=== PATIENT | female | born 1990 | race Caucasian/White ===

== ENCOUNTER 2021-11-15 08:14 | Emergency (ER) | payer MEDICAID, SELFPAY ==
[2021-11-15 08:17] VITALS: BP 129/84; PULSE 969; RESP 18; TEMP 36.8; O2SAT 99; BMI 33.3
--- NOTE | 2021-11-15 12:21 | PC.NURSE ---
No answer during roll call.
== END 2021-11-15 12:34 | disposition left against medical advice (07) ==
LOC: HO.ED 12:23
PROVIDERS: Emergency Provider Emergency Medicine; PCP Nurse Practitioner Family
DX: L02.416 Cutaneous abscess of left lower limb (principal)
CPT/HCPCS: 99281

== ENCOUNTER 2022-12-08 12:19 | Emergency (ER) | payer OTHER, SELFPAY ==
--- NOTE | ~2022-12-08 | XR_ITS ---
EXAMINATION: XR FOREARM, RIGHT CLINICAL INFORMATION: Right forearm pain COMPARISON: None available. TECHNIQUE: 2 views of the right forearm. AP and lateral views of the right forearm were obtained. FINDINGS: The bones and soft tissues are normal. No fracture. Imaged portions of the elbow and wrist are unremarkable. XR/XR forearm RT 2V IMPRESSION: Unremarkable right forearm x-rays.
[2022-12-08 12:29] VITALS: BP 136/58; PULSE 89; RESP 18; TEMP 36.8; O2SAT 98; BMI 32.6
--- NOTE | 2022-12-08 12:29 | ED.SKABFB ---
HPI - Skin/Abscess/Foreign Bdy General Chief complaint: Wound/Laceration Stated complaint: R arm abscess Time Seen by Provider: 12/08/22 13:33 Source: patient Mode of arrival: ambulatory Limitations: no limitations History of Present Illness HPI narrative: Patient is a 32 year old female history of IV drug abuse presenting with an abscess to the right forearm which has been present for 5 days worsening secondary to IV drug use. Patient reports the abscesses self draining, red, hot and painful to the touch and has black stuff over it. Patient states that she popped the abscess yesterday with decrease in pain at this time. Patient reports current IV drug abuse, last use a few hours prior to arrival. Patient denies all sign HI. Denies fevers, chills, chest pain, shortness of breath, nausea, vomiting, abdominal pain, headache, vision changes, dizziness and weakness. Related Data Previous Rx's Medication Instructions Recorded cephalexin 500 mg tablet 500 mg PO Q6H 10 days #40 tabs 12/08/22 doxycycline hyclate 100 mg capsule 100 mg PO BID 10 days #20 caps 12/08/22 Allergies Allergy/AdvReac Type Severity Reaction Status Date / Time SEASONAL ALLERGIES Allergy Unknown ITCHY Uncoded 12/08/22 12:29 EYES/SNEEZING Review of Systems Review of Systems: Constitutional : No Weight loss, No Fever, No Chills, No Fatigue, No Malaise ENT/Mouth : No sore throat, No Rhinorrhea Eyes: No Eye Pain, No Swelling, No Redness Cardiovascular : No Chest Pain, No SOB, No Dyspnea on Exertion, No Orthopnea, No Edema, No Palpitations Respiratory : No Cough, No Sputum, No Wheezing Gastrointestinal : No Nausea, No Vomiting, No Diarrhea, No Constipation, No abdominal Pain, No Hematochezia, No Melena Genitourinary : No Dysuria, No Urinary Frequency, No Hematuria, Musculoskeletal : No joint pain, No Myalgias, No Joint Swelling Skin : No Skin Lesions, No rash, + abscess Neuro : No Weakness, No Numbness, No Dizziness, No Headache Psych : No Anxiety/Panic, No Depression All other systems reviewed and are negative Yes all other systems are reviewed and are negative PMFSH Past Medical History Attestation statement: The following information was validated with the patient. Source: old records reviewed and nursing notes reviewed Social History Social History Smoked in Last 30 Days: Yes Advance Directives: No Advance Directives Information Provided: No Physical Exam Vital Signs: Vital Signs: Last Vital Signs Temp 98.4 F 12/08/22 14:51 Pulse 71 12/08/22 14:51 Resp 16 12/08/22 14:51 BP 107/66 12/08/22 14:51 Pulse Ox 100 12/08/22 14:51 O2 Del Method Room Air 12/08/22 14:51 BMI result Body Mass Index 32.6 vss Appearance: Alert.? Oriented X3.? No acute distress.? Head: Normocephalic, atraumatic, no step-offs or deformities Eyes: Pupils equal, round and reactive to light.? ENT: Pharynx normal.? Neck: Normal inspection.? Neck supple.? CVS: Normal heart rate and rhythm.? Pulses normal.? Respiratory: No respiratory distress.? Breath sounds normal.? Abdomen: Soft and nontender.? Skin: Skin warm and dry.? Normal skin color.? Normal skin turgor.? Extremities: No lower extremity edema.? No calf ttp. 5/5 strength to bilateral upper and lower extremities +Right forearm with swelling and cellulitis, moderate sized carbuncle with multiple small pustules and area of black nectrotic tissue on the surface 2+ radial pulses equal bilateral. No wrist drop. Capillary refill less than [address] Track haywood rule out bilateral upper extremities Back: No midline tenderness, no C-spine tenderness, full range of motion, no CVA tenderness bilaterally Neuro: Oriented X 3.? No motor deficit.? No sensory deficit. CN 2-12 intact Course Course Course Narrative: RME - 32 yo female with history of IVDA presents to the ER for evaluation of a right forearm abscess for the last 4 days. some of it popped last night. No fever or chills. Right forearm with swelling and cellulitis, moderate sized carbuncle with multiple small pustules and area of black nectrotic tissue on the surface. NV intact distally, good radial pulse. Plan: labs, cultures, I&D, abx Reevaluation(s) Reevaluation #1: CBC unremarkable. Chemistry with no acute findings requiring intervention. Transaminases elevated no abdominal tenderness on exam no need for further imaging likely hepatitis. Lactic acid within normal limits. Ethanol negative. Opiates, fentanyl and cocaine positive. Patient received this is Zosyn, refusing vanco, refusing hospital admission for possible surgical washout. I am concerned for an abscess with gangrene, patient aware in verbalizes understanding leaving against medical advice will not give me a reason as to why she is leaving she just states she would like to leave. She is not taking the 2nd antibiotic. We will send Keflex and doxycycline to her pharmacy. Will give her General surgery follow-up in advised return with new or worsening symptoms. Also gave her instructions on warm compresses. Time: 15:03 Medications Administered Discontinued Medications Generic Name Dose Route Start Last Admin Trade Name Freq PRN Reason Stop Dose Admin Piperacillin Sod/Tazobactam 50 mls @ 100 mls/hr 12/08/22 13:59 12/08/22 14:41 Sod 3.375 gm/ Sodium Chloride IV 12/08/22 14:28 100 mls/hr ONCE ONE Administration Medical Decision Making Medical Decision Making [facility] Narrative: 32-year-old female presents with abscess to right ventral forearm worsening over the past few days Physical exam significant for No lower extremity edema.? No calf ttp. 5/5 strength to bilateral upper and lower extremities +Right forearm with swelling and cellulitis, moderate sized carbuncle with multiple small pustules and area of black nectrotic tissue on the surface 2+ radial pulses equal bilateral. No wrist drop. Capillary refill less than [address] Track haywood rule out bilateral upper extremities Concerns for abscess with overlying necrotic skin and cellulitis. Concerns for possible infection with MRSA. Unlikely sepsis. Will rule out electrolyte abnormalities. Unlikely osteomyelitis. Plan labs, imaging. This will likely require hospital admission and surgical washout. No need for incision and drainage as patient's abscess is currently self draining with purulence. Differential Diagnosis Differential Diagnoses: The differential diagnosis associated with the presentation includes Concerns for abscess with overlying necrotic skin and cellulitis. Concerns for possible infection with MRSA. Unlikely sepsis. Will rule out electrolyte abnormalities. Unlikely osteomyelitis. Admission/Observation Consideration of admission/observation: Escalation of care including admission/observation considered Likely Consult Healthcare Provider Spoke to my attending about this case. Lab Data [facility] Lab Attestation statement: I reviewed the patient's lab results. 12/08/22 13:54 12/08/22 13:54 Labs: Lab Results 12/08/22 12/08/2212/08/23 Range/Units 13:54 13:54 13:54 WBC 7.7 (4.8-10.8) X10*3/uL RBC 4.21 (4.20-5.50) X10*6/uL Hgb 12.4 (12.0-16.0) g/dl Hct 37.3 (37.0-47.0) % MCV 88.6 (80.0-98.0) fL MCH 29.5 (27.0-33.0) pg MCHC 33.2 (31.0-35.0) g/dl RDW 12.5 (11.0-16.0) % Plt Count 261 (160-400) X10*3/uL MPV 9.4 (9.4-12.3) fL Immature Gran % (Auto) 0.3 (0.0-0.4) % Neut % (Auto) 46.7 (45-73) % Lymph % (Auto) 45.2 H (20-40) % Independence % (Auto) 6.4 (2-11) % Eos % (Auto) 1.0 (0-4) % Baso % (Auto) 0.4 (0-2) % Lymph # (Auto) 3.5 (1.2-4.9) X10*3/uL Independence # (Auto) 0.5 (0.1-1.2) X10*3/uL Eos # (Auto) 0.1 (0.0-0.4) X10*3/uL Baso # (Auto) 0.0 (0.0-0.2) X10*3/uL Abs Immat Gran (auto) 0.02 (0.00-0.03) X10*3/uL Absolute Neuts (auto) 3.6 (2.0-8.3) x10*3/uL Absolute Nucleated RBC 0.000 (0.0-0.012) X10*3/uL Nucleated RBC % (auto) 0.0 (0.0-0.2) /100WBC Sodium 138 (135-145) mmol/L Potassium 4.2 (3.3-5.1) mmol/L Chloride 101 (96-108) mmol/L Carbon Dioxide 29 (22-29) mmol/L Anion Gap 12 (12-20) BUN 16 (9-16) mg/dL Creatinine 0.69 (0.5-1.4) mg/dL Estim Creat Clear Calc 130.1 Estimated GFR > 60 Random Glucose 104 (60-115) mg/dL Lactic Acid 0.9 (0.5-2.0) mmol/L Calcium 9.4 (8.4-10.2) mg/dL Magnesium 1.8 (1.6-2.6) mg/dL Total Bilirubin 0.6 (0.0-1.0) mg/dL Direct Bilirubin 0.2 (0.0-0.5) mg/dL AST 203 H (5-31) U/L ALT 245 H (0-31) U/L Alkaline Phosphatase 105 (39-117) U/L Total Protein 8.0 (6.5-8.0) g/dL Albumin 3.7 (3.5-5.0) g/dL Urine Opiates Screen (Not Detect) Urine Fentanyl Screen (Not Detect) Ur Barbiturates Screen (Not Detect) Ur Phencyclidine Scrn (Not Detect) Ur Amphetamines Screen (Not Detect) U Benzodiazepines Scrn (Not Detect) Urine Cocaine Screen (Not Detect) U Marijuana (THC) Screen (Not Detect) Ethyl Alcohol < 10 mg/dL 12/08/22 Range/Units 14:13 WBC (4.8-10.8) X10*3/uL RBC (4.20-5.50) X10*6/uL Hgb (12.0-16.0) g/dl Hct (37.0-47.0) % MCV (80.0-98.0) fL MCH (27.0-33.0) pg MCHC (31.0-35.0) g/dl RDW (11.0-16.0) % Plt Count (160-400) X10*3/uL MPV (9.4-12.3) fL Immature Gran % (Auto) (0.0-0.4) % Neut % (Auto) (45-73) % Lymph % (Auto) (20-40) % Independence % (Auto) (2-11) % Eos % (Auto) (0-4) % Baso % (Auto) (0-2) % Lymph # (Auto) (1.2-4.9) X10*3/uL Independence # (Auto) (0.1-1.2) X10*3/uL Eos # (Auto) (0.0-0.4) X10*3/uL Baso # (Auto) (0.0-0.2) X10*3/uL Abs Immat Gran (auto) (0.00-0.03) X10*3/uL Absolute Neuts (auto) (2.0-8.3) x10*3/uL Absolute Nucleated RBC (0.0-0.012) X10*3/uL Nucleated RBC % (auto) (0.0-0.2) /100WBC Sodium (135-145) mmol/L Potassium (3.3-5.1) mmol/L Chloride (96-108) mmol/L Carbon Dioxide (22-29) mmol/L Anion Gap (12-20) BUN (9-16) mg/dL Creatinine (0.5-1.4) mg/dL Estim Creat Clear Calc Estimated GFR Random Glucose (60-115) mg/dL Lactic Acid (0.5-2.0) mmol/L Calcium (8.4-10.2) mg/dL Magnesium (1.6-2.6) mg/dL Total Bilirubin (0.0-1.0) mg/dL Direct Bilirubin (0.0-0.5) mg/dL AST (5-31) U/L ALT (0-31) U/L Alkaline Phosphatase (39-117) U/L Total Protein (6.5-8.0) g/dL Albumin (3.5-5.0) g/dL Urine Opiates Screen POSITIVE H (Not Detect) Urine Fentanyl Screen POSITIVE H (Not Detect) Ur Barbiturates Screen Not Detected (Not Detect) Ur Phencyclidine Scrn Not Detected (Not Detect) Ur Amphetamines Screen Not Detected (Not Detect) U Benzodiazepines Scrn Not Detected (Not Detect) Urine Cocaine Screen POSITIVE H (Not Detect) U Marijuana (THC) Screen Not Detected (Not Detect) Ethyl Alcohol mg/dL Independent Interpretation I performed an independent interpretation of an: Plain X-Ray (XR/XR forearm RT 2V IMPRESSION: Unremarkable right forearm x-rays.) Radiology Impression Discussion of test interpretation with radiology: I have reviewed the radiologist's reading. Prescription Management I considered prescription management with: Antibiotic (Doxycycline and Keflex) Social Determinants Patient?s care significantly limited by Social Determinants of Health including: Low income and Alcoholism and drug addiction in family Core Measures AMI core measures followed: Yes Measure exclusions: not indicated Critical Care Time Critical Care Time Critical Care Time: No Discharge Plan Discharge Clinical Impression: Abscess, Left against medical advice, Cellulitis Patient Disposition: Left Against Medical Advice Instructions: Cellulitis (DC), Abscess (ED), Against Medical Advice (ED), Abscess Follow-up (ED), Abscess Incision and Drainage (DC), Warm Compress or Soak (ED) Additional Instructions: Take your medications as prescribed. If you were prescribed antibiotics today, it is important that you take your medication to their entirety, do not skip any doses, do not finish them early. Follow-up with your primary care provider this week. Return to the emergency department with new or worsening symptoms. Such as fevers, chills, chest pain, shortness of breath, nausea, vomiting, dizziness, headache, vision changes, lethargy In case of emergency call 911 You decided to leave against medical advice risks include worsening condition, threatened limb, concerns for possible sepsis, worsening infection, . Prescriptions: New doxycycline hyclate 100 mg capsule 100 mg PO BID 10 Days Qty: 20 0RF cephalexin 500 mg tablet 500 mg PO Q6H 10 Days Qty: 40 0RF Referrals: [facility] [place] [facility] [Provider Group] - 2 days Physician,Unknown J [Primary Care Provider] - 2 days Stand Alone Forms: Against Medical Advice
[2022-12-08 14:00] LABS: MANUAL DIFF FLAG NO
[2022-12-08 14:01] LABS: Basophils Percent Auto 0.4 % (0-2); Eosinophils Absolute Auto 0.1 X10*3/uL (0.0-0.4); Hematocrit 37.3 % (37.0-47.0); Hemoglobin 12.4 g/dl (12.0-16.0); Imm Gran Abs Auto 0.02 X10*3/uL (0.00-0.03); Imm Gran Pct Auto 0.3 % (0.0-0.4); Lymphocytes Absolute Auto 3.5 X10*3/uL (1.2-4.9); Lymphocytes Percent Auto 45.2 % (20-40); Mean Corpuscular HGB Conc 33.2 g/dl (31.0-35.0); Mean Corpuscular Hemoglobin 29.5 pg (27.0-33.0); Mean Corpuscular Volume 88.6 fL (80.0-98.0); Mean Platelet Volume 9.4 fL (9.4-12.3); Monocytes Absolute Auto 0.5 X10*3/uL (0.1-1.2); Monocytes Percent Auto 6.4 % (2-11); Neutrophils Absolute Auto 3.6 x10*3/uL (2.0-8.3); Neutrophils Percent Auto 46.7 % (45-73); Platelet Count 261 X10*3/uL (160-400); Red Blood Count 4.21 X10*6/uL (4.20-5.50); Red Cell Distribution Width 12.5 % (11.0-16.0); White Blood Count 7.7 X10*3/uL (4.8-10.8)
[2022-12-08 14:29] LABS: Amphetamine Screen Urine Not Detected (Not Detect); Barbiturates, Urine Not Detected (Not Detect); Benzodiazepines Screen Urine Not Detected (Not Detect); Cannabinoid Screen Urine Not Detected (Not Detect); Cocaine Screen Urine POSITIVE (Not Detect); Fentanyl, urine POSITIVE (Not Detect); Opiate Screen Urine POSITIVE (Not Detect); Phencyclidine Screen Urine Not Detected (Not Detect)
[2022-12-08 14:31] LABS: Alanine Aminotransferase 245 U/L (0-31); Albumin Level 3.7 g/dL (3.5-5.0); Alkaline Phosphatase 105 U/L (39-117); Anion Gap 12 (12-20); Aspartate Amino Transferase 203 U/L (5-31); Bilirubin Direct 0.2 mg/dL (0.0-0.5); Bilirubin Total 0.6 mg/dL (0.0-1.0); Blood Urea Nitrogen 16 mg/dL (9-16); Calcium 9.4 mg/dL (8.4-10.2); Carbon Dioxide 29 mmol/L (22-29); Chloride 101 mmol/L (96-108); Creatinine Clr Calc Pharmacy 130.1; Estimated Glomerular Filt Rate > 60; Ethanol < 10 mg/dL; Glucose Random 104 mg/dL (60-115); Magnesium 1.8 mg/dL (1.6-2.6); Potassium 4.2 mmol/L (3.3-5.1); Sodium 138 mmol/L (135-145)
[2022-12-08] MEDS: Piperacillin Sodium/Tazobactam 3.375 GM in 0.9 % Sodium Chloride 50 ML IV (14:41)
[2022-12-08 14:43] LABS: Lactic Acid 0.9 mmol/L (0.5-2.0)
[2022-12-08 14:51] VITALS: BP 107/66; PULSE 71; RESP 16; TEMP 36.9; O2SAT 100
--- NOTE | 2022-12-08 14:53 | PC.NURSE ---
pt eating , iv antibiotics infusing. provider at the bedside to address right arm abscess
--- NOTE | 2022-12-08 15:06 | PC.NURSE ---
pt refusing further ed care, she is leaving, AMA provider has discussed risks with this patient.
== END 2022-12-08 15:26 | disposition left against medical advice (07) ==
PROVIDERS: Physician Assistant; Emergency Provider Emergency Medicine
DX: L02.413 Cutaneous abscess of right upper limb (principal); L03.113 Cellulitis of right upper limb; F19.10 Other psychoactive substance abuse, uncomplicated
CPT/HCPCS: 36415; 73090; 80048; 80076; 80307; 83605; 83735; 85025; 87040; 96365; 99284; J2543

== ENCOUNTER 2023-09-12 13:44 | Inpatient (IN) | payer OTHER, SELFPAY ==
[2023-09-12] VITALS (9 sets, daily range): BP systolic 102–125; BP diastolic 45–68; PULSE 77–125; RESP 16–20; TEMP 36.6–37.9; O2SAT 95–98; BMI 32.4; BMI 31.5
--- NOTE | ~2023-09-12 | US_ITS ---
Examination: Ultrasound venous duplex right upper extremity and right lower extremity. CLINICAL INDICATION: Arm swelling and leg swelling. COMPARISON: None. TECHNIQUE: Ultrasound venous grayscale, color and Doppler imaging of right upper extremity and right lower extremity veins is performed. FINDINGS: RIGHT UPPER EXTREMITY: There is normal flow and respiratory variation seen in the right internal jugular, right subclavian, right axillary, cephalic, basilar lytic, brachial, radial and ulnar veins. No evidence of DVT. RIGHT LOWER EXTREMITY: There is normal flow, compression and respiratory tree variation seen in the right common femoral, greater saphenous, superficial femoral, popliteal, posterior tibial and peroneal veins. The soft tissues are normal. Incidental finding of the right groin lymph node measuring 3.4 x 0.9 cm with central echogenic normal medulla. There is no Caban's cyst. US/US venous duplex UE RT IMPRESSION: Unremarkable right extremity venous study. No DVT. Unremarkable right lower extremity venous study. No evidence of DVT. Incidental finding of a benign right groin lymph node.
--- NOTE | ~2023-09-12 | XR_ITS ---
EXAMINATION: XR CHEST CLINICAL INFORMATION: Cough. COMPARISON: None available. TECHNIQUE: Frontal view of the chest was obtained. FINDINGS: The lungs are well expanded. No focal consolidation. No pleural effusion. Cardiac silhouette is within normal limits. XR/XR chest 1V IMPRESSION: No acute abnormality.
--- NOTE | ~2023-09-12 | US_ITS ---
Examination: Ultrasound venous duplex right upper extremity and right lower extremity. CLINICAL INDICATION: Arm swelling and leg swelling. COMPARISON: None. TECHNIQUE: Ultrasound venous grayscale, color and Doppler imaging of right upper extremity and right lower extremity veins is performed. FINDINGS: RIGHT UPPER EXTREMITY: There is normal flow and respiratory variation seen in the right internal jugular, right subclavian, right axillary, cephalic, basilar lytic, brachial, radial and ulnar veins. No evidence of DVT. RIGHT LOWER EXTREMITY: There is normal flow, compression and respiratory tree variation seen in the right common femoral, greater saphenous, superficial femoral, popliteal, posterior tibial and peroneal veins. The soft tissues are normal. Incidental finding of the right groin lymph node measuring 3.4 x 0.9 cm with central echogenic normal medulla. There is no Caban's cyst. US/US venous duplex LE RT IMPRESSION: Unremarkable right extremity venous study. No DVT. Unremarkable right lower extremity venous study. No evidence of DVT. Incidental finding of a benign right groin lymph node.
--- NOTE | 2023-09-12 13:59 | ED.GENADULT ---
HPI - General Adult General Chief complaint: Skin/Abscess/Foreign Body Stated complaint: Abscesses on right arm & leg Time Seen by Provider: 09/12/23 14:07 History of Present Illness HPI narrative: Patient is a 33-year-old female with a history of polysubstance abuse. Presented today with having swelling to the right arm right leg to the left hand the symptom has been ongoing getting worse over last 24 hours. Had a fever. Had generalized malaise. Positive coughing upper respiratory symptoms. Denies any chest pain. Related Data Previous Rx's Medication Instructions Recorded cephalexin 500 mg tablet 500 mg PO Q6H 10 days #40 tabs 12/08/22 doxycycline hyclate 100 mg capsule 100 mg PO BID 10 days #20 caps 12/08/22 Allergies Allergy/AdvReac Type Severity Reaction Status Date / Time SEASONAL ALLERGIES Allergy Unknown ITCHY Uncoded 09/12/23 13:57 EYES/SNEEZING Review of Systems Review of Systems: Positive history of IVDU Positive fever Positive generalized malaise Yes all other systems are reviewed and are negative PMFSH Past Medical History Attestation statement: The following information was validated with the patient. Medical History IVDU (intravenous drug user) Surgical History (Updated 09/12/23 @ 16:38 by Quiana Irvin RN) History of delivery H/O dilation and curettage Social History Social History Smoked in Last 30 Days: Yes Use of substances other than those prescribed or required for medical reasons: Yes Substance Use Type: Crack/Cocaine and Heroin Last Used Substance: Hours (ago) Any prior treatment program specific to substance use: Yes Advance Directives: No Advance Directives Information Provided: No Patient : No Physical Exam ED Vital Signs: Vital Signs - 24 hr 09/12/23 13:57 09/12/23 15:28 09/12/23 16:34 Temperature 100.1 F 100.3 F 100.0 F Pulse Rate 125 H 99 92 Respiratory Rate 16 18 18 Blood Pressure 115/68 125/62 102/62 Pulse Oximetry 95 95 97 Oxygen Delivery Method Room Air Room Air Room Air BMI result Body Mass Index 32.4 Appearance: Alert. Oriented X3. No acute distress. Eyes: Pupils equal, round and reactive to light. ENT: Pharynx normal. Neck: Normal inspection. Neck supple. No lymph nodes noted. No crepitus CVS: Normal heart rate and rhythm. Pulses normal. Normal S1 and S2. No murmurs appreciated Respiratory: No respiratory distress. Breath sounds normal. No Wheezing. No rales Abdomen: Soft and nontender. No rigidity. No distention. good BS x4 Skin: S positive redness over the right hand with streaks of redness extending all the way to the axilla through the forearm and arm. There is no gross fluctuance noted on palpation. There is swelling over the right lower extremity as well. There is redness streaking from the leg all the way up to the groin. There is no fluctuance as well. There is good range of motion of the hip and knee. There is good distal pulses. Examination of the left hand showed redness over the dorsum of the hand. Multiple track haywood noted in the arm legs. Extremities: No lower extremity edema. Neurovascular intact to all extremities. No Lacerations. No Rash Neuro: Oriented X 3. No motor deficit. No sensory deficit. Moving all extermities. No slurred speech Course Course Course Narrative: 1405 This is an RME: Additional HPI, ROS, PE not included below will be deferred to primary provider. 32 year old female history of IV drug abuse presenting with an abscesses to RUE, RLE, LLE complaining of pain 10/10. Reports subjective fevers. Reprots sites of abscess patient has shot up in. PE- cellulitis at R upper and lower extremity with lymphangitis spread. LLE cellulitis Tachycardic and low grade fever. Plan- labs, imaging Infection suspected. IV atbx and fluids ordered Medications Administered Discontinued Medications Generic Name Dose Route Start Last Admin Trade Name Freq PRN Reason Stop Dose Admin Acetaminophen 975 mg 09/12/23 16:44 09/12/23 16:53 Acetaminophen 325 Mg Tablet PO 09/12/23 16:45 975 mg ONCE ONE Administration Piperacillin Sod/Tazobactam 50 mls @ 100 mls/hr 09/12/23 14:02 09/12/23 16:30 Sod 3.375 gm/ Sodium Chloride IV 09/12/23 14:31 100 mls/hr ONCE ONE Administration Sodium Chloride 2,646 mls @ 2,646 mls/hr 09/12/23 14:04 09/12/23 16:30 Ns 30 ml/kg infuse over 1 hr (2646 ml) 09/12/23 15:03 2,646 mls/hr IV Administration .Q1H STA Procedures Central Line Placement Right Femoral: Time Out Performed: Yes Patient Placed on Monitor/Pulse Ox: Yes Prep: mask, gown and gloves Central Line Prep: Chlorhexidine scrub Local Anesthetic: lidocaine 1% Amount of anesthesia used (mL): 3 Ultrasound Used for Placement: No Central Line Lumen Inserted: triple Post Procedure: good blood return, all ports aspirated, flushed, capped and sterile dressing applied Post Procedure X-Ray: tip of catheter in good position Patient Tolerated Procedure: well and no complications Complications: none Medical Decision Making Medical Decision Making [facility] Narrative: Patient's white count is 16. Hemoglobin is 11. Significant infection in the arms legs. Poor follow-up candidate. Patient's lactate is normal. No evidence for severe sepsis. IV fluids given antibiotics started. A central line was placed. Discussed with patient the need to stay. Patient states understanding. Will stay for IV antibiotics and treatment no murmurs was appreciated case was discussed with the hospitalist team. After IV fluids patient's symptom improved. Repeat exam showed patient's lungs are clear. Appears no distress. Differential Diagnosis Differential Diagnoses: The differential diagnosis associated with the presentation includes Cellulitis, DVT, abscess Admission/Observation Consideration of admission/observation: Escalation of care including admission/observation considered Consult Healthcare Provider Management of the patient was discussed with: Hospitalist Lab Data [facility] Lab Attestation statement: I reviewed the patient's lab results. 09/12/23 16:23 09/12/23 16:23 Labs: Lab Results 09/12/23 Range/Units 16:23 WBC 16.4 H (4.8-10.8) X10*3/uL RBC 3.89 L (4.20-5.50) X10*6/uL Hgb 11.1 L (12.0-16.0) g/dl Hct 32.9 L (37.0-47.0) % MCV 84.6 (80.0-98.0) fL MCH 28.5 (27.0-33.0) pg MCHC 33.7 (31.0-35.0) g/dl RDW 13.6 (11.0-16.0) % Plt Count 248 (160-400) X10*3/uL MPV 9.0 L (9.4-12.3) fL Immature Gran % (Auto) 0.8 H (0.0-0.4) % Neut % (Auto) 76.3 H (45-73) % Lymph % (Auto) 16.3 L (20-40) % Thomas % (Auto) 6.5 (2-11) % Eos % (Auto) 0.0 (0-4) % Baso % (Auto) 0.1 (0-2) % Lymph # (Auto) 2.7 (1.2-4.9) X10*3/uL Thomas # (Auto) 1.1 (0.1-1.2) X10*3/uL Eos # (Auto) 0.0 (0.0-0.4) X10*3/uL Baso # (Auto) 0.0 (0.0-0.2) X10*3/uL Abs Immat Gran (auto) 0.13 H (0.00-0.03) X10*3/uL Absolute Neuts (auto) 12.5 H (2.0-8.3) x10*3/uL Absolute Nucleated RBC 0.000 (0.0-0.012) X10*3/uL Nucleated RBC % (auto) 0.0 (0.0-0.2) /100WBC Sodium 134 L (135-145) mmol/L Potassium 3.9 (3.3-5.1) mmol/L Chloride 98 (96-108) mmol/L Carbon Dioxide 27 (22-29) mmol/L Anion Gap 13 (12-20) BUN 15 (9-16) mg/dL Creatinine 0.83 (0.5-1.4) mg/dL Estim Creat Clear Calc 106.7 Estimated GFR > 60 Random Glucose 109 (60-115) mg/dL Lactic Acid 0.6 (0.5-2.0) mmol/L Calcium 8.9 (8.4-10.2) mg/dL Magnesium 1.8 (1.6-2.6) mg/dL Total Bilirubin 0.6 (0.0-1.0) mg/dL AST 17 (5-31) U/L ALT 10 (0-31) U/L Alkaline Phosphatase 92 (39-117) U/L Total Protein 8.1 H (6.5-8.0) g/dL Albumin 3.5 (3.5-5.0) g/dL Beta HCG, Quant < 2 mIU/mL Independent Interpretation I performed an independent interpretation of an: Ultrasound (Doppler ultrasound bilateral lower extremities are negative) Radiology Impression Discussion of test interpretation with radiology: I have reviewed the radiologist's reading. External Record Review No significant record noted in the hospital Chronic Conditions IV drug use Social Determinants Patient?s care significantly limited by Social Determinants of Health including: Alcoholism and drug addiction in family Critical Care Time Critical Care Time Critical Care Time: Yes Total Critical Care Time: 40 Attestation: I have personally provided 40 minutes of critical care time exclusive of time spent on separately billable procedures. ?Time includes review of lab data, radiology results, discussion with consultants, and monitoring for potential decompensation. ?Interventions were performed as documented above Discharge Plan Discharge Clinical Impression: Cellulitis Patient Disposition: Admitted As Inpatient Prescriptions: No Action doxycycline hyclate 100 mg capsule 100 mg PO BID 10 Days Qty: 20 0RF cephalexin 500 mg tablet 500 mg PO Q6H 10 Days Qty: 40 0RF
--- NOTE | 2023-09-12 14:20 | PC.NURSE ---
pt very difficult stick, multiple nurses as well as medic student have attempted IV access, Dr. Juarez was notified
--- NOTE | 2023-09-12 14:44 | PC.NURSE ---
Dr. Juarez at bedside attempting US guided IV
--- NOTE | 2023-09-12 15:27 | PC.NURSE ---
multiple attempts by provider doing US and EJ without success, provider making decisions of how to gain access
--- NOTE | 2023-09-12 16:13 | PC.NURSE ---
Dr. barajas at bedside inserting a triple lumen central line to left fem, currently in process of suturing this in.
[2023-09-12] MEDS: Piperacillin Sodium/Tazobactam 3.375 GM in 0.9 % Sodium Chloride 50 ML IV ×2 (16:30→22:31)
[2023-09-12 16:33] LABS: MANUAL DIFF FLAG NO
[2023-09-12 16:35] LABS: Basophils Percent Auto 0.1 % (0-2); Hematocrit 32.9 % (37.0-47.0); Hemoglobin 11.1 g/dl (12.0-16.0); Imm Gran Abs Auto 0.13 X10*3/uL (0.00-0.03); Imm Gran Pct Auto 0.8 % (0.0-0.4); Lymphocytes Absolute Auto 2.7 X10*3/uL (1.2-4.9); Lymphocytes Percent Auto 16.3 % (20-40); Mean Corpuscular HGB Conc 33.7 g/dl (31.0-35.0); Mean Corpuscular Hemoglobin 28.5 pg (27.0-33.0); Mean Corpuscular Volume 84.6 fL (80.0-98.0); Monocytes Absolute Auto 1.1 X10*3/uL (0.1-1.2); Monocytes Percent Auto 6.5 % (2-11); Neutrophils Absolute Auto 12.5 x10*3/uL (2.0-8.3); Neutrophils Percent Auto 76.3 % (45-73); Platelet Count 248 X10*3/uL (160-400); Red Blood Count 3.89 X10*6/uL (4.20-5.50); Red Cell Distribution Width 13.6 % (11.0-16.0); White Blood Count 16.4 X10*3/uL (4.8-10.8)
--- NOTE | 2023-09-12 16:45 | PC.NURSE ---
patient a&ox3, vss, all labs obtained, nasal swab obtained, manager monitoring nsr, ivf started per order, iv abx hung per order, call harris within reach, will continue to monitor
[2023-09-12 16:46] LABS: Lactic Acid 0.6 mmol/L (0.5-2.0)
[2023-09-12 16:50] LABS: Alanine Aminotransferase 10 U/L (0-31); Albumin Level 3.5 g/dL (3.5-5.0); Alkaline Phosphatase 92 U/L (39-117); Anion Gap 13 (12-20); Aspartate Amino Transferase 17 U/L (5-31); Bilirubin Total 0.6 mg/dL (0.0-1.0); Blood Urea Nitrogen 15 mg/dL (9-16); Calcium 8.9 mg/dL (8.4-10.2); Carbon Dioxide 27 mmol/L (22-29); Chloride 98 mmol/L (96-108); Creatinine Clr Calc Pharmacy 106.7; Estimated Glomerular Filt Rate > 60; Glucose Random 109 mg/dL (60-115); Magnesium 1.8 mg/dL (1.6-2.6); Potassium 3.9 mmol/L (3.3-5.1); Sodium 134 mmol/L (135-145); Total Protein 8.1 g/dL (6.5-8.0)
[2023-09-12] MEDS: Acetaminophen 325 MG TABLET 975 MG PO (16:53)
[2023-09-12 16:59] LABS: HCG Quantitative < 2 mIU/mL
[2023-09-12 17:18] LABS: Influenza A PCR NEGATIVE (Negative); Influenza B PCR NEGATIVE (Negative); Resp Syncy Virus RNA Qual PCR NEGATIVE (Negative); SARS COV2 PCR INHOUSE NEGATIVE (Negative)
--- NOTE | 2023-09-12 17:24 | P.HPHOSP_ITS ---
History of Present Illness Date of Service: 09/12/23 Attending physician on admission: Miguelito Alexis Chief Complaint: Redness on right arm and leg Pt is a 33-year-old female with a PMH significant for?polysubstance use disorder, IVDU, untreated hepatitis-C, and fatty liver disease who presents to the ED for evaluation of worsening right upper and lower?extremity redness. Patient states last night she noticed diffuse redness and warmth to upper and lower extremities, and experienced subjective fever and chills. Patient thought she had abscesses at injection sites. Presented earlier today as redness continued to spread and experienced pain especially in her legs, which she states made it difficult to walk. Reports she has lately been using heroin, crack, and cocaine, both through IV injection and also smoking. Has been injecting into her legs, arms, hands, and neck. Last used 1 hour prior to arrival to the ED. No chest pain/pressure, palpitations. Denies shortness of breath. No nausea, vomiting, abdominal pain. In the ED pt was tachycardic up to 125 and had elevated temperature up to 100.3. Labs were significant for leukocytosis of 16.4 otherwise grossly unremarkable. Stable H&H. No significant electrolyte abnormalities. Renal and hepatic function WNL. Lactic acid WNL at 0.6. Tested positive for opiates, fentanyl, and cocaine. Tested negative for influenza, COVID, RSV. CXR showed no acute abnormality. Venous duplex ultrasound of right upper and lower extremity negative for DVT. Did find incidental benign right groin lymph node. Pt was treated with acetaminophen, vanc and Zosyn, and IVF. Pt will be admitted to the hospital for treatment further evaluation of right upper and lower extremity cellulitis with sepsis. Review of Systems 2 Review of Systems: Redness and warmth of upper and lower extremities since last night Subjective fever, chills Denies chest pain/pressure, palpitations Nausea, vomiting, abdominal pain Denies shortness of breath [facility] Medical History Fatty liver disease, nonalcoholic Hepatitis C IVDU (intravenous drug user) Surgical History (Updated 09/12/23 @ 16:38 by Quiana Irvin RN) History of delivery H/O dilation and curettage Social History Household Members: Friend(s) Housing: Apartment Do you presently have visiting nurse or other home services: No Patient Tobacco Use Status: Never used Tobacco Smoked in Last 30 Days: Yes e-Cigarette/Vaping Use: Currently Using Frequency of e-Cigarette/Vaping Use: Daily Patient Interested in Nicotine Replacement: No Second Hand Smoke Exposure: No Use of substances other than those prescribed or required for medical reasons: Yes Substance Use Type: Crack/Cocaine and Heroin Substance Use Frequency: Daily Last Used Substance: Just Prior to Admission Currently Displaying Signs/Symptoms of Drug Intoxication Withdrawal: No Any prior treatment program specific to substance use: Yes Have you been hit, kicked, punched, or otherwise hurt by someone within the past year? If so, by whom?: No Do you feel safe in your current relationship?: Yes Is there a partner from a previous relationship who is making you feel unsafe now?: No Are you made to feel afraid or neglected: No Advance Directives: No Advance Directives Information Provided: No Advance Directives on File: No Do you have thoughts of harming others: None Do you have a plan to hurt others: No Plan Recently lost weight without trying: Yes How much weight loss: 2-13 pounds Eating poorly because of decreased appetite: No Nutrition screen score: 3 Nutrition Risks: No Nutritional Risk Patient : No : No Poor oral hygiene: No Meds Allergies Allergy/AdvReac Type Severity Reaction Status Date / Time SEASONAL ALLERGIES Allergy Unknown ITCHY Uncoded 09/12/23 13:57 EYES/SNEEZING Home Medications Medication Instructions Recorded Confirmed Last Taken Type No Known Home Meds 09/12/23 09/12/23 Unknown History Physical Exam 2 Vital Signs and Narrative: Vital Signs: Last Vital Signs Temp 100.0 F 09/12/23 16:34 Pulse 92 09/12/23 16:34 Resp 18 09/12/23 16:34 BP 102/62 09/12/23 16:34 Pulse Ox 97 09/12/23 16:34 O2 Del Method Room Air 09/12/23 16:34 BMI result Body Mass Index 32.4 Constitutional: Alert, in no acute distress. Mental Status: Oriented to person, place and time. Eyes: Pupils are equal, round, and reactive to light. Ear, Nose, and Throat: Oropharynx clear, mucous membranes moist. Ears and nose without deformities. Trachea midline. Respiratory: Clear to auscultation bilaterally. No wheezing, rales, or rhonchi. Cardiovascular: S1, S2 regular. Murmur heard at right sternal bborder that radiates to left carotid. Gastrointestinal: Abdomen soft, non-tender, non-distended. Normal bowel sounds. Neurologic: Cranial nerves II-XII are grossly intact bilaterally. No focal neurological deficits. Moves all extremities spontaneously. Skin: Warm, dry. Musculoskeletal: No cyanosis or clubbing. Extremities: Extensive erythema and warmth on upper and lower extremities. No evidence of abscess, induration, or fluctuance. As pictured below. Psychiatric: Normal mood and affect. Results Labs 09/13/23 05:38 09/13/23 05:38 Labs: Laboratory Results - last 24 hr 09/12/23 09/12/23 16:23 16:24 MCV 84.6 MCH 28.5 MCHC 33.7 RDW 13.6 Plt Count 248 MPV 9.0 L Immature Gran % (Auto) 0.8 H Neut % (Auto) 76.3 H Lymph % (Auto) 16.3 L [place] % (Auto) 6.5 Eos % (Auto) 0.0 Baso % (Auto) 0.1 Lymph # (Auto) 2.7 [place] # (Auto) 1.1 Eos # (Auto) 0.0 Baso # (Auto) 0.0 Abs Immat Gran (auto) 0.13 H Absolute Neuts (auto) 12.5 H Absolute Nucleated RBC 0.000 Nucleated RBC % (auto) 0.0 Anion Gap 13 Estim Creat Clear Calc 106.7 Estimated GFR > 60 Random Glucose 109 Lactic Acid 0.6 Calcium 8.9 Magnesium 1.8 Total Bilirubin 0.6 AST 17 ALT 10 Alkaline Phosphatase 92 Total Protein 8.1 H Albumin 3.5 Beta HCG, Quant < 2 Influenza Type A (PCR) NEGATIVE Influenza Type B (PCR) NEGATIVE RSV RNA Qual (PCR) NEGATIVE SARS-CoV-2 RNA (RT-PCR) NEGATIVE Imaging Radiologist's Impressions: Impressions Chest X-Ray 09/12/23 14:25 IMPRESSION: No acute abnormality. Venous Duplex 09/12/23 15:18 IMPRESSION: Unremarkable right extremity venous study. No DVT. Unremarkable right lower extremity venous study. No evidence of DVT. Incidental finding of a benign right groin lymph node. Venous Duplex 09/12/23 15:18 IMPRESSION: Unremarkable right extremity venous study. No DVT. Unremarkable right lower extremity venous study. No evidence of DVT. Incidental finding of a benign right groin lymph node. Assessment and Plan (1) Cellulitis: Status: Acute Plan Pt is a 33-year-old female with a PMH significant for?polysubstance use disorder, IVDU, untreated hepatitis-C, and fatty liver disease who presents to the ED for evaluation of worsening right upper and lower?extremity redness. Pt will be admitted to the hospital for treatment further evaluation of right upper and lower extremity cellulitis with sepsis. Right upper and lower extremity cellulitis Secondary to IVDU Patient meets sepsis criteria: Tachycardia, leukocytosis; lactic acid WNL at 0.[address] central line, and pt was given IVF and started on broad-spectrum antibiotics Will treat with vanc and Zosyn, started 09/12/2023 Follow cultures Heart murmur Best heard at right sternal border, radiating to left carotid Will get echocardiogram to evaluate for possible endocarditis Will admit to [facility], but keep on continuous cardiac monitoring for now Polysubstance use disorder with IVDU Patient currently using heroin,, and cocaine, both IV and through smoking States last used heroin 1 hour prior to arrival in ED Will treat withdrawal with morphine, methadone p.r.n. Will check HIV and hepatitis A, B, and C Addiction medicine consult Full Code Attending:?Dr. Alexis DVT Prophylaxis: Lovenox Pt will require a hospitalization of at least two nights for treatment of?upper and lower extremity cellulitis with sepsis secondary to IVDU. Patient hospitalization for administration IV antibiotics an additional workup for possible endocarditis. Quality Stroke Does the patient have a stroke diagnosis?: No VTE Prior VTE?: No VTE Risk Level:: Medical - moderate - high VTE Device Contraindication: Treatment Not Indicated VTE Drug Contraindication: N/A - Med Ordered
[2023-09-12] MEDS: vancomycin/NS 2,000 MG/500 ML PLAST..BAG 250 MG IV (17:26)
--- NOTE | 2023-09-12 17:26 | PC.NURSE ---
wilbero started per order
--- NOTE | 2023-09-12 17:26 | PHA.MEDREC ---
Pharmacy Consult ? Medication Reconciliation Pharmacy has completed the medication reconciliation. Patient reported no meds to rn. Elsi Vidal, CarringtonD
[2023-09-12] MEDS: Enoxaparin Sodium 40 MG/0.4 ML SYRINGE SUBCUT (20:14)
--- NOTE | 2023-09-12 21:20 | PC.NURSE ---
Assumed care of pt 1900 pt alert and oriented. Vanco infusion. central line flushed.Linens and gown changed as pt urinated on herself. Pt requested and provided sandwich and gingerale. VSS. Admission report completed. PT report for transport.
--- NOTE | 2023-09-12 21:23 | PC.NURSE ---
Phlebotomy in room for blood drawn informed them of PT central line. [place] blood of line and provided to shad
[2023-09-12] MEDS: 0.9 % Sodium Chloride Flush 3 ML SYRINGE IVFLUSH (22:31)
[2023-09-12] MEDS: Morphine Sulfate 4 MG/ML CARTRIDGE IVPUSH (22:50)
[2023-09-13 03:12] VITALS: BP 131/62; PULSE 107; RESP 18; TEMP 36.8; O2SAT 95
[2023-09-13 04:50] LABS: HBS Num1 159.51 mIU/mL (0-7.99); HBc Num1 0.18 S/CO (0.00-0.79); HBsAGNum1 0.42 S/CO (0.00-0.99); HIV AB/AG Nonreactive (Nonreactive); HIV Num 1 0.07 S/CO (0.00-0.99); Hepatitis A Antibody IgM 0.27 Index (0-0.79); Hepatitis B Core Antibody Nonreactive (Nonreactive); Hepatitis B Surface Antigen Negative (Negative); ~HepC Num1 13.87 S/CO (0.00-0.79); ~Hepatitis A Antibody IgM Nonreactive (Nonreactive); ~Hepatitis B Surface Antibody REACTIVE (Nonreactive); ~Hepatitis C Antibody Reactive (Nonreactive)
[2023-09-13] MEDS: Piperacillin Sodium/Tazobactam 3.375 GM in 0.9 % Sodium Chloride 50 ML IV ×4 (05:02→22:40)
[2023-09-13] MEDS: vancomycin HCL 1,250 MG in 0.9 % Sodium Chloride 250 ML 166.67 MG IV ×2 (05:35→17:34)
[2023-09-13 06:55] LABS: Hematocrit 29.7 % (37.0-47.0); Hemoglobin 9.8 g/dl (12.0-16.0); Mean Corpuscular Hemoglobin 28.7 pg (27.0-33.0); Mean Corpuscular Volume 87.1 fL (80.0-98.0); Mean Platelet Volume 9.9 fL (9.4-12.3); Platelet Count 237 X10*3/uL (160-400); Red Blood Count 3.41 X10*6/uL (4.20-5.50); Red Cell Distribution Width 13.9 % (11.0-16.0); White Blood Count 12.3 X10*3/uL (4.8-10.8)
[2023-09-13 07:00] LABS: Anion Gap 9 (12-20); Blood Urea Nitrogen 12 mg/dL (9-16); Calcium 8.5 mg/dL (8.4-10.2); Carbon Dioxide 27 mmol/L (22-29); Chloride 105 mmol/L (96-108); Creatinine Clr Calc Pharmacy 105.3; Estimated Glomerular Filt Rate > 60; Glucose Random 119 mg/dL (60-115); Potassium 3.8 mmol/L (3.3-5.1); Sodium 137 mmol/L (135-145)
--- NOTE | 2023-09-13 07:00 | CA_ITS ---
Transthoracic Echocardiogram Patient (Last, First, Middle): Chloe Drake, Gender: Female Date of : 1990 Age: 33 Procedure Date: 09/13/2023 Procedure Type: Transthoracic Echocardiogram Location: ER Height: 165.1 cm Weight: 85.73 kg BSA: 1.93 m2 Heart Rate: 94 bpm BP: 131 / 62 mmHg Director New Product: FAMILIA Referring MD: Sarah BARRERA [employer] Installer: Jeff Chowdhury MD Symptoms: Murmur, hx of IVDU Study Quality: Adequate ECG Rhythm: Sinus Conclusions: - Normal study with no clear vegetation seen Findings Left Ventricle Normal left ventricular size, thickness, and systolic function. The visually estimated ejection fraction is between 65-70%. Diastolic function is normal for age. Right Ventricle Normal right ventricular cavity size and systolic function. Atria The left atrium is likely dilated. There is no evidence of interatrial shunt. The right atrium is normal in size. Aortic Valve Normal aortic valve structure and function. There is no aortic valve stenosis. There is no aortic valve regurgitation. Mitral Valve Normal mitral valve structure and function. There is no mitral valve regurgitation. There is no mitral valve stenosis. Pulmonic Valve The pulmonic valve is likely normal. There is no pulmonic valve regurgitation. Tricuspid Valve Normal tricuspid valve structure. There is trace tricuspid valve regurgitation. The right ventricular systolic pressure is normal. The right ventricular systolic pressure is 15 mmHg. Normal right atrial pressure. There is no evidence of pulmonary hypertension. Great Vessels All visible segments of the aorta are normal in size. The visualized portions of the pulmonary artery and branches are normal. Venous The inferior vena cava is normal in size and collapses greater than 50% with inspiration. Pericardium/Pleural There is no evidence of pericardial effusion. Prior Study Comparison No prior study available for comparison. Measurements 2D Linear Measurements IVSd: 1.08 0.6-0.9/0.6-1.0 cm LVIDd: 5.05 3.9-5.3/4.2-5.9 cm LVIDd Index: 2.62 2.4-3.2/2.2-3.1 cm/m2 LVIDs: 3.19 2.0-3.6 cm LVPWd: 1.10 0.7-1.1 cm LA Diam: 4.30 2.7-3.8/3.0-4.0 cm LAIDs Index: 2.23 1.5-2.3 cm/m2 LV Mass: 259.11 67-162/88-224 g LV Mass Index: 134.25 43-95/49-115 g/m2 LVOT Diam: 2.30 3.0+(-)1.3 cm Mitral Valve MV Pk E: 1.02 MV PK A: 0.80 MV Decel Time: 175.00 E/A: 1.30 E'Lateral: 17.40 E'Medial: 10.60 E/E' Med: 9.60 E/E' Lat: 5.90 PHT: 51.00 MVA PHT: 4.31 Decel [place]: 5.80 Aortic Valve AoV Pk Ozzie: 2.38 AoV Mn Ozzie: 1.47 AoV VTI: 0.46 AoV Pk Grad: 23.00 Aov Mn Grad: 11.00 MARKOS Cont.VTI: 2.42 LVOT LVOT Pk Ozzie: 1.32 LVOT Mn Ozzie: 0.88 LVOT VTI: 0.27 LVOT Pk Grad: 7.00 LVOT Mn Grad: 4.00 LVOT Diam: 2.30 LVOT Area: 4.15 Diastolic Function MV Pk E: 1.02 MV Pk A: 0.80 E/A: 1.30 E'Medial: 10.60 E/E' Med: 9.60 E' Laterial: 17.40 E/E' Lat: 5.90 Right Ventricle TAPSE (mm): 26.30 TVS' Ozzie: 18.10 Tricuspid Valve TR Pk Ozzie: 1.72 TR Pk Grad: 12.00 RA Press: 3.00 RVSP: 15.00 Great Vessels Aorta Sinus of Valsalva: 2.80 2.0-3.5 cm Ao Asc: 2.40 2.1-3.4 cm Pulmonary Valve PV Pk Ozzie: 1.52 Peak PV Grad: 9.00 Updated in Other Vendor System with Status of Final Jeff Chowdhury MD electronically signed on 09/13/2023 1:37:02 PM with status of Final
[2023-09-13 07:37] VITALS: BP 118/55; PULSE 100; RESP 16; TEMP 36.8; O2SAT 94
[2023-09-13] MEDS: Morphine Sulfate 4 MG/ML CARTRIDGE IVPUSH ×3 (08:01→20:26)
[2023-09-13] MEDS: 0.9 % Sodium Chloride Flush 3 ML SYRINGE IVFLUSH ×3 (08:07→20:26)
[2023-09-13 08:11] LABS: Immature Retic Fraction 19.8 % (3.0-15.9); Retic HGB Equivalent 31.2 pg (30.0-35.0); Reticulocyte Percent 1.5 % (0.5-1.8); Reticulocytes Absolute 0.052 X10*6/uL (0.026-0.095)
[2023-09-13 08:25] LABS: Iron 15 mcg/dL (30-160); Lactate Dehydrogenase 213 U/L (122-220); Percent Iron Saturation 7 % (15-50); Total Iron Binding Capacity 227 mcg/dL (228-428); Unsaturated Iron Binding 212 ug/dL
[2023-09-13 08:38] LABS: Ferritin 99 ng/mL (10-122)
[2023-09-13] MEDS: methADONE HCl 20 MG/2 ML ORAL.CONC 30 MG PO (09:09)
--- NOTE | 2023-09-13 09:18 | MHC.RECOVRN ---
Met with pt in 369 after consult placed to Addiction Medicine for CHYNA. Pt had presented to the ED for redness/pain that begins at right hand and extends up to just below axilla as well as red area noted right inner knee area. Pt did have low grade fever and tachycardic, sepsis alert was called. Upon evaluation, pt admitted for treatment of cellulitis. Pt laying in bed, awake, alert, engages in conversation, appears uncomfortable and restless. Pt reports heroin/fentanyl use, 2 bundles daily, IV, as well as cocaine use, IV/INH, 2-3 grams daily, last use 09/11 approx 1400. Pt currently reports hot/cold flashes and body aches. Pt reports she has been on methadone in the past, 60 mg. Pt would like to utilize methadone while here to address withdrawal symptoms. Pt denies questions or concerns at this time. Discussed with Emily Suh APRN.
--- NOTE | 2023-09-13 09:36 | HO.PM.IMPN ---
Subjective Subjective Date of Service: 09/13/23 Interval History: afebrile overnight painful legs Review of Systems Review of Systems: Yes all other systems are reviewed and are negative Physical Exam Vital Signs: Vital Signs: Last Vital Signs Temp 98.3 F 09/13/23 07:37 Pulse 100 09/13/23 07:37 Resp 16 09/13/23 07:37 BP 118/55 L 09/13/23 07:37 Pulse Ox 94 09/13/23 07:37 O2 Del Method Room Air 09/13/23 07:37 BMI result Body Mass Index 31.5 Gen: disheveled HEENT: sclera anicteric, moist mucus membranes Neck: supple Lungs: clear to auscultation bilaterally Heart: regular rate and rhythm, systolic murmur along LLSB Abd: soft, non-tender, non-distended Ext: no edema, R femoral central line [placed 09/12/23] Skin: extensive track [place], patchy erythema on all 4 extremities [asymmetric] without fluctuance Neuro: alert and oriented x3, no focal findings Psych: appropriate affect Objective Data Active Medications Acetaminophen (Acetaminophen 325 Mg Tablet) 650 mg PO Q6H PRN PRN Reason: Pain, Mild (Pain Scale 1-3) Benzonatate (Benzonatate 100 Mg Capsule) 100 mg PO TID PRN PRN Reason: Cough Docusate Sodium (Docusate Sodium 100 Mg Capsule) 100 mg PO DAILY PRN PRN Reason: Constipation Enoxaparin Sodium (Enoxaparin Sodium 40 Mg/0.4 Ml Syringe) 40 mg SUBCUT Q24H [facility] Last Admin: 09/12/23 20:14 Dose: 40 mg Documented By: ANNA MARIE Piperacillin Sod/Tazobactam (Sod 3.375 gm/ Sodium Chloride) 50 mls @ 100 mls/hr IV Q6H [facility] Last Infusion: 09/13/23 05:39 Dose: Infused Documented By: COTEMA Vancomycin HCl 1,250 mg/ (Sodium Chloride) 250 mls @ 166.667 mls/hr IV Q12H [facility] Last Infusion: 09/13/23 07:05 Dose: Infused Documented By: DOC Melatonin (Melatonin 3 Mg Tablet) 6 mg PO BEDTIME PRN PRN Reason: Insomnia Morphine Sulfate (Morphine Sulfate 4 Mg/Ml Cartridge) 4 mg IVPUSH Q4H PRN; Protocol PRN Reason: Pain, Severe (Pain Scale 7-10) Last Admin: 09/13/23 08:01 Dose: 4 mg Documented By: DOC Ondansetron HCl (Ondansetron Hcl 4 Mg/2 Ml Vial) 4 mg IVPUSH Q8H PRN PRN Reason: Nausea and Vomiting Pharmacy Consult (Consult Rx Vancomycin Dosing) 1 each MISCELLANE DAILY PRN PRN Reason: Consult order Sodium Chloride (0.9 % Sodium Chloride Flush 3 Ml Syringe) 3 ml IVFLUSH QSHIFT [facility] Last Admin: 09/13/23 08:07 Dose: 3 ml Documented By: DOC Labs 09/13/23 05:38 09/13/23 05:38 Labs: Laboratory Results - last 24 hr 09/12/23 09/12/23 09/12/23 16:23 16:24 21:19 MCV 84.6 MCH 28.5 MCHC 33.7 RDW 13.6 Plt Count 248 MPV 9.0 L Immature Gran % (Auto) 0.8 H Neut % (Auto) 76.3 H Lymph % (Auto) 16.3 L [place] % (Auto) 6.5 Eos % (Auto) 0.0 Baso % (Auto) 0.1 Lymph # (Auto) 2.7 [place] # (Auto) 1.1 Eos # (Auto) 0.0 Baso # (Auto) 0.0 Abs Immat Gran (auto) 0.13 H Absolute Neuts (auto) 12.5 H Absolute Nucleated RBC 0.000 Nucleated RBC % (auto) 0.0 Absolute Retic Percent Retic Immature Retic Fraction Retic Hgb Equivalent Anion Gap 13 Estim Creat Clear Calc 106.7 Estimated GFR > 60 Random Glucose 109 Lactic Acid 0.6 Calcium 8.9 Magnesium 1.8 Iron TIBC % Saturation Unsat Iron Binding Ferritin Total Bilirubin 0.6 AST 17 ALT 10 Alkaline Phosphatase 92 Lactate Dehydrogenase Total Protein 8.1 H Albumin 3.5 Beta HCG, Quant < 2 Hepatitis A IgM Ab Nonreactive Hep Bs Antigen Negative Hep Bs Antibody REACTIVE Hep B Core Total Ab Nonreactive Hepatitis C Ab (EIA) Reactive H HIV 1&2 Ab/P24 Ag 4thGn Nonreactive Influenza Type A (PCR) NEGATIVE Influenza Type B (PCR) NEGATIVE RSV RNA Qual (PCR) NEGATIVE SARS-CoV-2 RNA (RT-PCR) NEGATIVE 09/13/23 05:38 MCV 87.1 MCH 28.7 MCHC 33.0 RDW 13.9 Plt Count 237 MPV 9.9 Immature Gran % (Auto) Neut % (Auto) Lymph % (Auto) [place] % (Auto) Eos % (Auto) Baso % (Auto) Lymph # (Auto) [place] # (Auto) Eos # (Auto) Baso # (Auto) Abs Immat Gran (auto) Absolute Neuts (auto) Absolute Nucleated RBC 0.000 Nucleated RBC % (auto) 0.0 Absolute Retic 0.052 Percent Retic 1.5 Immature Retic Fraction 19.8 H Retic Hgb Equivalent 31.2 Anion Gap 9 L Estim Creat Clear Calc 105.3 Estimated GFR > 60 Random Glucose 119 H Lactic Acid Calcium 8.5 Magnesium Iron 15 L TIBC 227 L % Saturation 7 L Unsat Iron Binding 212 Ferritin 99 Total Bilirubin AST ALT Alkaline Phosphatase Lactate Dehydrogenase 213 Total Protein Albumin Beta HCG, Quant Hepatitis A IgM Ab Hep Bs Antigen Hep Bs Antibody Hep B Core Total Ab Hepatitis C Ab (EIA) HIV 1&2 Ab/P24 Ag 4thGn Influenza Type A (PCR) Influenza Type B (PCR) RSV RNA Qual (PCR) SARS-CoV-2 RNA (RT-PCR) Assessment and Plan (1) Cellulitis: Status: Acute Plan d2 33yo F with injection polysubstance abuse, untreated HCV presenting with redness of extremities, found to be septic sepsis due to cellulitis due to IDU - vancomycin + pip/tory 09/11- - follow BCx - TTE given murmur injection polysubstance abuse - Addiction Medicine consult, methadone KELLY - replete Fe HCV - viral load pending VTE ppx - LMWH dispo - TBD In my clinical judgment, the patient requires continued inpatient hospitalization for the following reasons: IV ABX Total time managing care of this patient today: 35 minutes. Quality Stroke Does the patient have a stroke diagnosis?: No VTE Prior VTE?: No VTE Risk Level:: Medical - moderate - high VTE Device Contraindication: Treatment Not Indicated VTE Drug Contraindication: N/A - Med Ordered
--- NOTE | 2023-09-13 10:19 | MHC.CLN ---
NUTRITION CONSULT FOR SKIN AND WEIGHT LOSS. REVIEW OF EMR SHOWS NO SIGNIFICANT WEIGHT CHANGE X 10 MONTHS. SKIN WITH CELLULITIS. NO ADDITIONAL NUTRITION INTERVENTIONS AT THIS TIME.
[2023-09-13 10:26] VITALS: BP 119/58; PULSE 85; RESP 20; TEMP 36.7; O2SAT 96
[2023-09-13] MEDS: Ferrous Sulfate 324 MG TABLET.DR PO (10:32)
--- NOTE | 2023-09-13 11:21 | HO.WOUND ---
Wound Consult: Initial 33yr old? [place] [facility] [place] - See progress notes and H&P for detailed history.? Wound consult placed for Right Arm, right Leg and Left Hand wounds present on admission. Chart review reveals injects IVDU into arms and hands. ? Arrival to bedside patient was very sleepy easily arousable but quickly fell back asleep. Patient agreeable to assessment and photo documentation.? The patient denies open wounds other than the small scabbed areas throughout her arms and legs. The patient was assessed to be diaphoretic throughout all extremities - direct care nurse made aware. The right leg and right arm are noted for irregular pattern of erythema. There are various scabbed areas throughout her bilateral arms and legs. The scabbed areas are stable and appear to be in resurfacing phases - no topical interventions need at this time. Discussed with direct care nurse she is not aware of wounds that are concerning or open at this time. Direct care team to reconsult inpatient wound care nurse if wounds develop or evolve. No topical interventions needed at this time
--- NOTE | 2023-09-13 12:39 | MHC.CM.PN ---
Addendum entered by Toña Hopkins 09/13/23 14:02: PT AWAKE AND EATING LUCH, ABLE TO PARTICIPATE WITH ASSESSMENT. LIVES WITH A FRIEND. INDEPENDENT AT BASELINE. - THRIVE ASSESSMENT.HAS NO HCP BUT WILLING TO COMPLETE ONE. PCP JON RIVERA LACQUER MAKER DP: HOME, NO SERVICES ANTICIPATED PT HAS OWN RIDE HOME. CM WILL CONTINUE TO FOLLOW FOR ANY CHANGE TO DC PLAN/NEEDS Original Note: CM MET WITH PT AT BEDSIDE X 2, PT VERY LETHARGIC, DIFFICULT TO STAY AWAKE DURING ASSESSMENT. CM WILL RE-APPROACH WHEN ABLE TO PARTICIPATE.
--- NOTE | 2023-09-13 13:09 | PC.NURSE ---
Pt A&Ox4 drowsy but arousable to voice, pt is sleeping on and off throughout shift. Pt is cooperative with care and able to make needs known. Emily Suh at bedside today, see note for details, Methadone dose started 30mg, given per orders. Pt is on COWS scale, last scored 10. Pt endorsing pain this AM Morphine given at 0801 with good effect. IV abx given per orders. All needs met at this time.
--- NOTE | 2023-09-13 13:58 | PC.NURSE ---
MD Alexis made aware Critical care nurse educator at bedside to attempt peripheral IV insertion, patient refused at this time. Education provided to patient on potential risks for infection with femoral line, pt continues to refuse. Right Femoral line intact, line flushing positive blood return.
--- NOTE | 2023-09-13 14:22 | PC.NURSE ---
Visitor at bedside at 1422, visitor brought three donuts to the bedside checked by this RN.
[2023-09-13 15:03] VITALS: BP 123/58; PULSE 72; RESP 21; TEMP 36.1; O2SAT 96
[2023-09-13 16:00] VITALS: PULSE 91
[2023-09-13 16:31] LABS: Vancomycin Trough 6.4 mcg/mL (10.0-20.0)
--- NOTE | 2023-09-13 16:37 | HE.PHANOTE ---
RE: vanco Trough came back at 6.4 after two doses, increased to 1250mg Q8H with predicted AUC of 496 mg/L and trough of 12.9. Next level to be drawn 09/13 @1600
--- NOTE | 2023-09-13 17:03 | P.PNADD_ITS ---
Subjective Subjective Date of Service: 09/13/23 Reason For Visit: Cellulitis Interim History: Patient medically admitted with cellulitis secondary to injection drug use. Seen by window covering sales consultant earlier in the morning, note reviewed which included current substance use and reported withdrawal sx, including restlessness, body aches and appeared diaphoretic. Methadone 30mg ordered and administered with positive effect. When seen in follow up by this expert medical writer patient sleeping, difficult to keep awake, but reporing that methadoen was helpful. Floor RN also reporting improvement in sx. Review of Systems Acute medical concerns: Yes Medical Review of Systems: changed Mental Status Exam Mental Status Exam Level of Consciousness: Drowsy (sleeping) Diagnostics Vital Signs (24Hr): Vital Signs - 24 hr 09/12/23 17:52 09/12/23 18:22 09/12/23 18:33 Temperature 99.6 F 99.1 F Pulse Rate 94 89 88 Respiratory Rate 18 18 18 Blood Pressure 119/49 L 112/50 L 119/45 L Pulse Oximetry 98 98 97 Oxygen Delivery Method Room Air Room Air Room Air 09/12/23 20:28 09/12/23 21:30 09/12/23 22:50 Temperature 99.4 F 97.9 F Pulse Rate 77 84 Respiratory Rate 18 20 18 Blood Pressure 109/61 123/58 L Pulse Oximetry 96 97 Oxygen Delivery Method Room Air Room Air 09/13/23 03:12 09/13/23 07:37 09/13/23 10:26 Temperature 98.2 F 98.3 F 98.1 F Pulse Rate 107 H 100 85 Respiratory Rate 18 16 20 Blood Pressure 131/62 118/55 L 119/58 L Pulse Oximetry 95 94 96 Oxygen Delivery Method Room Air Room Air Room Air 09/13/23 15:03 Temperature 96.9 F Pulse Rate 72 Respiratory Rate 21 H Blood Pressure 123/58 L Pulse Oximetry 96 Oxygen Delivery Method Room Air BMI result Body Mass Index 31.5 Labs 09/13/23 05:38 09/13/23 05:38 Labs: Laboratory Results - last 48 hr 09/12/23 09/12/23 09/12/23 16:23 16:24 21:19 WBC 16.4 H RBC 3.89 L Hgb 11.1 L Hct 32.9 L MCV 84.6 MCH 28.5 MCHC 33.7 RDW 13.6 Plt Count 248 MPV 9.0 L Immature Gran % (Auto) 0.8 H Neut % (Auto) 76.3 H Lymph % (Auto) 16.3 L [place] % (Auto) 6.5 Eos % (Auto) 0.0 Baso % (Auto) 0.1 Lymph # (Auto) 2.7 [place] # (Auto) 1.1 Eos # (Auto) 0.0 Baso # (Auto) 0.0 Abs Immat Gran (auto) 0.13 H Absolute Neuts (auto) 12.5 H Absolute Nucleated RBC 0.000 Nucleated RBC % (auto) 0.0 Absolute Retic Percent Retic Immature Retic Fraction Retic Hgb Equivalent Sodium 134 L Potassium 3.9 Chloride 98 Carbon Dioxide 27 Anion Gap 13 BUN 15 Creatinine 0.83 Estim Creat Clear Calc 106.7 Estimated GFR > 60 Random Glucose 109 Lactic Acid 0.6 Calcium 8.9 Magnesium 1.8 Iron TIBC % Saturation Unsat Iron Binding Ferritin Total Bilirubin 0.6 AST 17 ALT 10 Alkaline Phosphatase 92 Lactate Dehydrogenase Total Protein 8.1 H Albumin 3.5 Beta HCG, Quant < 2 Vancomycin Trough Hepatitis A IgM Ab Nonreactive Hep Bs Antigen Negative Hep Bs Antibody REACTIVE Hep B Core Total Ab Nonreactive Hepatitis C Ab (EIA) Reactive H HIV 1&2 Ab/P24 Ag 4thGn Nonreactive Influenza Type A (PCR) NEGATIVE Influenza Type B (PCR) NEGATIVE RSV RNA Qual (PCR) NEGATIVE SARS-CoV-2 RNA (RT-PCR) NEGATIVE 09/13/23 09/13/23 05:38 16:07 WBC 12.3 H RBC 3.41 L Hgb 9.8 L Hct 29.7 L MCV 87.1 MCH 28.7 MCHC 33.0 RDW 13.9 Plt Count 237 MPV 9.9 Immature Gran % (Auto) Neut % (Auto) Lymph % (Auto) [place] % (Auto) Eos % (Auto) Baso % (Auto) Lymph # (Auto) [place] # (Auto) Eos # (Auto) Baso # (Auto) Abs Immat Gran (auto) Absolute Neuts (auto) Absolute Nucleated RBC 0.000 Nucleated RBC % (auto) 0.0 Absolute Retic 0.052 Percent Retic 1.5 Immature Retic Fraction 19.8 H Retic Hgb Equivalent 31.2 Sodium 137 Potassium 3.8 Chloride 105 Carbon Dioxide 27 Anion Gap 9 L BUN 12 Creatinine 0.83 Estim Creat Clear Calc 105.3 Estimated GFR > 60 Random Glucose 119 H Lactic Acid Calcium 8.5 Magnesium Iron 15 L TIBC 227 L % Saturation 7 L Unsat Iron Binding 212 Ferritin 99 Total Bilirubin AST ALT Alkaline Phosphatase Lactate Dehydrogenase 213 Total Protein Albumin Beta HCG, Quant Vancomycin Trough 6.4 L Hepatitis A IgM Ab Hep Bs Antigen Hep Bs Antibody Hep B Core Total Ab Hepatitis C Ab (EIA) HIV 1&2 Ab/P24 Ag 4thGn Influenza Type A (PCR) Influenza Type B (PCR) RSV RNA Qual (PCR) SARS-CoV-2 RNA (RT-PCR) Imaging Radiology Impressions: ITS Impressions Chest X-Ray 09/12/23 14:25 IMPRESSION: No acute abnormality. Venous Duplex 09/12/23 15:18 IMPRESSION: Unremarkable right extremity venous study. No DVT. Unremarkable right lower extremity venous study. No evidence of DVT. Incidental finding of a benign right groin lymph node. Venous Duplex 09/12/23 15:18 IMPRESSION: Unremarkable right extremity venous study. No DVT. Unremarkable right lower extremity venous study. No evidence of DVT. Incidental finding of a benign right groin lymph node. Medications Medications Current Medications Acetaminophen (Acetaminophen 325 Mg Tablet) 650 mg PO Q6H PRN PRN Reason: Pain, Mild (Pain Scale 1-3) Benzonatate (Benzonatate 100 Mg Capsule) 100 mg PO TID PRN PRN Reason: Cough Docusate Sodium (Docusate Sodium 100 Mg Capsule) 100 mg PO DAILY PRN PRN Reason: Constipation Enoxaparin Sodium (Enoxaparin Sodium 40 Mg/0.4 Ml Syringe) 40 mg SUBCUT Q24H [facility] Last Admin: 09/12/23 20:14 Dose: 40 mg Ferrous Sulfate (Ferrous Sulfate 324 Mg Tablet.) 324 mg PO DAILY [facility] Last Admin: 09/13/23 10:32 Dose: 324 mg Piperacillin Sod/Tazobactam (Sod 3.375 gm/ Sodium Chloride) 50 mls @ 100 mls/hr IV Q6H [facility] Last Admin: 09/13/23 16:47 Dose: 100 mls/hr Vancomycin HCl 1,250 mg/ (Sodium Chloride) 250 mls @ 166.667 mls/hr IV Q8H [facility] Melatonin (Melatonin 3 Mg Tablet) 6 mg PO BEDTIME PRN PRN Reason: Insomnia Methadone HCl (Methadone Hcl 20 Mg/2 Ml Oral.Conc) 30 mg PO DAILY [facility] Morphine Sulfate (Morphine Sulfate 4 Mg/Ml Cartridge) 4 mg IVPUSH Q4H PRN; Protocol PRN Reason: Pain, Severe (Pain Scale 7-10) Last Admin: 09/13/23 15:20 Dose: 4 mg Ondansetron HCl (Ondansetron Hcl 4 Mg/2 Ml Vial) 4 mg IVPUSH Q8H PRN PRN Reason: Nausea and Vomiting Pharmacy Consult (Consult Rx Vancomycin Dosing) 1 each MISCELLANE DAILY PRN PRN Reason: Consult order Sodium Chloride (0.9 % Sodium Chloride Flush 3 Ml Syringe) 3 ml IVFLUSH QSHIFT [facility] Last Admin: 09/13/23 15:17 Dose: 3 ml Allergies Allergies Allergy/AdvReac Type Severity Reaction Status Date / Time SEASONAL ALLERGIES Allergy Unknown ITCHY Uncoded 09/12/23 13:57 EYES/SNEEZING Assessment & Plan Assessment & Plan (1) Opioid use disorder: Status: Acute Code(s): F11.90 - Opioid use, unspecified, uncomplicated Assessment and Plan: * methadone 30mg QD ordered * continue to titrate dose if patient requesting it * window covering sales consultant to follow up over the wkend (2) Cellulitis: Status: Acute Code(s): L03.90 - Cellulitis, unspecified Assessment and Plan: * IV abx * morphine PRN Total time managing care of this patient today __20__ minutes.
[2023-09-13] MEDS: Enoxaparin Sodium 40 MG/0.4 ML SYRINGE SUBCUT (17:34)
[2023-09-13 19:20] VITALS: BP 115/56; PULSE 73; RESP 16; TEMP 36.4; O2SAT 98
[2023-09-14] VITALS (10 sets, daily range): BP systolic 100–124; BP diastolic 56–64; PULSE 63–86; RESP 16–98; TEMP 35.9–36.6; O2SAT 96–97
[2023-09-14] MEDS: Morphine Sulfate 4 MG/ML CARTRIDGE IVPUSH ×5 (00:41→22:24)
[2023-09-14] MEDS: vancomycin HCL 1,250 MG in 0.9 % Sodium Chloride 250 ML 166.67 MG IV ×3 (01:23→18:03)
[2023-09-14] MEDS: Piperacillin Sodium/Tazobactam 3.375 GM in 0.9 % Sodium Chloride 50 ML IV ×4 (05:11→22:49)
--- NOTE | 2023-09-14 06:27 | PC.NURSE ---
throughout the night pt was calm w/restless leg movement. pain 7-9/10, provided morphine by [facility]Mar. however, visitor came w/ security at 0000 without any notice. this nurse was concern about visitor; he has backpack on. I am not sure what's in there. this nurse spoke to automotive fleet supervisor and leave it door opened. visitor was angry with open door and punched the door and walked out. pt understood hospital environment and safety. will cont. monitor.
[2023-09-14 06:55] LABS: Hematocrit 29.2 % (37.0-47.0); Hemoglobin 9.5 g/dl (12.0-16.0); Mean Corpuscular HGB Conc 32.5 g/dl (31.0-35.0); Mean Corpuscular Hemoglobin 28.4 pg (27.0-33.0); Mean Corpuscular Volume 87.4 fL (80.0-98.0); Mean Platelet Volume 9.9 fL (9.4-12.3); Platelet Count 234 X10*3/uL (160-400); Red Blood Count 3.34 X10*6/uL (4.20-5.50); Red Cell Distribution Width 13.8 % (11.0-16.0); White Blood Count 9.8 X10*3/uL (4.8-10.8)
[2023-09-14 06:59] LABS: Anion Gap 9 (12-20); Blood Urea Nitrogen 10 mg/dL (9-16); Calcium 8.7 mg/dL (8.4-10.2); Carbon Dioxide 27 mmol/L (22-29); Chloride 107 mmol/L (96-108); Estimated Glomerular Filt Rate > 60; Glucose Random 101 mg/dL (60-115); Potassium 3.9 mmol/L (3.3-5.1); Sodium 139 mmol/L (135-145)
[2023-09-14 07:33] LABS: Folate 10.4 ng/mL (> or = 4.0); Vitamin B12 424 pg/mL (200-900)
[2023-09-14] MEDS: Ferrous Sulfate 324 MG TABLET.DR PO (09:00)
[2023-09-14] MEDS: 0.9 % Sodium Chloride Flush 3 ML SYRINGE IVFLUSH ×3 (09:00→23:27)
[2023-09-14] MEDS: methADONE HCl 20 MG/2 ML ORAL.CONC 30 MG PO (09:00)
--- NOTE | 2023-09-14 09:32 | HO.PM.IMPN ---
Subjective Subjective Date of Service: 09/14/23 Interval History: redness improved, no fever, cultures negative to date, no complaints Review of Systems Review of Systems: Yes all other systems are reviewed and are negative Physical Exam Vital Signs: Vital Signs: Last Vital Signs Temp 97.9 F 09/14/23 07:07 Pulse 69 09/14/23 07:07 Resp 16 09/14/23 09:16 BP 100/60 09/14/23 07:07 Pulse Ox 96 09/14/23 07:07 O2 Del Method Room Air 09/14/23 03:51 BMI result Body Mass Index 31.5 Gen: NAD HEENT: sclera anicteric, moist mucus membranes Neck: supple Lungs: clear to auscultation bilaterally Heart: regular rate and rhythm, systolic murmur along LLSB Abd: soft, non-tender, non-distended Ext: no edema, R femoral central line [placed 09/12/23] Skin: extensive track haywood, minimal residual erythema on extremities Neuro: alert and oriented x3, no focal findings Psych: appropriate affect Objective Data Active Medications Acetaminophen (Acetaminophen 325 Mg Tablet) 650 mg PO Q6H PRN PRN Reason: Pain, Mild (Pain Scale 1-3) Benzonatate (Benzonatate 100 Mg Capsule) 100 mg PO TID PRN PRN Reason: Cough Docusate Sodium (Docusate Sodium 100 Mg Capsule) 100 mg PO DAILY PRN PRN Reason: Constipation Enoxaparin Sodium (Enoxaparin Sodium 40 Mg/0.4 Ml Syringe) 40 mg SUBCUT Q24H ON LICENSE OF [facility] Last Admin: 09/13/23 17:34 Dose: 40 mg Documented By: DOC Ferrous Sulfate (Ferrous Sulfate 324 Mg Tablet.Dr) 324 mg PO DAILY ON LICENSE OF [facility] Last Admin: 09/14/23 09:00 Dose: 324 mg Documented By: CARMELA Piperacillin Sod/Tazobactam (Sod 3.375 gm/ Sodium Chloride) 50 mls @ 100 mls/hr IV Q6H ON LICENSE OF [facility] Last Infusion: 09/14/23 05:41 Dose: Infused Documented By: JOLIE Vancomycin HCl 1,250 mg/ (Sodium Chloride) 250 mls @ 166.667 mls/hr IV Q8H ON [facility] Last Admin: 09/14/23 09:10 Dose: 166.67 mls/hr Documented By: CARMELA Melatonin (Melatonin 3 Mg Tablet) 6 mg PO BEDTIME PRN PRN Reason: Insomnia Methadone HCl (Methadone Hcl 20 Mg/2 Ml Oral.Conc) 30 mg PO DAILY ON [facility] Last Admin: 09/14/23 09:00 Dose: 30 mg Documented By: CARMELA Morphine Sulfate (Morphine Sulfate 4 Mg/Ml Cartridge) 4 mg IVPUSH Q4H PRN; Protocol PRN Reason: Pain, Severe (Pain Scale 7-10) Last Admin: 09/14/23 09:16 Dose: 4 mg Documented By: CARMELA Ondansetron HCl (Ondansetron Hcl 4 Mg/2 Ml Vial) 4 mg IVPUSH Q8H PRN PRN Reason: Nausea and Vomiting Pharmacy Consult (Consult Rx Vancomycin Dosing) 1 each MISCELLANE DAILY PRN PRN Reason: Consult order Sodium Chloride (0.9 % Sodium Chloride Flush 3 Ml Syringe) 3 ml IVFLUSH QSHIFT ON [facility] Last Admin: 09/14/23 09:00 Dose: 3 ml Documented By: CARMELA Labs 09/14/23 06:22 09/14/23 06:22 Labs: Laboratory Results - last 24 hr 09/13/23 09/14/23 16:07 06:22 MCV 87.4 MCH 28.4 MCHC 32.5 RDW 13.8 Plt Count 234 MPV 9.9 Absolute Nucleated RBC 0.000 Nucleated RBC % (auto) 0.0 Anion Gap 9 L Estim Creat Clear Calc 115.0 Estimated GFR > 60 Random Glucose 101 Calcium 8.7 Vitamin B12 424 Folate 10.4 Vancomycin Trough 6.4 L Microbiology Microbiology Results: Microbiology 09/12/23 16:24 Blood Culture - Preliminary Blood - Venous No growth after 24 hours. 09/12/23 16:23 Blood Culture - Preliminary Blood - Venous No growth after 24 hours. Assessment and Plan (1) Cellulitis: Status: Acute Plan d3 33yo F with injection polysubstance abuse, untreated HCV presenting with redness of extremities, found to be septic sepsis due to cellulitis due to IDU - vancomycin + pip/tory 09/11- - follow BCx - TTE normal injection polysubstance abuse - Addiction Medicine consulted, methadone started KELLY - replete Fe HCV - viral load pending VTE ppx - LMWH dispo - likely home tomorrow In my clinical judgment, the patient requires continued inpatient hospitalization for the following reasons: IV ABX Total time managing care of this patient today: 35 minutes. Quality Stroke Does the patient have a stroke diagnosis?: No VTE Prior VTE?: No VTE Risk Level:: Medical - moderate - high VTE Device Contraindication: Treatment Not Indicated VTE Drug Contraindication: N/A - Med Ordered
--- NOTE | 2023-09-14 12:43 | MHC.RECOVRN ---
Met with pt in 369 to follow up and assess withdrawal. Pt laying in bed, asleep, wakes to voice. Pt reports methadone has helped, however, begins to feel withdrawal around 7pm. Reports symptoms include diaphoresis, restlessness, hot/cold flashes. Pt would like to continue methadone titration and connect to OTP upon discharge. Pt had been to [facility] in the past, however, would like to be connected to [facility] in [place]. Pt denies other questions or concerns for t/w. Discussed with provider. Pts referral sent to [facility]. Pt to present day after discharge with last dose letter.
[2023-09-14 16:34] LABS: Vancomycin Trough 16.8 mcg/mL (10.0-20.0)
[2023-09-14] MEDS: methADONE HCl 20 MG/2 ML ORAL.CONC 10 MG PO (20:04)
[2023-09-15] MEDS: Melatonin 3 MG TABLET 6 MG PO (01:45)
[2023-09-15] MEDS: vancomycin HCL 1,250 MG in 0.9 % Sodium Chloride 250 ML 166.67 MG IV ×2 (01:46→09:18)
[2023-09-15] MEDS: Morphine Sulfate 4 MG/ML CARTRIDGE IVPUSH (02:20)
[2023-09-15 03:32] VITALS: BP 127/67; PULSE 71; RESP 18; TEMP 36.4
[2023-09-15 04:00] VITALS: PULSE 71
[2023-09-15] MEDS: Piperacillin Sodium/Tazobactam 3.375 GM in 0.9 % Sodium Chloride 50 ML IV ×2 (05:11→10:49)
[2023-09-15 06:31] LABS: Creatinine Clr Calc Pharmacy 112.1; Estimated Glomerular Filt Rate > 60
[2023-09-15 07:42] VITALS: BP 113/70; PULSE 67; RESP 16; TEMP 36.2; O2SAT 96
[2023-09-15] MEDS: 0.9 % Sodium Chloride Flush 3 ML SYRINGE IVFLUSH (09:17)
[2023-09-15] MEDS: methADONE HCl 20 MG/2 ML ORAL.CONC 40 MG PO (09:18)
[2023-09-15] MEDS: Ferrous Sulfate 324 MG TABLET.DR PO (09:18)
--- NOTE | 2023-09-15 10:12 | PM.DS ---
DS: Providers Provider Date of Service: 09/15/23 Date of admission: 09/12/23 17:50 Date of discharge: 09/15/23 Primary care physician: Emily Manning NP Consults: 09/12/23 17:31 Addiction Medicine Routine Consulting Provider: Jitendra Hoff Reason for consultation: Polysubstance use disorder DS: Diagnosis Discharge Diagnosis (1) Cellulitis: Status: Acute (2) Opioid use disorder: Status: Acute (3) Hepatitis C antibody positive in blood: Status: Acute (4) Sepsis: Status: Acute (5) Iron deficiency anemia: Status: Acute DS: Summary Hospital Course Hospital Course: From the history and physical by the admitting hospitalist, HOLLY Kumar, 09/12/23: Pt is a 33-year-old female with a PMH significant for?polysubstance use disorder, IVDU, untreated hepatitis-C, and fatty liver disease who presents to the ED for evaluation of worsening right upper and lower?extremity redness. Patient states last night she noticed diffuse redness and warmth to upper and lower extremities, and experienced subjective fever and chills. Patient thought she had abscesses at injection sites. Presented earlier today as redness continued to spread and experienced pain especially in her legs, which she states made it difficult to walk. Reports she has lately been using heroin, crack, and cocaine, both through IV injection and also smoking. Has been injecting into her legs, arms, hands, and neck. Last used 1 hour prior to arrival to the ED. No chest pain/pressure, palpitations. Denies shortness of breath. No nausea, vomiting, abdominal pain. In the ED pt was tachycardic up to 125 and had elevated temperature up to 100.3. Labs were significant for leukocytosis of 16.4 otherwise grossly unremarkable. Stable H&H. No significant electrolyte abnormalities. Renal and hepatic function WNL. Lactic acid WNL at 0.6. Tested positive for opiates, fentanyl, and cocaine. Tested negative for influenza, COVID, RSV. CXR showed no acute abnormality. Venous duplex ultrasound of right upper and lower extremity negative for DVT. Did find incidental benign right groin lymph node. Pt was treated with acetaminophen, vanc and Zosyn, and IVF. Pt will be admitted to the hospital for treatment further evaluation of right upper and lower extremity cellulitis with sepsis. 33yo F with injection polysubstance abuse, untreated HCV presenting with redness of extremities, found to be septic and admitted to the medical-surgical floor. Treated with vancomycin and piperacillin-tazobactam for 3 days. Blood cultures negative. Echocardiogram done because of heart murmur; completely normal. Addiction Medicine consulted and she was started on methadone 30 mg/d, titrated up to 50 mg/d on 09/15/23. Started on iron for anemia. Discharged on 5 days of doxycycline and amoxicillin-clavulanate. Referred to [facility] for methadone maintenance therapy to start 09/16/23. HCV viral load sent on 09/14/23 and pending at the time of discharge. Status at Discharge Functional status at discharge: independent ambulation Time Attestation Discharge Coordination Time (in mins): 35 Quality: Safe Use of Opioids Does Pt have an Active Cancer Diagnosis on the Problem List?: No Quality: Stroke Does the patient have a stroke diagnosis?: No Physical Exam Vital Signs: Vital Signs: Last Vital Signs Temp 97.2 F 09/15/23 07:42 Pulse 67 09/15/23 07:42 Resp 16 09/15/23 07:42 BP 113/70 09/15/23 07:42 Pulse Ox 96 09/15/23 07:42 O2 Del Method Room Air 09/15/23 07:42 BMI result Body Mass Index 31.5 Gen: in no acute distress HEENT: sclera anicteric, moist mucus membranes Neck: supple Lungs: clear to auscultation bilaterally Heart: regular rate and rhythm, 2/6 systolic flow murmur along LSB Abd: soft, non-tender, non-distended Ext: no edema Skin: erythema without fluctuance on R lower leg, extensive needle track haywood/scars Neuro: alert and oriented x3, no focal findings Psych: appropriate affect DS: Data Data Completed and Pending Completed studies during hospitalization [Text1]: Laboratory Results WBC 9.8 X10*3/uL (4.8-10.8) 09/14/23 06:22 RBC 3.34 X10*6/uL (4.20-5.50) L 09/14/23 06:22 Hgb 9.5 g/dl (12.0-16.0) L 09/14/23 06:22 Hct 29.2 % (37.0-47.0) L 09/14/23 06:22 MCV 87.4 fL (80.0-98.0) 09/14/23 06:22 MCH 28.4 pg (27.0-33.0) 09/14/23 06:22 MCHC 32.5 g/dl (31.0-35.0) 09/14/23 06:22 RDW 13.8 % (11.0-16.0) 09/14/23 06:22 Plt Count 234 X10*3/uL (160-400) 09/14/23 06:22 MPV 9.9 fL (9.4-12.3) 09/14/23 06:22 Immature Gran % (Auto) 0.8 % (0.0-0.4) H 09/12/23 16:23 Neut % (Auto) 76.3 % (45-73) H 09/12/23 16:23 Lymph % (Auto) 16.3 % (20-40) L 09/12/23 16:23 [place] % (Auto) 6.5 % (2-11) 09/12/23 16:23 Eos % (Auto) 0.0 % (0-4) 09/12/23 16:23 Baso % (Auto) 0.1 % (0-2) 09/12/23 16:23 Lymph # (Auto) 2.7 X10*3/uL (1.2-4.9) 09/12/23 16:23 [place] # (Auto) 1.1 X10*3/uL (0.1-1.2) 09/12/23 16:23 Eos # (Auto) 0.0 X10*3/uL (0.0-0.4) 09/12/23 16:23 Baso # (Auto) 0.0 X10*3/uL (0.0-0.2) 09/12/23 16:23 Abs Immat Gran (auto) 0.13 X10*3/uL (0.00-0.03) H 09/12/23 16:23 Absolute Neuts (auto) 12.5 x10*3/uL (2.0-8.3) H 09/12/23 16:23 Absolute Nucleated RBC 0.000 X10*3/uL (0.0-0.012) 09/14/23 06:22 Nucleated RBC % (auto) 0.0 /100WBC (0.0-0.2) 09/14/23 06:22 Absolute Retic 0.052 X10*6/uL (0.026-0.095) 09/13/23 05:38 Percent Retic 1.5 % (0.5-1.8) 09/13/23 05:38 Immature Retic Fraction 19.8 % (3.0-15.9) H 09/13/23 05:38 Retic Hgb Equivalent 31.2 pg (30.0-35.0) 09/13/23 05:38 Hold Purple Top SEE NOTE 09/15/23 05:57 Sodium 139 mmol/L (135-145) 09/14/23 06:22 Potassium 3.9 mmol/L (3.3-5.1) 09/14/23 06:22 Chloride 107 mmol/L (96-108) 09/14/23 06:22 Carbon Dioxide 27 mmol/L (22-29) 09/14/23 06:22 Anion Gap 9 (12-20) L 09/14/23 06:22 BUN 10 mg/dL (9-16) 09/14/23 06:22 Creatinine 0.78 mg/dL (0.5-1.4) 09/15/23 05:57 Estim Creat Clear Calc 112.1 09/15/23 05:57 Estimated GFR > 60 09/15/23 05:57 Random Glucose 101 mg/dL (60-115) 09/14/23 06:22 Lactic Acid 0.6 mmol/L (0.5-2.0) 09/12/23 16:23 Calcium 8.7 mg/dL (8.4-10.2) 09/14/23 06:22 Magnesium 1.8 mg/dL (1.6-2.6) 09/12/23 16:23 Iron 15 mcg/dL (30-160) L 09/13/23 05:38 TIBC 227 mcg/dL (228-428) L 09/13/23 05:38 % Saturation 7 % (15-50) L 09/13/23 05:38 Unsat Iron Binding 212 ug/dL 09/13/23 05:38 Ferritin 99 ng/mL (10-122) 09/13/23 05:38 Total Bilirubin 0.6 mg/dL (0.0-1.0) 09/12/23 16:23 AST 17 U/L (5-31) 09/12/23 16:23 ALT 10 U/L (0-31) 09/12/23 16:23 Alkaline Phosphatase 92 U/L (39-117) 09/12/23 16:23 Lactate Dehydrogenase 213 U/L (122-220) 09/13/23 05:38 Total Protein 8.1 g/dL (6.5-8.0) H 09/12/23 16:23 Albumin 3.5 g/dL (3.5-5.0) 09/12/23 16:23 Vitamin B12 424 pg/mL (200-900) 09/14/23 06:22 Folate 10.4 ng/mL (> or = 4.0) 09/14/23 06:22 Beta HCG, Quant < 2 mIU/mL 09/12/23 16:23 Vancomycin Trough 16.8 mcg/mL (10.0-20.0) 09/14/23 16:18 Hepatitis A IgM Ab Nonreactive (Nonreactive) 09/12/23 21:19 Hep Bs Antigen Negative (Negative) 09/12/23 21:19 Hep Bs Antibody REACTIVE (Nonreactive) 09/12/23 21:19 Hep B Core Total Ab Nonreactive (Nonreactive) 09/12/23 21:19 Hepatitis C Ab (EIA) Reactive (Nonreactive) H 09/12/23 21:19 HIV 1&2 Ab/P24 Ag 4thGn Nonreactive (Nonreactive) 09/12/23 21:19 Influenza Type A (PCR) NEGATIVE (Negative) 09/12/23 16:24 Influenza Type B (PCR) NEGATIVE (Negative) 09/12/23 16:24 RSV RNA Qual (PCR) NEGATIVE (Negative) 09/12/23 16:24 SARS-CoV-2 RNA (RT-PCR) NEGATIVE (Negative) 09/12/23 16:24 Impressions Chest X-Ray 09/12/23 14:25 IMPRESSION: No acute abnormality. Venous Duplex 09/12/23 15:18 IMPRESSION: Unremarkable right extremity venous study. No DVT. Unremarkable right lower extremity venous study. No evidence of DVT. Incidental finding of a benign right groin lymph node. Discharge Plan Discharge Anticipated Discharge Date/Time: 09/15/23 10:08 Patient Disposition: Home, Self-Care Discharge Diagnosis: Cellulitis Opioid use disorder Iron deficiency anemia Hepatitis C antibody positive Referrals: Emily Manning NP [Primary Care Provider] - 1 Week Discharge Medications: New methadone 10 mg tablet 50 mg PO DAILY Qty: 1 0RF Rx Instructions: Partial Fill upon patient request. doxycycline monohydrate 100 mg tablet 100 mg PO BID Qty: 10 0RF amoxicillin-pot clavulanate 875-125 mg tablet 1 tab PO BID Qty: 10 0RF ferrous sulfate 324 mg (65 mg iron) Tablet,Delayed Release (Dr/Ec) 324 mg PO DAILY Qty: 30 0RF Discharge Orders: Discharge Order (Routine); Ordered 09/15/23 Ordered By: Miguelito Alexis Diet: Advance to usual diet Activity on Discharge: As tolerated Stand Alone Forms: Patient Portal Discharge page Care Plan Goals: Cure of infection Abstinence from drug abuse Health Concerns: Cellulitis Opioid use disorder Iron deficiency anemia Hepatitis C antibody positive Plan of Treatment: take doxycycline monohydrate 100 mg twice daily PLUS amoxicillin-clavulanate 100 mg twice daily for 5 days follow up with [facility] on Saturday09/16/23 for methadone [suggested dosing of 50 mg daily] Take iron 324 mg daily Please follow up with your primary care doctor within 1 week. Return to the hospital if you experience recurrent or worsening symptoms. Pending lab tests [follow up with PCP]: hepatitis C viral load from 09/14/23 Assessment: See Discharge Summary.
[2023-09-15] MEDS: methADONE HCl 20 MG/2 ML ORAL.CONC 10 MG PO (10:49)
[2023-09-15 12:00] VITALS: PULSE 66
--- NOTE | 2023-09-15 13:05 | MHC.RECOVRN ---
Met with pt to follow up while pt preparing for dc. Pt is interested in continuing [facility] treatment and going to [facility]. T/w reached out to Arpita Ceron from [facility], was informed there is a waitlist but to send pts referral. Pt agreeable for referral to be sent and to follow up from home. Pt aware she will present to [facility] tomorrow morning with last dose letter. Pt denies other questions or concerns. Pt provided with resources as well as t/w contact information if needed. Discussed with pts RN. Referral sent to [facility].
--- NOTE | 2023-09-15 15:40 | MHC.CM.PN ---
PT WILL DC HOME TODAY WITH RECOVERY TEAM REFERRALS PT TO [facility]
[2023-09-16 13:49] LABS: HepC Viral Load 101 IU/mL (NOT DETECTED)
== END 2023-09-15 14:46 | disposition home or self-care (01) | DRG 720 ==
LOC: HO.ED 17:11 → HO.EDOVER 17:59 → HO.S3 19:43
PROVIDERS: Physician Assistant; Admitting Provider Student in an Organized Health Care Education/Training Program; Emergency Provider Emergency Medicine Emergency Medical Services; PCP Nurse Practitioner Family; Visit Provider Family Medicine
DX: A41.9 Sepsis, unspecified organism (principal); K76.0 Fatty (change of) liver, not elsewhere classified; L03.115 Cellulitis of right lower limb; F11.20 Opioid dependence, uncomplicated; D50.9 Iron deficiency anemia, unspecified; B19.20 Unspecified viral hepatitis C without hepatic coma; F19.10 Other psychoactive substance abuse, uncomplicated; Z20.822 Contact with and (suspected) exposure to COVID-19; Z79.899 Other long term (current) drug therapy
CPT/HCPCS: 0241U; 36415; 71045; 80048; 80053; 80202; 82565; 82607; 82728; 82746; 83540; 83605; 83615; 83735; 84702; 85025; 85027; 85045; 86704; 86706; 86709; 86803; 87040; 87340; 87389; 87522; 93306; 93971; 99285; J1650; J2270; J2543; J3370; J3371

== ENCOUNTER 2023-09-12 17:50 | Outpatient (BNV) | payer OTHER, SELFPAY | END 2023-09-13 07:00 | PROVIDERS: Admitting Provider Student in an Organized Health Care Education/Training Program; Emergency Provider Emergency Medicine Emergency Medical Services; PCP Nurse Practitioner Family; Visit Provider Internal Medicine Cardiovascular Disease | DX: I36.1 Nonrheumatic tricuspid (valve) insufficiency (principal); R01.1 Cardiac murmur, unspecified | CPT/HCPCS: 93306 ==

== ENCOUNTER → 2023-09-12 17:50 | Outpatient (BNV) | payer OTHER, SELFPAY | PROVIDERS: Admitting Provider Student in an Organized Health Care Education/Training Program; Emergency Provider Emergency Medicine Emergency Medical Services; PCP Nurse Practitioner Family; Visit Provider Nurse Practitioner Psychiatric/Mental Health | DX: F11.90 Opioid use, unspecified, uncomplicated (principal); L03.90 Cellulitis, unspecified | CPT/HCPCS: 99232; G2213 ==

== ENCOUNTER → 2023-09-12 17:50 | Outpatient (BNV) | payer OTHER, SELFPAY | PROVIDERS: Admitting Provider Student in an Organized Health Care Education/Training Program; Emergency Provider Emergency Medicine Emergency Medical Services; PCP Nurse Practitioner Family; Visit Provider Student in an Organized Health Care Education/Training Program | DX: A41.9 Sepsis, unspecified organism (principal); L03.90 Cellulitis, unspecified; F19.10 Other psychoactive substance abuse, uncomplicated | CPT/HCPCS: 99223; 99232; 99239 ==

== ENCOUNTER 2023-10-31 12:33 | Emergency (ER) | payer OTHER, SELFPAY | END 2023-10-31 16:01 | disposition left against medical advice (07) | LOC: HO.ED 15:59 | PROVIDERS: Emergency Provider Emergency Medicine; PCP Nurse Practitioner Family | DX: L02.91 Cutaneous abscess, unspecified (principal) ==

== ENCOUNTER 2024-07-30 02:24 | Emergency (ER) | payer OTHER, SELFPAY ==
[2024-07-30 02:40] VITALS: BP 92/72; PULSE 94; RESP 16; TEMP 37; O2SAT 98; BMI 26.8
[2024-07-30 03:30] LABS: Appearance Urine Cloudy; Color Urine Yellow; Glucose Urine UA Negative (Negative); Leukocyte Esterase Urine Moderate (2+) (Negative); Nitrite Urine Positive (Negative); Specific Gravity - Urine 1.025 (1.005-1.025); UMIC TRIGGER UACC YES; Urine Blood Large (3+) (Negative); Urine Ketones Trace mg/dL (Negative); Urine Protein Trace mg/dL (Neg-Trace)
[2024-07-30 03:33] LABS: UPreg QC Valid YES; Urine Pregnancy NEGATIVE (NEGATIVE)
[2024-07-30 03:35] LABS: Bacteria Urine 4+ (None Seen); Hyaline Casts Urine 0-2 /LPF (0-2); UACC Culture Trigger YES
[2024-07-30 04:33] LABS: MANUAL DIFF FLAG NO
[2024-07-30 04:34] LABS: Basophils Percent Auto 0.4 % (0-2); Eosinophils Percent Auto 0.2 % (0-4); Hematocrit 35.3 % (37.0-47.0); Hemoglobin 12.2 g/dl (12.0-16.0); Imm Gran Abs Auto 0.02 X10*3/uL (0.00-0.03); Imm Gran Pct Auto 0.2 % (0.0-0.4); Lymphocytes Absolute Auto 2.8 X10*3/uL (1.2-4.9); Lymphocytes Percent Auto 34.5 % (20-40); Mean Corpuscular HGB Conc 34.6 g/dl (31.0-35.0); Mean Corpuscular Hemoglobin 30.4 pg (27.0-33.0); Mean Platelet Volume 9.1 fL (9.4-12.3); Monocytes Absolute Auto 0.4 X10*3/uL (0.1-1.2); Monocytes Percent Auto 4.9 % (2-11); Neutrophils Absolute Auto 4.8 x10*3/uL (2.0-8.3); Neutrophils Percent Auto 59.8 % (45-73); Platelet Count 231 X10*3/uL (160-400); Red Blood Count 4.01 X10*6/uL (4.20-5.50); Red Cell Distribution Width 12.8 % (11.0-16.0)
[2024-07-30 04:56] LABS: Anion Gap 12 (12-20); Blood Urea Nitrogen 25 mg/dL (9-16); Calcium 8.2 mg/dL (8.4-10.2); Carbon Dioxide 24 mmol/L (22-29); Chloride 110 mmol/L (96-108); Creatinine Clr Calc Pharmacy 102.6; Estimated Glomerular Filt Rate > 60; Glucose Random 120 mg/dL (60-115); HCG Quantitative < 2 mIU/mL; Potassium 3.5 mmol/L (3.3-5.1); Sodium 142 mmol/L (135-145)
--- NOTE | 2024-07-30 05:24 | ED_ITS ---
HPI - Female Genitourinary General Chief complaint: Urogenital-Female Stated complaint: miscarriage? clots Time Seen by Provider: 07/30/24 05:24 History of Present Illness ED Provider: Concepcion MAR Narrative: The patient is a 34-year-old female who comes to the emergency room because she has been having vaginal bleeding for 2 days and abdominal cramping for 3 days. She says that the abdominal bleeding is heavier than a usual period And that she passed something that she thought might be tissue. The patient says that she has a history of irregular menses but recently her menses has been somewhat more regular than usual. She says that she expected to have menses 2 weeks ago but did not and therefore was concerned that she might have been and that her current bleeding might have been a spontaneous miscarriage. She has had no urinary discomfort, urgency, or frequency. No fever, sweats, chills. No nausea or vomiting. Related Data Previous Rx's ?Medication ?Instructions ?Recorded amoxicillin 875 mg-potassium 1 tab PO BID #10 tabs 09/15/23 clavulanate 125 mg tablet doxycycline monohydrate 100 mg 100 mg PO BID #10 tabs 09/15/23 tablet ferrous sulfate 324 mg (65 mg 324 mg PO DAILY #30 tabs 09/15/23 iron) tablet,delayed release methadone 10 mg tablet 50 mg (5 x 10 mg) PO DAILY #1 tab 09/15/23 Allergies Allergy/AdvReac Type Severity Reaction Status Date / Time SEASONAL ALLERGIES Allergy Unknown ITCHY Uncoded 07/30/24 02:44 EYES/SNEEZING Review of Systems 2 Review of Systems: Yes all other systems are reviewed and are negative [facility] Past Medical History Medical History Fatty liver disease, nonalcoholic Hepatitis C IVDU (intravenous drug user) Surgical History (Updated 09/12/23 @ 16:38 by Quiana Irvin RN) History of delivery H/O dilation and curettage Social History Social History Household Members: Friend(s) Housing: Apartment Do you presently have visiting nurse or other home services: No Patient Tobacco Use Status: Never used Tobacco e-Cigarette/Vaping Use: Currently Using Second Hand Smoke Exposure: No Substance Use Type: Crack/Cocaine and Heroin Advance Directives: Yes Advance Directives on File: Yes Advance Directives Date on File: 09/16/23 Do you have a plan to hurt others: No Plan service: No Physical Exam 2 Vital Signs: Vital Signs: Last Vital Signs Temp 98.4 F 07/30/24 06:23 Pulse 78 07/30/24 06:23 Resp 17 07/30/24 06:23 BP 124/80 07/30/24 06:23 Pulse Ox 98 07/30/24 06:23 O2 Del Method Room Air 07/30/24 06:23 BMI result Body Mass Index 26.8 Const: Other: The patient is awake and alert. She does not appear obviously ill. HEENT: Other: The face is symmetrical. ?Mucous membranes moist. Eyes: General: appearance normal, both eyes and all related structures Neck: Neck: Yes full ROM Resp: Effort & Inspection: normal respiratory effort Auscultation: clear to auscultation bilaterally Cardio: Rate: regular rate Rhythm: regular rhythm Heart sounds: S1 normal heart sound present and S2 normal heart sound present GI: Other: Abdomen is soft and nontender Skin: Other: Skin is dry and unremarkable Neuro: Other: The patient is awake and alert with a normal mental status, normal cranial nerves, normal strength throughout, normal gait Extrem: Other: No peripheral edema Medications Administered Discontinued Medications Generic Name Dose Route Start Last Admin Trade Name Diandra PRN Reason Stop Dose Admin Ketorolac Tromethamine 30 mg 07/30/24 05:32 07/30/24 06:21 Ketorolac Tromethamine 30 Mg/Ml Vial IM 07/30/24 05:33 30 mg ONCE ONE Administration Medical Decision Making Medical Decision Making [facility] Narrative: The patient presents with pelvic cramping and vaginal bleeding. The patient was concerned they might have passed material yesterday. The patient's beta hCG is less than 2. I told the patient I thought it was extremely unlikely that there has been a recent given the undetectable beta hCG. I suspect this was more of a late period with possibly some worsening bleeding because of its lateness. The patient was given an injection of ketorolac for her discomfort and advised to follow up with Gynecology. Lab Data 07/30/24 04:30 07/30/24 04:30 Labs: Lab Results 07/30/24 07/30/24 Range/Units 03:23 04:30 WBC 8.0 (4.8-10.8) X10*3/uL RBC 4.01 L D (4.20-5.50) X10*6/uL Hgb 12.2 D (12.0-16.0) g/dl Hct 35.3 L D (37.0-47.0) % MCV 88.0 (80.0-98.0) fL MCH 30.4 (27.0-33.0) pg MCHC 34.6 (31.0-35.0) g/dl RDW 12.8 (11.0-16.0) % Plt Count 231 (160-400) X10*3/uL MPV 9.1 L (9.4-12.3) fL Immature Gran % (Auto) 0.2 (0.0-0.4) % Neut % (Auto) 59.8 (45-73) % Lymph % (Auto) 34.5 (20-40) % [place] % (Auto) 4.9 (2-11) % Eos % (Auto) 0.2 (0-4) % Baso % (Auto) 0.4 (0-2) % Lymph # (Auto) 2.8 (1.2-4.9) X10*3/uL [place] # (Auto) 0.4 (0.1-1.2) X10*3/uL Eos # (Auto) 0.0 (0.0-0.4) X10*3/uL Baso # (Auto) 0.0 (0.0-0.2) X10*3/uL Abs Immat Gran (auto) 0.02 (0.00-0.03) X10*3/uL Absolute Neuts (auto) 4.8 (2.0-8.3) x10*3/uL Absolute Nucleated RBC 0.000 (0.0-0.012) X10*3/uL Nucleated RBC % (auto) 0.0 (0.0-0.2) /100WBC Sodium 142 (135-145) mmol/L Potassium 3.5 (3.3-5.1) mmol/L Chloride 110 H (96-108) mmol/L Carbon Dioxide 24 (22-29) mmol/L Anion Gap 12 (12-20) BUN 25 H (9-16) mg/dL Creatinine 0.78 (0.5-1.4) mg/dL Estim Creat Clear Calc 102.6 Estimated GFR > 60 Random Glucose 120 H (60-115) mg/dL Calcium 8.2 L (8.4-10.2) mg/dL Beta HCG, Quant < 2 mIU/mL Urine Color Yellow Urine Appearance Cloudy Urine pH 6.0 (5.0-9.0) Ur Specific [place] 1.025 (1.005-1.025) Urine Protein Trace (Neg-Trace) mg/dL Urine Glucose (UA) Negative (Negative) mg/dL Urine Ketones Trace (Negative) mg/dL Urine Blood Large (3+) H (Negative) Urine Nitrite Positive H (Negative) Ur Leukocyte Esterase Moderate (2+) H (Negative) Urine RBC 11-20 H (0-2) /HPF Urine WBC 11-20 H (0-5) /HPF Ur Squamous Epith Cells 6-10 (0-2) /HPF Urine Bacteria 4+ (None Seen) Hyaline Casts 0-2 (0-2) /LPF Urine Test NEGATIVE (NEGATIVE) Discharge Plan Discharge Clinical Impression: Vaginal bleeding Patient Disposition: Home, Self-Care Additional Instructions: There is no evidence of a or a recent . I think it is likely that your symptoms are related to delayed period. You were given an injection of a medication called ketorolac which can be helpful for period cramping and also for menstrual bleeding. If you wish to follow up with a professor of religion you have been given the contact information for [facility] office. Also follow up with the [facility]. Return to the emergency room if significantly worse. Prescriptions: No Action methadone 10 mg tablet 50 mg PO DAILY Qty: 1 0RF Rx Instructions: Partial Fill upon patient request. doxycycline monohydrate 100 mg tablet 100 mg PO BID Qty: 10 0RF amoxicillin-pot clavulanate 875-125 mg tablet 1 tab PO BID Qty: 10 0RF ferrous sulfate 324 mg (65 mg iron) Tablet,Delayed Release (Dr/Ec) 324 mg PO DAILY Qty: 30 0RF Referrals: [facility] [Provider Group] (vaginal bleeding) Elisabeth Ross NP [Primary Care Provider] - (vaginal bleeding) Interventions: ED Discharge Assessment Last Done: 07/30/24 06:23 Discharge Date/Time: 07/30/24 06:24 Print Language: [place] Islander
[2024-07-30 06:18] VITALS: BP 124/80; PULSE 78; RESP 17; TEMP 36.9; O2SAT 98
[2024-07-30] MEDS: Ketorolac Tromethamine 30 MG/ML VIAL IM (06:21)
[2024-07-30 06:23] VITALS: BP 124/80; PULSE 78; RESP 17; TEMP 36.9; O2SAT 98
== END 2024-07-30 06:24 | disposition home or self-care (01) ==
PROVIDERS: Emergency Provider Emergency Medicine; PCP Nurse Practitioner Primary Care
DX: N93.9 Abnormal uterine and vaginal bleeding, unspecified (principal); D50.9 Iron deficiency anemia, unspecified; B19.20 Unspecified viral hepatitis C without hepatic coma; F11.20 Opioid dependence, uncomplicated; Z79.899 Other long term (current) drug therapy
CPT/HCPCS: 36415; 80048; 81001; 81025; 84702; 85025; 87086; 87088; 87186; 96372; 99283; 99284; J1885

== ENCOUNTER 2024-09-14 18:05 | Emergency (ER) | payer OTHER, SELFPAY ==
[2024-09-14 18:11] VITALS: BP 149/96; PULSE 86; RESP 20; TEMP 37; O2SAT 100; BMI 26.2
--- NOTE | 2024-09-14 18:11 | ED.GENADULT ---
HPI - General Adult General Chief complaint: Wound/Laceration Stated complaint: abscess on R leg Related Data Previous Rx's ?Medication ?Instructions ?Recorded amoxicillin 875 mg-potassium 1 tab PO BID #10 tabs 09/15/23 clavulanate 125 mg tablet doxycycline monohydrate 100 mg 100 mg PO BID #10 tabs 09/15/23 tablet ferrous sulfate 324 mg (65 mg 324 mg PO DAILY #30 tabs 09/15/23 iron) tablet,delayed release methadone 10 mg tablet 50 mg (5 x 10 mg) PO DAILY #1 tab 09/15/23 cefuroxime axetil 250 mg tablet 250 mg PO Q12H 7 days #14 tabs 08/03/24 Allergies Allergy/AdvReac Type Severity Reaction Status Date / Time SEASONAL ALLERGIES Allergy Unknown ITCHY Uncoded 09/14/24 18:15 EYES/SNEEZING PMFSH Past Medical History Medical History Fatty liver disease, nonalcoholic Hepatitis C IVDU (intravenous drug user) Surgical History (Updated 09/12/23 @ 16:38 by Quiana Irvin RN) History of delivery H/O dilation and curettage Social History Social History Household Members: Friend(s) Housing: Apartment Do you presently have visiting nurse or other home services: No Patient Tobacco Use Status: Never used Tobacco e-Cigarette/Vaping Use: Currently Using Second Hand Smoke Exposure: No Substance Use Type: Crack/Cocaine and Heroin Advance Directives: No Advance Directives Information Provided: No Advance Directives Date on File: 09/16/23 service: No Physical Exam ED Vital Signs: BMI result Body Mass Index 26.2 Course Course Course Narrative: This is a rapid medical exam performed by Adebayo Meza NP: Additional HPI, ROS, PE not included below will be deferred to primary provider. Patient is a 34 year old female presenting to the ED with complaint of abscess to right calf for the past week, fever initially, none in past few days. Spontaneously started draining 2 days ago. Reports injecting cocaine into the affected area. Denies calf pain. Plan: labs Discharge Plan Discharge Clinical Impression: Abscess Patient Disposition: Left W/O Completing Treatment Prescriptions: No Action methadone 10 mg tablet 50 mg PO DAILY Qty: 1 0RF Rx Instructions: Partial Fill upon patient request. doxycycline monohydrate 100 mg tablet 100 mg PO BID Qty: 10 0RF amoxicillin-pot clavulanate 875-125 mg tablet 1 tab PO BID Qty: 10 0RF ferrous sulfate 324 mg (65 mg iron) Tablet,Delayed Release (Dr/Ec) 324 mg PO DAILY Qty: 30 0RF cefuroxime axetil 250 mg tablet 250 mg PO Q12H 7 Days Qty: 14 0RF Discharge Date/Time: 09/15/24 00:48
== END 2024-09-15 00:48 | disposition left against medical advice (07) ==
LOC: HO.ED 09-15 00:47
PROVIDERS: Emergency Provider Emergency Medicine; PCP Pediatrics
DX: L02.415 Cutaneous abscess of right lower limb (principal); Z53.21 Procedure and treatment not carried out due to patient leaving prior to being seen by health care provider
CPT/HCPCS: 99281

== ENCOUNTER 2025-01-04 10:01 | Emergency (ER) | payer OTHER, SELFPAY ==
--- NOTE | ~2025-01-04 | CT_ITS ---
EXAMINATION: CT ANGIOGRAM CHEST CLINICAL INFORMATION: Left-sided pleuritic chest pain, IVDA. COMPARISON: None available. TECHNIQUE: Multiple axial images were obtained through the chest after the administration of 50 mL of Omnipaque 350 intravenous contrast. Extensive vascular post-processing including two-dimensional and three-dimensional reformatted images were created and reviewed on an independent workstation. This CT examination was performed using dose optimization techniques as appropriate, variously including the following: *Automated exposure control *Adjustment of mA and/or kV according to patient size (this includes techniques or standardized protocols for targeted exams where dose is matched to indication/reason for exam; i.e. extremities or head) *Use of iterative reconstruction technique FINDINGS: VASCULAR: Study quality is adequate. There is no evidence of pulmonary embolus. Normal caliber pulmonary arteries. Aorta is normal in caliber and course. No evidence of acute aortic syndrome. Heart size is normal. No pericardial effusion. No right heart strain, and no reflux of contrast into the IVC. Great vessels branch normally and are patent. LUNGS: There is patchy consolidative opacity in the lingular segment consistent with lingular pneumonia. The lungs are otherwise grossly clear with mild dependent atelectasis bilaterally. Mild mosaic attenuation is likely secondary to mild air trapping/partial expiratory state. There is a tiny left pleural effusion. There is no pleural enhancement. No loculation. There is no pneumothorax. The small airways appear normal. Central airways are patent. MEDIASTINUM: Thyroid demonstrates a macrocalcification in the left lobe. It is otherwise normal. There is a 1.0 cm short axis prevascular lymph node, presumably reactive. No additional lymphadenopathy. No masses. No esophageal abnormality. AXILLA/CHEST WALL: No masses or pathologic lymph nodes. IMAGED UPPER ABDOMEN: Normal. OSSEOUS STRUCTURES: No suspicious lytic or blastic bone lesion. No acute finding. Normal appearance. CT/CT angio chest PE protocol IMPRESSION: 1. Lingular consolidation consistent with pneumonia. Tiny left pleural effusion without pleural enhancement. 2. No evidence of pulmonary embolus. No evidence of acute aortic syndrome. 3. Borderline enlarged prevascular lymph node, presumably reactive. Electronically signed by: Aquiles Quintanilla MD 01/04/2025 03:48 PM EDT
[2025-01-04 10:11] VITALS: BP 119/68; BP 124/73; PULSE 82; PULSE 84; RESP 16; TEMP 37.7; O2SAT 97; O2SAT 98; BMI 26.2
[2025-01-04 10:17] VITALS: BP 130/65; PULSE 87; RESP 16; O2SAT 98
--- NOTE | 2025-01-04 10:44 | ED.GENADULT ---
HPI - General Adult General Chief complaint: General Medical Stated complaint: L RIB PAIN, COUGH, + COCAINE USE Time Seen by Provider: 01/04/25 10:43 Source: patient and EMS Mode of arrival: EMS Limitations: no limitations History of Present Illness ED Provider: Sharron Torres PA-C HPI narrative: 34 yo female with history of polysubstance use disorder, IVDA cocaine and fentanyl, hx untreated hepatits C who presents to the ER for evaluation of left sided lower rib pain that started 2 days ago. She reports the pain is worse with movement and deep breathing. No falls or trauma. She has been coughing a lot lately and has been bringing up phlegm but does not know the color. She last injected cocaine a few hours ago. She reuses and licks her needles. Denies history of bacteremia or endocarditis. She denies any difficulty breathing, fevers, chills, N/V/D, or abdominal pain. She is not on any medications. MD complaint: left sided pleuritic chest pain Onset (ago): day(s) (2) Location: chest Radiation: non-radiation Severity: moderate Severity scale (1-10): 7 Quality: sharp Pain Consistency: intermittent Relieving factors: rest Exacerbating factors: movement and other (deep breaths) Treatments prior to arrival: none Related Data Previous Rx's ?Medication ?Instructions ?Recorded amoxicillin 875 mg-potassium 1 tab PO BID #10 tabs 09/15/23 clavulanate 125 mg tablet doxycycline monohydrate 100 mg 100 mg PO BID #10 tabs 09/15/23 tablet ferrous sulfate 324 mg (65 mg 324 mg PO DAILY #30 tabs 09/15/23 iron) tablet,delayed release methadone 10 mg tablet 50 mg (5 x 10 mg) PO DAILY #1 tab 09/15/23 cefuroxime axetil 250 mg tablet 250 mg PO Q12H 7 days #14 tabs 08/03/24 amoxicillin 875 mg-potassium 1 tab PO BID #14 tabs 01/04/25 clavulanate 125 mg tablet doxycycline hyclate 100 mg tablet 100 mg PO BID #14 tabs 01/04/25 Allergies Allergy/AdvReac Type Severity Reaction Status Date / Time SEASONAL ALLERGIES Allergy Unknown ITCHY Uncoded 01/04/25 10:15 EYES/SNEEZING Review of Systems Review of Systems: Yes all other systems are reviewed and are negative PMFSH Past Medical History Medical History Fatty liver disease, nonalcoholic Hepatitis C IVDU (intravenous drug user) Surgical History (Updated 09/12/23 @ 16:38 by Quiana Irvin RN) History of delivery H/O dilation and curettage Social History Social History Household Members: Friend(s) Housing: Apartment Do you presently have visiting nurse or other home services: No Patient Tobacco Use Status: Never used Tobacco Smoked in Last 30 Days: Yes e-Cigarette/Vaping Use: Currently Using Second Hand Smoke Exposure: No Use of substances other than those prescribed or required for medical reasons: Yes Substance Use Type: Crack/Cocaine Advance Directives: Yes Advance Directives on File: Yes Advance Directives Date on File: 09/16/23 service: No Physical Exam ED Vital Signs: Vital Signs - 24 hr 01/04/25 10:11 01/04/25 10:17 01/04/25 12:00 Temperature 99.9 F Pulse Rate 84 87 84 Respiratory Rate 16 16 18 Blood Pressure 124/73 130/65 128/72 Pulse Oximetry 97 98 96 Oxygen Delivery Method Room Air Room Air 01/04/25 13:51 Temperature Pulse Rate 89 Respiratory Rate 16 Blood Pressure 128/62 Pulse Oximetry 100 Oxygen Delivery Method Room Air BMI result Body Mass Index 26.2 Appearance: Alert. Oriented X3. Appears under the influence of drugs, lethargic Head: normocephalic, atraumatic. Eyes: Pupils equal, round and reactive to light. ENT: Pharynx normal. No tonsillar swelling or exudate. Neck: Normal inspection. Neck supple. CVS: Normal heart rate and rhythm. Pulses normal. Respiratory: No respiratory distress. Breath sounds normal. Severe left lateral chest wall tenderness Abdomen: Soft and nontender. +BS x4 Skin: Skin warm and dry. Normal skin color. Normal skin turgor. No rashes. Extremities: No lower extremity edema. No joint swelling. track [place]wood on bilateral forearms and hands Neuro/psych: Oriented X 3. arouses to voice, nonfocal neuro exam, strength is equal and symmetrical throughout. CN II-XII intact. Normal speech and cognition. Course Reevaluation(s) Reevaluation #1: Physician observation started at 16:19. Patient placed in physician observation because patient is awaiting Recovery team evaluation. At the time observation was started patient's vital signs were stable. Patient is lethargic but arouses to voice and is oriented. Neuro exam is non-focal. CV: RRR and lungs are clear. Will continue to monitor. Time: 16:19 Reevaluation #2: Physician observation discontinued at this time. Patient seen by Recovery and she is now declining need for services. [facility] info provided and she will be referred to [facility] for 3 day follow up calls. Her VS remain stable. She does not require medical admission to the hospital at this time. she was given extensive counseling on diagnosis of PNA, concern for bacteremia and told that we may call her to come back if cultures come back positive. will d/c on doxy and augmentin. compliance encouarged. stable for d/c home. Time: 17:44 Medications Administered Discontinued Medications Generic Name Dose Route Start Last Admin Trade Name Freq PRN Reason Stop Dose Admin Hydromorphone HCl 1 mg 01/04/25 11:37 01/04/25 12:05 Hydromorphone Hcl 1 Mg/Ml Syringe IVPUSH 01/04/25 11:38 1 mg ONCE ONE Administration Protocol Cefepime HCl 2 gm in 50 mls @ 100 mls/hr 01/04/25 11:39 01/04/25 12:35 Maxipime IV 01/04/25 12:08 Infused ONCE ONE Infusion Lactated Ringer's 1,000 mls @ 999 mls/hr 01/04/25 11:45 01/04/25 13:00 Lr IV 01/04/25 12:45 Infused .Q1H1M JESI Infusion Vancomycin HCl 2,000 mg in 500 mls @ 250 mls/hr 01/04/25 11:45 01/04/25 14:06 Vancomycin/Ns IV 01/04/25 13:44 Infused ONCE ONE Infusion Iohexol 100 ml 01/04/25 15:27 01/04/25 15:27 Iohexol 350 Mg/Ml 100 Ml Infus..Btl IV 01/04/25 15:28 65 ml ONCE ONE Administration Procedures EJ/Peripheral Line Arm L: Time Out Performed: No Skin Cleansed in Sterile Fashion: Yes Size (gauge): 20 IV Secured and Dressing Applied: Yes Patient Tolerated Procedure: well and no complications Medical Decision Making Medical Decision Making [facility] Narrative: 34-year-old female with substance use disorder, actively injecting cocaine, history of untreated hepatitis-C who presents to the ER for evaluation of left-sided pleuritic chest pain that started a couple of days ago. On arrival to the ER she has temperature of 99.9 degrees and she is hemodynamically stable. She has left lateral rib tenderness and decreased breath sounds in the left base. She is not hypoxic. Difficult IV access, obtained with ultrasound guidance. Labs revealing for mild leukocytosis of 11.6. Elevated CRP and ESR. Concern for possible endocarditis/bacteremia/septic emboli. CTA ordered Patient covered broadly with vanco and cefepime. left chest pain treated with IV dilaudid with improvement. remains hemodynamically stable and afebrile. CTA without PE. +lingula PNA. She is not hypoxic. She does not meet sepsis criteria. VS remain stable. Unfortunately there is not a clear indication for admission at this time. She is interested in detox. Will place ED Recovery team consult and place in physician observation. Will start PO abx Differential Diagnosis Differential Diagnoses: The differential diagnosis associated with the presentation includes Septic emboli, bacteremia, endocarditis, lung abscess, pneumonia Admission/Observation Consideration of admission/observation: Escalation of care including admission/observation considered Lab Data [facility] Lab Attestation statement: I reviewed the patient's lab results. Mild anemia, leukocytosis, elevated inflammatory markers 01/04/25 11:55 01/04/25 11:55 Labs: Lab Results 01/04/25 01/04/25 01/04/25 Range/Units 11:30 11:54 11:55 WBC 11.6 H (4.8-10.8) X10*3/uL RBC 3.68 L (4.20-5.50) X10*6/uL Hgb 11.2 L (12.0-16.0) g/dl Hct 32.6 L (37.0-47.0) % MCV 88.6 (80.0-98.0) fL MCH 30.4 (27.0-33.0) pg MCHC 34.4 (31.0-35.0) g/dl RDW 13.0 (11.0-16.0) % Plt Count 190 (160-400) X10*3/uL MPV 9.4 (9.4-12.3) fL Immature Gran % (Auto) 0.4 (0.0-0.4) % Neut % (Auto) 67.6 (45-73) % Lymph % (Auto) 23.5 (20-40) % [place] % (Auto) 8.2 (2-11) % Eos % (Auto) 0.0 (0-4) % Baso % (Auto) 0.3 (0-2) % Lymph # (Auto) 2.7 (1.2-4.9) X10*3/uL [place] # (Auto) 1.0 (0.1-1.2) X10*3/uL Eos # (Auto) 0.0 (0.0-0.4) X10*3/uL Baso # (Auto) 0.0 (0.0-0.2) X10*3/uL Abs Immat Gran (auto) 0.05 H (0.00-0.03) X10*3/uL Absolute Neuts (auto) 7.9 (2.0-8.3) x10*3/uL Absolute Nucleated RBC 0.000 (0.0-0.012) X10*3/uL Nucleated RBC % (auto) 0.0 (0.0-0.2) /100WBC ESR 31 H (0-20) MM/HR Sodium 135 (135-145) mmol/L Potassium 4.1 (3.3-5.1) mmol/L Chloride 101 (96-108) mmol/L Carbon Dioxide 28 (22-29) mmol/L Anion Gap 10 L (12-20) BUN 19 H (9-16) mg/dL Creatinine 0.86 (0.5-1.4) mg/dL Estim Creat Clear Calc 95.5 Estimated GFR > 60 Random Glucose 103 (60-115) mg/dL Lactic Acid 0.8 (0.5-2.0) mmol/L Calcium 9.0 D (8.4-10.2) mg/dL Magnesium 2.0 (1.6-2.6) mg/dL Total Bilirubin 0.6 (0.0-1.0) mg/dL Direct Bilirubin 0.3 (0.0-0.5) mg/dL AST 39 H (5-31) U/L ALT 39 H (0-31) U/L Alkaline Phosphatase 53 (39-117) U/L Total Creatine Kinase 39 (26-140) U/L Troponin I High Sens < 2.7 (<3.5-17.0) ng/L C-Reactive Protein 4.07 H (< or = 0.50) mg/dL B-Natriuretic Peptide < 10 (<100) pg/mL Total Protein 7.3 (6.5-8.0) g/dL Albumin 3.9 (3.5-5.0) g/dL Procalcitonin 0.04 ng/mL Beta HCG, Quant < 2 mIU/mL Hold Red Top See Note See Note Ethyl Alcohol < 10 mg/dL Influenza Type A (PCR) NEGATIVE (Negative) Influenza Type B (PCR) NEGATIVE (Negative) RSV RNA Qual (PCR) NEGATIVE (Negative) SARS-CoV-2 RNA (RT-PCR) NEGATIVE (Negative) Independent Interpretation I performed an independent interpretation of an: EKG and CT Scan Interpretation: EKG with normal sinus rhythm, ventricular rate 81 beats per minute, normal AL interval, normal QTC, no ST segment elevation or depression CTA without PE, groudglass opacities in left base Radiology Impression Discussion of test interpretation with radiology: I have reviewed the radiologist's reading. Independent Historian Clinical information obtained from an independent historian. History obtained from or confirmed by: EMS External Record Review External record reviewed: Inpatient record, Prior outpatient labs and Prior outpatient radiology Prescription Management I considered prescription management with: Pain Medication and Antibiotic Chronic Conditions Patient?s care impacted by: Other (Polysubstance use disorder) Social Determinants Patient?s care significantly limited by Social Determinants of Health including: Problems related to primary support group and Other Social Determinant of Health Critical Care Time Critical Care Time Critical Care Time: Yes Total Critical Care Time: 44 Attestation: I have personally provided critical care time exclusive of time spent on separately billable procedures. Time includes review of lab data, radiology results, discussion with consultants, and monitoring for potential decompensation. Intervention performed as documented. Discharge Plan Discharge Clinical Impression: Pneumonia Qualifiers: Pneumonia type: due to unspecified organism Laterality: unspecified laterality Lung location: unspecified part of lung Qualified Code(s): J18.9 - Pneumonia, unspecified organism Patient Disposition: Home, Self-Care Instructions: Pneumonia (ED) Additional Instructions: Your CT scan showed pneumonia Take the prescribed antibiotics as directed, complete the entire course and do not miss any doses If you develop new or worsening symptoms call 911 or come back to the ER for further evaluation. If you decide you want to stop or cut down on how much you?re using, you can call or walk into our outpatient Addiction Treatment office: [facility] (M-F 9am-5p) [address] [place] [address], [address] [phone] You may have been provided with safer injection?items, please take time to take care of YOU and your health. Use new supplies whenever possible to lessen the chances of infections and other illnesses.?DO NOT REUSE OR LICK YOUR NEEDLES ?If you need more supplies, please go [facility],? [address] [place] [address] OR you can call or text to coordinate delivery of safer supplies. Prescriptions: New doxycycline hyclate 100 mg tablet 100 mg PO BID Qty: 14 0RF amoxicillin-pot clavulanate 875-125 mg tablet 1 tab PO BID Qty: 14 0RF No Action methadone 10 mg tablet 50 mg PO DAILY Qty: 1 0RF Rx Instructions: Partial Fill upon patient request. doxycycline monohydrate 100 mg tablet 100 mg PO BID Qty: 10 0RF amoxicillin-pot clavulanate 875-125 mg tablet 1 tab PO BID Qty: 10 0RF ferrous sulfate 324 mg (65 mg iron) Tablet,Delayed Release (Dr/Ec) 324 mg PO DAILY Qty: 30 0RF cefuroxime axetil 250 mg tablet 250 mg PO Q12H 7 Days Qty: 14 0RF Print Language: [place]er
--- NOTE | 2025-01-04 10:49 | ECG_ITS ---
Test Reason : LEFT SIDE CHEST PAIN Blood Pressure : */* mmHG Vent. Rate : 81 BPM Atrial Rate : 81 BPM P-R Int : 132 ms QRS Dur : 88 ms QT Int : 376 ms P-R-T Axes : 59 40 38 degrees QTcB Int : 436 ms Normal sinus rhythm Normal ECG No previous ECGs available Referred By: Reba Torres Electronically Signed By: Jayson Wan
[2025-01-04] MEDS: Lactated Ringers 1,000 ML 999 ML IV (11:58)
[2025-01-04 12:00] VITALS: BP 128/72; PULSE 84; RESP 18; O2SAT 96
[2025-01-04 12:01] LABS: MANUAL DIFF FLAG NO
[2025-01-04 12:03] LABS: Hematocrit 32.6 % (37.0-47.0); Hemoglobin 11.2 g/dl (12.0-16.0); Imm Gran Abs Auto 0.05 X10*3/uL (0.00-0.03); Imm Gran Pct Auto 0.4 % (0.0-0.4); Lymphocytes Absolute Auto 2.7 X10*3/uL (1.2-4.9); Mean Corpuscular HGB Conc 34.4 g/dl (31.0-35.0); Mean Corpuscular Hemoglobin 30.4 pg (27.0-33.0); Mean Corpuscular Volume 88.6 fL (80.0-98.0); NRBC Abs Auto 0.000 X10*3/uL (0.0-0.012); NRBC Pct Auto 0.0 /100WBC (0.0-0.2); Platelet Count 190 X10*3/uL (160-400); Red Blood Count 3.68 X10*6/uL (4.20-5.50); White Blood Count 11.6 X10*3/uL (4.8-10.8)
[2025-01-04] MEDS: cefEPime HCl/D5W 2 GM/50 ML PIGGYBACK IV (12:05)
[2025-01-04] MEDS: vancomycin/NS 2,000 MG/500 ML PLAST..BAG 250 MG IV (12:06)
[2025-01-04 12:19] LABS: Resp Syncy Virus RNA Qual PCR NEGATIVE (Negative); SARS COV2 PCR INHOUSE NEGATIVE (Negative)
[2025-01-04 12:23] LABS: B Type Natriuretic Peptide < 10 pg/mL (<100); Troponin-I High Sensitivity < 2.7 ng/L (<3.5-17.0)
[2025-01-04 12:26] LABS: Alanine Aminotransferase 39 U/L (0-31); Albumin Level 3.9 g/dL (3.5-5.0); Alkaline Phosphatase 53 U/L (39-117); Anion Gap 10 (12-20); Aspartate Amino Transferase 39 U/L (5-31); Blood Urea Nitrogen 19 mg/dL (9-16); Calcium 9.0 mg/dL (8.4-10.2); Carbon Dioxide 28 mmol/L (22-29); Chloride 101 mmol/L (96-108); Creatinine Clr Calc Pharmacy 95.5; Estimated Glomerular Filt Rate > 60; Magnesium 2.0 mg/dL (1.6-2.6); Potassium 4.1 mmol/L (3.3-5.1); Sodium 135 mmol/L (135-145); Total Protein 7.3 g/dL (6.5-8.0)
--- NOTE | 2025-01-04 12:36 | PC.NURSE ---
Pt is a 33-year-old female with a PMH significant for?polysubstance use disorder, IVDU, untreated hepatitis-C, and fatty liver disease who presents to the ED for evaluation for left sided rib pain. Patient admits to cocaine use prior to arrival. Patient alert but drowsy, arrousable to speech. Lungs clear bilat. Respirations even and non-labored. Abdomen soft, non-tender with positive bowel sounds. Multiple track haywood to bilat arms. Positive pedal pulses with no edema. Patient does not appears interested in rehab at this time.
[2025-01-04 12:44] LABS: Procalcitonin 0.04 ng/mL
[2025-01-04 13:51] VITALS: BP 128/62; PULSE 89; RESP 16; O2SAT 100
[2025-01-04] MEDS: iohexoL 350 MG/ML 100 ML INFUS..BTL IV (15:27)
[2025-01-04 17:55] VITALS: BP 116/88; PULSE 88; RESP 14; TEMP 37.7; O2SAT 99
[2025-01-04 18:34] VITALS: BP 116/88; PULSE 88; RESP 14; TEMP 37.7; O2SAT 99
== END 2025-01-04 18:35 | disposition home or self-care (01) ==
PROVIDERS: Physician Assistant; Emergency Provider Emergency Medicine; PCP Nurse Practitioner Family
DX: J18.9 Pneumonia, unspecified organism (principal); R05.9 Cough, unspecified; R07.81 Pleurodynia; Z03.818 Encounter for observation for suspected exposure to other biological agents ruled out; B19.20 Unspecified viral hepatitis C without hepatic coma; D50.9 Iron deficiency anemia, unspecified; F14.10 Cocaine abuse, uncomplicated; F11.20 Opioid dependence, uncomplicated; F17.210 Nicotine dependence, cigarettes, uncomplicated; Z79.899 Other long term (current) drug therapy
CPT/HCPCS: 36415; 71275; 80048; 80076; 80307; 82550; 83605; 83735; 83880; 84145; 84484; 84702; 85025; 85652; 86140; 87040; 87077; 87186; 87205; 87637; 93005; 96361; 96374; 96375; 99285; 99291; J0692; J1171; J3373; J7120; Q9967; S9485

== ENCOUNTER → 2025-01-04 10:49 | Outpatient (BNV) | payer OTHER, SELFPAY | PROVIDERS: Emergency Provider Emergency Medicine; PCP Nurse Practitioner Family; Visit Provider Internal Medicine Cardiovascular Disease | DX: R07.89 Other chest pain (principal) | CPT/HCPCS: 93010 ==

== ENCOUNTER → 2025-01-04 13:30 | Outpatient (BNV) | payer OTHER, SELFPAY | PROVIDERS: Emergency Provider Emergency Medicine; PCP Nurse Practitioner Family; Visit Provider Radiology Diagnostic Radiology | DX: J90 Pleural effusion, not elsewhere classified (principal) | CPT/HCPCS: 71275 ==

== ENCOUNTER 2025-01-11 20:40 | Inpatient (IN) | payer OTHER, SELFPAY ==
--- NOTE | ~2025-01-11 | XR_ITS ---
CLINICAL HISTORY: Bacteremia unclear cause 1 view chest x-ray Comparison: 09/12/2023 Findings: Left basilar consolidation, possible pneumonia. Right lung clear. Heart size normal. No acute bony abnormalities. Impression: Left basilar consolidation, possible pneumonia This document has been electronically signed by: Solomon Santos MD on 01/11/2025 23:13:31
[2025-01-11 19:28] VITALS: BP 103/83; PULSE 96; O2SAT 94
[2025-01-11 19:37] VITALS: BP 109/61; PULSE 96; RESP 12; TEMP 36.6; O2SAT 90; BMI 24.9
[2025-01-11 19:38] VITALS: BP 109/61; PULSE 96; RESP 12; TEMP 36.6; O2SAT 95
--- NOTE | 2025-01-11 19:38 | MHC.EDTECH ---
Belongings placed in shelf 4 of banner
--- NOTE | 2025-01-11 20:46 | ED_ITS ---
HPI - Overdose General Chief Complaint: Overdose Stated Complaint: OD, narcan given History of Present Illness ED Provider: Carter Lord MD HPI Narrative: 34-year-old female brought in after an overdose police gave the patient 4 mg nasal Narcan patient came in awake but drowsy. Of note our records reveal 01/04/2025 blood cultures x2 positive for MRSA Related Data Previous Rx's ?Medication ?Instructions ?Recorded amoxicillin 875 mg-potassium 1 tab PO BID #14 tabs 01/22 clavulanate 125 mg tablet doxycycline hyclate 100 mg tablet 100 mg PO BID #14 ta bs 01/04/25 Allergies Allergy/AdvReac Type Severity Reaction Status Date / Time SEASONAL ALLERGIES Allergy Unknown ITCHY Uncoded 01/11/25 19:38 EYES/SNEEZING PMFSH Past Medical History Medical History Fatty liver disease, nonalcoholic Hepatitis C IVDU (intravenous drug user) Surgical History History of delivery H/O dilation and curettage Social History Social History Household Members: None Household Members Other:: Homeless Housing: Homeless Do you presently have visiting nurse or other home services: No Patient Tobacco Use Status: Current everyday Tobacco user Tobacco use type: Cigarette Cigarettes Per Day: 10 e-Cigarette/Vaping Use: Currently Using Second Hand Smoke Exposure: No (pt. refused) Substance Use Type: Crack/Cocaine Advance Directives Date on File: 09/16/23 service: No Physical Exam 2 Vital Signs: Vital Signs: Last Vital Signs Temp 97.9 F 01/12/25 15:34 Pulse 87 01/12/25 15:34 Resp 18 01/12/25 15:34 BP 101/67 01/12/25 15:34 Pulse Ox 98 01/12/25 15:34 O2 Del Method Room Air 01/12/25 15:34 O2 Flow Rate 2 01/11/25 19:38 BMI result Body Mass Index 24.9 EXAM: Gen: Sleepy. Easily arousable. Pupils 2-3 mm symmetric reactive. Head: Atraumatic Eyes: Anicteric, Normal conjunctiva. ENT: Moist mucosa, no pallor. ? Neck: Supple. Skin: ?No observable rash or bruising on exposed or examined skin. No obvious infected track karina or abscess in exposed areas of skin that were examined Respiratory: Breathing comfortably, No distress.Clear to auscultation bilaterally, symmetric chest expansion, No wheeze, rales, ronchi. Cardiovascular: Regular rate and rhythm. No murmurs or rub. Well perfused periphery, warm extremities. No edema. ? Abdominal: No focal tenderness. Soft, no objective distension. No palpable masses or obvious organomegaly. ?No guarding, no rebound tenderness or other peritoneal findings. : No flank tenderness. Neuro: Alert. Gross movement of all extremities intact. ? Psych: Calm. Cooperative. MSK: No grossly visible deformity. Vital signs: See flowsheet Medications Administered Generic Name Dose Route Start Last Admin Trade Name Freq PRN Reason Stop Dose Admin Enoxaparin Sodium 40 mg 01/12/25 09:00 01/12/25 08:35 Enoxaparin Sodium 40 Mg/0.4 Ml Syringe SUBCUT 40 mg Q24H JESI Administration Vancomycin HCl 1,000 mg/ 270 mls @ 270 mls/hr 01/12/25 12:00 01/12/25 12:43 Sodium Chloride IV Infused Q12H JESI Infusion Cefazolin Sodium/Dextrose 2 gm in 50 mls @ 100 mls/hr 01/12/25 12:15 01/12/25 13:37 Ancef IV Infused Q8H JESI Infusion Sodium Chloride 3 ml 01/12/25 00:00 01/12/25 16:05 0.9 % Sodium Chloride Flush 3 Ml Syringe IVFLUSH 3 ml QSHIFT JESI Administration Discontinued Medications Generic Name Dose Route Start Last Admin Trade Name Freq PRN Reason Stop Dose Admin Piperacillin Sod/Tazobactam 50 mls @ 100 mls/hr 01/11/25 22:25 01/11/25 23:55 Sod 3.375 gm/ Sodium Chloride IV 01/11/25 22:54 Infused ONCE ONE Infusion Vancomycin HCl 1,000 mg/ 535 mls @ 267.5 mls/hr 01/11/25 23:00 01/12/25 02:04 Vancomycin HCl 750 mg/ Sodium IV 01/12/25 00:59 Infused Chloride ONCE ONE Infusion Lactated Ringer's 1,000 mls @ 999 mls/hr 01/11/25 23:30 01/12/25 01:28 Lr IV 01/12/25 00:30 Infused .Q1H1M JESI Infusion Ampicillin Sodium/Sulbactam 100 mls @ 200 mls/hr 01/12/25 00:00 01/12/25 06:24 Sodium 3 gm/ Sodium Chloride IV Not Given Q6H JESI Ampicillin Sodium/Sulbactam 100 mls @ 200 mls/hr 01/12/25 08:00 01/12/25 08:37 Sodium 3 gm/ Sodium Chloride IV Infused Q6H JESI Infusion Procedures Procedure Narrative Procedure Narrative: Ultrasound Guided Peripheral Intravenous Catheter Placement Indication: Intravenous Access Location: Right brachial vein Provider: Self I was approached by nursing staff and informed that multiple unsuccessful attempts had been made to establish IV access in the patient. The patients arm was surveyed with the ultrasound for verification of vessel collapsibility, patency, depth and caliber, as well as identification of nearby structures. The target area was prepped with chlorhexidine. A tourniquet was placed proximally on the extremity. Under real-time ultrasound guidance, an ?20 G 10cm BARD Powerglide Midline Non Tunnelled Catheter was advanced into the target vein. Dark blood was visualized in the flash chamber. The catheter was easily advanced into the vein. The catheter was evacuated of air and flushed with sterile saline. The catheter was secured in place with a tegaderm. The patient tolerated the procedure well and there were no complications. Estimated Blood Loss: 1mL Total Time for Procedure: 5min Images Stored CPT: 99802; 81819 Medical Decision Making Medical Decision Making MDM Narrative: Medical Decision Makin-year-old with polysubstance use disorder, IV drug use including cocaine fentanyl heroin, untreated hepatitis-C who presents after police bystander gave her 4 mg naloxone for suspected opioid overdose. The patient is drowsy but easily arousable. Has no evidence of trauma on exam no superficial evidence to suggest localized bacterial infection. Of note the patient was seen on January 04 about a week ago here had cough. CT showed ground-glass in the left base and she was treated empirically with antibiotic for pneumonia with doxycycline and Augmentin. Unclear whether she completed this course she has poor historian. Patient later had MRSA growth in both of her blood cultures and attempts were made to contact her to come back but she was unable to be contacted. Patient denies continued respiratory symptoms or other focal infectious symptoms though she is unreliable on drowsy. She is agreeable to be admitted to the hospital we will treat her with broad-spectrum antibiotics. No sepsis criteria met. Midline placed by myself in the right arm see procedure note. Preliminary Favored Differential Diagnosis: Untreated bacteremia or incomplete bacteremia treatment, pneumonia, endocarditis, skin or soft tissue infection a abrahan additional considered etiologies Testing Interpreted Independently: Not Applicable Radiology or Lab testing Results Reviewed: White count 11.7. Neutrophil predominant. Non actionable chemistry. Chest x-ray read by Radiology as left lower lobe infiltrate. Consults: Not Applicable Independent Historians/External Chart Reviews: Not Applicable Social Determinants of Health Impacting MDM/Planning: Not Applicable Lab Data 01/12/25 04:57 01/12/25 04:57 Labs: Lab Results 01/11/25 01/11/25 01/11/25 Range/Units 22:14 22:18 23:27 WBC 11.7 H (4.8-10.8) X10*3/uL RBC 4.03 L (4.20-5.50) X10*6/uL Hgb 12.2 (12.0-16.0) g/dl Hct 35.5 L (37.0-47.0) % MCV 88.1 (80.0-98.0) fL MCH 30.3 (27.0-33.0) pg MCHC 34.4 (31.0-35.0) g/dl RDW 13.0 (11.0-16.0) % Plt Count 336 D (160-400) X10*3/uL MPV 9.7 (9.4-12.3) fL Immature Gran % (Auto) 1.9 H (0.0-0.4) % Neut % (Auto) 82.7 H (45-73) % Lymph % (Auto) 8.8 L (20-40) % [place] % (Auto) 6.3 (2-11) % Eos % (Auto) 0.0 (0-4) % Baso % (Auto) 0.3 (0-2) % Lymph # (Auto) 1.0 L (1.2-4.9) X10*3/uL [place] # (Auto) 0.7 (0.1-1.2) X10*3/uL Eos # (Auto) 0.0 (0.0-0.4) X10*3/uL Baso # (Auto) 0.0 (0.0-0.2) X10*3/uL Abs Immat Gran (auto) 0.22 H (0.00-0.03) X10*3/uL Absolute Neuts (auto) 9.6 H (2.0-8.3) x10*3/uL Absolute Nucleated RBC 0.000 (0.0-0.012) X10*3/uL Nucleated RBC % (auto) 0.0 (0.0-0.2) /100WBC ESR 72 H (0-20) MM/HR Sodium 137 (135-145) mmol/L Potassium 5.1 D (3.3-5.1) mmol/L Chloride 105 (96-108) mmol/L Carbon Dioxide 22 (22-29) mmol/L Anion Gap 15 (12-20) BUN 15 (9-16) mg/dL Creatinine 1.02 0.94 (0.5-1.4) mg/dL Estim Creat Clear Calc 73.2 79.4 Estimated GFR > 60 > 60 Random Glucose 78 (60-115) mg/dL Lactic Acid 1.0 (0.5-2.0) mmol/L Calcium 9.2 (8.4-10.2) mg/dL Total Bilirubin 0.2 (0.0-1.0) mg/dL AST 57 H (5-31) U/L ALT 49 H (0-31) U/L Alkaline Phosphatase 87 (39-117) U/L C-Reactive Protein 2.20 H (< or = 0.50) mg/dL Total Protein 8.6 H (6.5-8.0) g/dL Albumin 4.2 (3.5-5.0) g/dL Discharge Plan Discharge Clinical Impression: Opioid use disorder Patient Disposition: Admitted As Inpatient Interventions: Admission Worksheet (ED) Last Done: 01/12/25 08:10 Discharge Date/Time: 01/12/25 09:16
[2025-01-11 21:30] VITALS: PULSE 77; RESP 13; O2SAT 100
[2025-01-11 22:25] LABS: MANUAL DIFF FLAG NO
[2025-01-11 22:30] LABS: Hematocrit 35.5 % (37.0-47.0); Hemoglobin 12.2 g/dl (12.0-16.0); Imm Gran Abs Auto 0.22 X10*3/uL (0.00-0.03); Imm Gran Pct Auto 1.9 % (0.0-0.4); Lymphocytes Absolute Auto 1.0 X10*3/uL (1.2-4.9); Mean Corpuscular HGB Conc 34.4 g/dl (31.0-35.0); Mean Corpuscular Hemoglobin 30.3 pg (27.0-33.0); Mean Corpuscular Volume 88.1 fL (80.0-98.0); NRBC Abs Auto 0.000 X10*3/uL (0.0-0.012); NRBC Pct Auto 0.0 /100WBC (0.0-0.2); Platelet Count 336 X10*3/uL (160-400); Red Blood Count 4.03 X10*6/uL (4.20-5.50); White Blood Count 11.7 X10*3/uL (4.8-10.8)
[2025-01-11 22:44] LABS: Alanine Aminotransferase 49 U/L (0-31); Albumin Level 4.2 g/dL (3.5-5.0); Alkaline Phosphatase 87 U/L (39-117); Anion Gap 15 (12-20); Aspartate Amino Transferase 57 U/L (5-31); Blood Urea Nitrogen 15 mg/dL (9-16); Calcium 9.2 mg/dL (8.4-10.2); Carbon Dioxide 22 mmol/L (22-29); Chloride 105 mmol/L (96-108); Creatinine Clr Calc Pharmacy 73.2; Estimated Glomerular Filt Rate > 60; Potassium 5.1 mmol/L (3.3-5.1); Sodium 137 mmol/L (135-145); Total Protein 8.6 g/dL (6.5-8.0)
[2025-01-11 23:35] VITALS: BP 98/67; PULSE 69; RESP 12; O2SAT 97
--- NOTE | 2025-01-11 23:36 | PM.IMHP ---
History of Present Illness Date of Service: 01/11/25 Chief Complaint: Overdose This has a 34-year-old female with pertinent history of polysubstance IVDU, iron-deficiency anemia, hepatitis-C who was brought to the emergency department after heroin overdose. Patient was brought in my PD after drug overdose. She was given 4 mg nasal Narcan. Patient is drowsy and lethargic in the time of my evaluation but awakens to verbal stimulus and appropriately answers questions. She does endorse injecting IV heroin and she does not remember anything after. Also admits using cocaine. Denies history of infections in the past. Patient was diagnosed with pneumonia on 01/04 but did not complete antibiotic course. Her blood cultures from 01/04 are positive with MRSA bacteremia. She denies any complaints at this time. Unable to obtain complete review of systems. In the emergency department, patient was given IV vancomycin and imaging concerning for left-sided consolidation. Review of Systems Review of Systems: Yes Unobtainable due to mental status PMFSH Medical History Fatty liver disease, nonalcoholic Hepatitis C IVDU (intravenous drug user) Pertinent family history: Unable to obtain Surgical History History of delivery H/O dilation and curettage Social History Household Members: Friend(s) Housing: Apartment Do you presently have visiting nurse or other home services: No Patient Tobacco Use Status: Never used Tobacco e-Cigarette/Vaping Use: Currently Using Second Hand Smoke Exposure: No Substance Use Type: Crack/Cocaine Advance Directives: Yes Advance Directives on File: Yes Advance Directives Date on File: 09/16/23 service: No Meds Allergies Allergy/AdvReac Type Severity Reaction Status Date / Time SEASONAL ALLERGIES Allergy Unknown ITCHY Uncoded 01/11/25 19:38 EYES/SNEEZING Active Medications: Current Medications Acetaminophen (Acetaminophen 325 Mg Tablet) 650 mg PO Q6H PRN PRN Reason: Pain, Mild 1-3,fever,headache Calcium Carbonate (Calcium Carbonate 750 Mg Tab.Chew) 750 mg PO Q4H PRN PRN Reason: Heartburn Enoxaparin Sodium (Enoxaparin Sodium 40 Mg/0.4 Ml Syringe) 40 mg SUBCUT Q24H JESI Vancomycin HCl 1,000 mg/Vancomycin HCl 750 mg/ Sodium Chloride 535 mls @ 267.5 mls/hr IV ONCE ONE Stop: 01/12/25 00:59 Lactated Ringer's (Lr) 1,000 mls @ 999 mls/hr IV .Q1H1M [facility] Stop: 01/12/25 00:30 Magnesium Hydroxide (Milk Of Magnesia 30 Ml Oral.Susp) 30 ml PO DAILY PRN PRN Reason: Constipation Melatonin (Melatonin 3 Mg Tablet) 6 mg PO BEDTIME PRN PRN Reason: Insomnia Ondansetron HCl (Ondansetron Hcl 4 Mg/2 Ml Vial) 4 mg IVPUSH Q8H PRN PRN Reason: Nausea and Vomiting Pharmacy Consult (Consult Rx Vancomycin Dosing) 1 each MISCELLANE DAILY PRN PRN Reason: Consult order Sodium Chloride (0.9 % Sodium Chloride Flush 3 Ml Syringe) 3 ml IVFLUSH QSHIFT [facility] Physical Exam Vital Signs and Narrative: Vital Signs: Last Vital Signs Temp 97.9 F 01/11/25 19:38 Pulse 77 01/11/25 21:30 Resp 13 01/11/25 21:30 BP 109/61 01/11/25 19:38 Pulse Ox 100 01/11/25 21:30 O2 Del Method Room Air 01/11/25 21:30 O2 Flow Rate 2 01/11/25 19:38 BMI result Body Mass Index 24.9 Middle-aged female lying in bed in no distress Neck supple, no JVD Regular rate and rhythm, S1-S2 heard Left-sided crackles without wheezing Abdomen soft nontender, no guarding, no rigidity Patient is drowsy but awakens to verbal stimulus, answers questions appropriately, follows commands, no focal motor deficit Psych: Lethargic Track haywood seen in extremities Results Labs 01/11/25 22:14 01/11/25 22:14 Labs: Laboratory Results - last 24 hr 01/11/25 01/11/25 22:14 22:18 MCV 88.1 MCH 30.3 MCHC 34.4 RDW 13.0 Plt Count 336 D MPV 9.7 Immature Gran % (Auto) 1.9 H Neut % (Auto) 82.7 H Lymph % (Auto) 8.8 L [place] % (Auto) 6.3 Eos % (Auto) 0.0 Baso % (Auto) 0.3 Lymph # (Auto) 1.0 L [place] # (Auto) 0.7 Eos # (Auto) 0.0 Baso # (Auto) 0.0 Abs Immat Gran (auto) 0.22 H Absolute Neuts (auto) 9.6 H Absolute Nucleated RBC 0.000 Nucleated RBC % (auto) 0.0 ESR 72 H Anion Gap 15 Estim Creat Clear Calc 73.2 Estimated GFR > 60 Random Glucose 78 Lactic Acid 1.0 Calcium 9.2 Total Bilirubin 0.2 AST 57 H ALT 49 H Alkaline Phosphatase 87 C-Reactive Protein 2.20 H Total Protein 8.6 H Albumin 4.2 Assessment and Plan (1) MRSA bacteremia: Status: Acute (2) Acute encephalopathy: Status: Acute (3) Pneumonia involving left lung: Status: Acute Plan This has a 34-year-old female with pertinent history of polysubstance IVDU, iron-deficiency anemia, hepatitis-C who was brought to the emergency department after heroin overdose. #. MRSA bacteremia: Initiated vancomycin, 01/11. Repeat cultures pending. Obtaining echocardiogram. Will need ID consult pending echo #. Left lung pneumonia: Concern for aspiration in the setting of encephalopathy and drug use. Initiated IV Unasyn #. Acute toxic encephalopathy due to accidental heroin overdose: Patient given 4 mg Narcan by PD. Mentation improving at the time of my evaluation. #. Polysubstance IVDU: Consulted Addiction Team #. Hepatitis-C: Outpatient follow-up DVT prophylaxis: Lovenox Full code Admit as inpatient and will require two night minimum hospital stay for IV antibiotics (as above), which is not possible in a lesser acute setting. Quality Stroke Does the patient have a stroke diagnosis?: No VTE Prior VTE?: No VTE Risk Level:: Medical - moderate - high VTE Device Contraindication: Treatment Not Indicated VTE Drug Contraindication: N/A - Med Ordered
[2025-01-11 23:51] LABS: Creatinine Clr Calc Pharmacy 79.4; Estimated Glomerular Filt Rate > 60
[2025-01-11] MEDS: vancomycin HCL 1,000 MG, vancomycin HCL 750 MG in 0.9 % Sodium Chloride 500 ML 267.5 MG IV (23:54)
[2025-01-11] MEDS: Lactated Ringers 1,000 ML 999 ML IV (23:55)
[2025-01-12] MEDS: 0.9 % Sodium Chloride Flush 3 ML SYRINGE IVFLUSH ×3 (00:05→19:29)
[2025-01-12 01:08] VITALS: BP 126/81; PULSE 98; RESP 17; TEMP 36.6; O2SAT 97
--- NOTE | 2025-01-12 02:52 | HO.SKINPHOTO ---
Location: lower back
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
[2025-01-12 05:30] LABS: Hematocrit 34.2 % (37.0-47.0); Hemoglobin 11.1 g/dl (12.0-16.0); Imm Gran Abs Auto 0.09 X10*3/uL (0.00-0.03); Imm Gran Pct Auto 1.0 % (0.0-0.4); Lymphocytes Absolute Auto 2.4 X10*3/uL (1.2-4.9); MANUAL DIFF FLAG NO; Mean Corpuscular HGB Conc 32.5 g/dl (31.0-35.0); Mean Corpuscular Hemoglobin 29.2 pg (27.0-33.0); Mean Corpuscular Volume 90.0 fL (80.0-98.0); NRBC Abs Auto 0.000 X10*3/uL (0.0-0.012); NRBC Pct Auto 0.0 /100WBC (0.0-0.2); Platelet Count 372 X10*3/uL (160-400); Red Blood Count 3.80 X10*6/uL (4.20-5.50); White Blood Count 9.0 X10*3/uL (4.8-10.8)
[2025-01-12 05:33] VITALS: BP 104/63; PULSE 66; RESP 17; TEMP 36.1; O2SAT 95
[2025-01-12 05:52] LABS: Anion Gap 12 (12-20); Blood Urea Nitrogen 12 mg/dL (9-16); Calcium 8.7 mg/dL (8.4-10.2); Carbon Dioxide 28 mmol/L (22-29); Chloride 103 mmol/L (96-108); Creatinine Clr Calc Pharmacy 86.8; Estimated Glomerular Filt Rate > 60; Potassium 5.4 mmol/L (3.3-5.1); Sodium 138 mmol/L (135-145)
--- NOTE | 2025-01-12 07:00 | CA_ITS ---
Transthoracic Echocardiogram Patient (Last, First, Middle): Chloe Drake, Gender: Female Date of : 1990 Age: 34 Procedure Date: 01/12/2025 Procedure Type: Transthoracic Echocardiogram Location: [facility] [place] Height: 162.56 cm Weight: 65.77 kg BSA: 1.71 m2 Heart Rate: bpm BP: 104 / 64 mmHg Glassie: TO Referring MD: Stacy Ashraf MD Symptoms: MRSA bacteremia Study Quality: Good ECG Rhythm: Sinus Conclusions: - The left ventricular systolic function is low normal. The calculated ejection fraction is 54% by biplane method. - The basal inferior and mid inferoseptal segments are hypokinetic. - No obvious valvular pathology seen on this study. Findings Left Ventricle Normal left ventricular cavity size. The left ventricular systolic function is low normal. The calculated ejection fraction is 54% by biplane method. Diastolic function is normal for age. There is mild septal asymmetric hypertrophy. Wall Motion Rest Echo Findings The basal inferior and mid inferoseptal segments are hypokinetic. Right Ventricle Normal right ventricular cavity size. There is mildly decreased right ventricular systolic function. Atria Both atria are normal in size. Aortic Valve The aortic valve was not well visualized. There is no aortic valve stenosis. There is no aortic valve regurgitation. Mitral Valve The mitral valve appears normal. There is no mitral valve regurgitation. There is no mitral valve stenosis. Pulmonic Valve The pulmonic valve is likely normal. Tricuspid Valve Normal tricuspid valve structure. There is trace tricuspid valve regurgitation. There is no evidence of pulmonary hypertension. Great Vessels The asc aorta is normal in size. Venous The inferior vena cava is normal in size and collapses less than 50% with inspiration. Pericardium/Pleural There is no evidence of pericardial effusion. Prior Study Comparison Changes noted compared to prior study dated: 09/13/2023. see comment on wall motion. Recommendations, Care & Conclusions No obvious valvular pathology seen on this study. Measurements 2D Linear Measurements IVSd: 1.21 0.6-0.9/0.6-1.0 cm LVIDd: 4.86 3.9-5.3/4.2-5.9 cm LVIDd Index: 2.84 2.4-3.2/2.2-3.1 cm/m2 LVIDs: 3.57 2.0-3.6 cm LVPWd: 0.95 0.7-1.1 cm Ao Root: 2.90 2.1-3.5 cm LA Diam: 3.60 2.7-3.8/3.0-4.0 cm LAIDs Index: 2.11 1.5-2.3 cm/m2 LV Mass: 240.71 67-162/88-224 g LV Mass Index: 140.77 43-95/49-115 g/m2 LVOT Diam: 2.20 3.0+(-)1.3 cm 2D Systolic Function EF 4C: 52.10 >55% EF 2C: 53.50 >55% EF BiP: 54.20 >55% Mitral Valve MV Pk E: 0.79 MV PK A: 0.55 MV Decel Time: 257.00 E/A: 1.40 E'Lateral: 12.90 E'Medial: 7.72 E/E' Med: 10.20 E/E' Lat: 6.10 PHT: 75.00 MVA PHT: 2.93 Decel [place]: 3.06 Aortic Valve AoV Pk Ozzie: 1.45 AoV Mn Ozzie: 1.07 AoV VTI: 0.26 AoV Pk Grad: 8.00 Aov Mn Grad: 5.00 MARKOS Cont.VTI: 3.03 LVOT LVOT Pk Ozzie: 1.16 LVOT Mn Ozzie: 0.79 LVOT VTI: 0.21 LVOT Pk Grad: 5.00 LVOT Mn Grad: 3.00 LVOT Diam: 2.20 LVOT Area: 3.80 Diastolic Function MV Pk E: 0.79 MV Pk A: 0.55 E/A: 1.40 E'Medial: 7.72 E/E' Med: 10.20 E' Laterial: 12.90 E/E' Lat: 6.10 Right Ventricle TAPSE (mm): 18.00 TVS' Ozzie: 38.00 Tricuspid Valve TR Pk Ozzie: 2.00 TR Pk Grad: 16.00 RA Press: 3.00 RVSP: 19.00 Great Vessels Aorta Ao Root-2D: 2.90 2.0-3.7 cm Ao Asc: 2.40 2.1-3.4 cm Updated in Other Vendor System with Status of Final Grabiel Alicea MD electronically signed on 01/12/2025 3:54:54 PM with status of Final
[2025-01-12 09:28] VITALS: BMI 27.8
[2025-01-12 09:36] VITALS: BP 99/63; PULSE 70; RESP 18; TEMP 36.1; O2SAT 93
--- NOTE | 2025-01-12 10:11 | HO.PM.IMPN ---
Subjective Subjective Date of Service: 01/12/25 Interval History: seen and evaluated this morning reports is comfortable except for an ongoing, non-productive cough denies any withdrawal symptoms Review of Systems Review of Systems: Yes all other systems are reviewed and are negative Respiratory Respiratory: Reports cough (non-productive) Physical Exam Vital Signs: Vital Signs: Last Vital Signs Temp 97.0 F 01/12/25 09:36 Pulse 70 01/12/25 09:36 Resp 18 01/12/25 09:36 BP 99/63 01/12/25 09:36 Pulse Ox 93 01/12/25 09:36 O2 Del Method Room Air 01/12/25 09:36 O2 Flow Rate 2 01/11/25 19:38 BMI result Body Mass Index 27.8 Const: Orientation/consciousness: patient oriented x3 HEENT: Head: Yes normal to inspection Eyes: Pupils: Equal, round and reactive pupils present Resp: Effort & Inspection: normal respiratory effort, able to speak in complete sentences, audible wheezes (BUL, inspiratory ) and Actively coughing Quality: dry Auscultation: diminished lung sounds bilateral in the lower lung meyers Cardio: Rate: regular rate Rhythm: regular rhythm GI: Auscultation: normal bowel sounds Skin: Other: 2 small circular erythematous areas to low back (?bug bites per pt) multiple scarred areas to Bilateral upper and lower extremeties Neuro: General: patient oriented x3 Cranial nerves: Yes Equal, round and reactive pupils present Objective Data Active Medications Acetaminophen (Acetaminophen 325 Mg Tablet) 650 mg PO Q6H PRN PRN Reason: Pain, Mild 1-3,fever,headache Calcium Carbonate (Calcium Carbonate 750 Mg Tab.Chew) 750 mg PO Q4H PRN PRN Reason: Heartburn Enoxaparin Sodium (Enoxaparin Sodium 40 Mg/0.4 Ml Syringe) 40 mg SUBCUT Q24H [facility] Last Admin: 01/12/25 08:35 Dose: 40 mg Documented By: DAX Ampicillin Sodium/Sulbactam (Sodium 3 gm/ Sodium Chloride) 100 mls @ 200 mls/hr IV Q6H [facility] Last Infusion: 01/12/25 08:37 Dose: Infused Documented By: DAX Vancomycin HCl 1,000 mg/ (Sodium Chloride) 270 mls @ 270 mls/hr IV Q12H [facility] Magnesium Hydroxide (Milk Of Magnesia 30 Ml Oral.Susp) 30 ml PO DAILY PRN PRN Reason: Constipation Melatonin (Melatonin 3 Mg Tablet) 6 mg PO BEDTIME PRN PRN Reason: Insomnia Ondansetron HCl (Ondansetron Hcl 4 Mg/2 Ml Vial) 4 mg IVPUSH Q8H PRN PRN Reason: Nausea and Vomiting Pharmacy Consult (Consult Rx Vancomycin Dosing) 1 each MISCELLANE DAILY PRN PRN Reason: Consult order Sodium Chloride (0.9 % Sodium Chloride Flush 3 Ml Syringe) 3 ml IVFLUSH QSHIFT [facility] Last Admin: 01/12/25 07:27 Dose: Not Given Documented By: DAX Non-Admin Reason: IV Running Labs 01/12/25 04:57 01/12/25 04:57 Labs: Laboratory Results - last 24 hr 01/11/25 01/11/25 01/11/25 22:14 22:18 23:27 MCV 88.1 MCH 30.3 MCHC 34.4 RDW 13.0 Plt Count 336 D MPV 9.7 Immature Gran % (Auto) 1.9 H Neut % (Auto) 82.7 H Lymph % (Auto) 8.8 L [place] % (Auto) 6.3 Eos % (Auto) 0.0 Baso % (Auto) 0.3 Lymph # (Auto) 1.0 L [place] # (Auto) 0.7 Eos # (Auto) 0.0 Baso # (Auto) 0.0 Abs Immat Gran (auto) 0.22 H Absolute Neuts (auto) 9.6 H Absolute Nucleated RBC 0.000 Nucleated RBC % (auto) 0.0 ESR 72 H Anion Gap 15 Estim Creat Clear Calc 73.2 79.4 Estimated GFR > 60 > 60 Random Glucose 78 Lactic Acid 1.0 Calcium 9.2 Total Bilirubin 0.2 AST 57 H ALT 49 H Alkaline Phosphatase 87 C-Reactive Protein 2.20 H Total Protein 8.6 H Albumin 4.2 01/12/25 04:57 MCV 90.0 MCH 29.2 MCHC 32.5 RDW 13.1 Plt Count 372 MPV 8.7 L Immature Gran % (Auto) 1.0 H Neut % (Auto) 63.5 Lymph % (Auto) 26.6 [place] % (Auto) 8.6 Eos % (Auto) 0.0 Baso % (Auto) 0.3 Lymph # (Auto) 2.4 [place] # (Auto) 0.8 Eos # (Auto) 0.0 Baso # (Auto) 0.0 Abs Immat Gran (auto) 0.09 H Absolute Neuts (auto) 5.7 Absolute Nucleated RBC 0.000 Nucleated RBC % (auto) 0.0 ESR Anion Gap 12 Estim Creat Clear Calc 86.8 Estimated GFR > 60 Random Glucose 82 Lactic Acid Calcium 8.7 Total Bilirubin AST ALT Alkaline Phosphatase C-Reactive Protein Total Protein Albumin Assessment and Plan (1) Opioid use disorder: Status: Acute (2) MRSA bacteremia: Status: Acute (3) Sepsis: Status: Acute Plan 34-year-old female with pertinent history of polysubstance IVDU, iron-deficiency anemia, hepatitis-C who was brought to the emergency department after heroin overdose. MRSA Sepsis/bacteremia from 01/04 cultures IV vancomycin, 01/11 Kefzol for synergy Repeat cultures pending Echo to rule out vegetations ID consult Left lung pneumonia aspiration vs possible septic embol Abx as above Acute toxic encephalopathy due to accidental heroin overdose, resolved after Narcan Polysubstance IVDU Consulted Addiction Team Hepatitis-C Outpatient follow-up DVT prophylaxis: Lovenox Full code Quality Stroke Does the patient have a stroke diagnosis?: No VTE Prior VTE?: No VTE Risk Level:: Medical - moderate - high VTE Device Contraindication: Treatment Not Indicated VTE Drug Contraindication: N/A - Med Ordered
--- NOTE | 2025-01-12 10:15 | MHC.SLORD ---
Speech Language Pathology Order Status: DIRECTOR OF PHOTOGRAPHY consult received for aspiration. DIRECTOR OF PHOTOGRAPHY attempted to see pt this morning. Pt was resting and awoke to DIRECTOR OF PHOTOGRAPHY's greeting however pt having difficulty keeping eyes open. Pt expressed preference for DIRECTOR OF PHOTOGRAPHY to return later.
--- NOTE | 2025-01-12 11:45 | PHA.MEDREC ---
Addendum entered by Constance Carter RP 01/12/25 12:19: Reviewed by [facility] Original Note: Pharmacy Consult ? Medication Reconciliation Pharmacy has completed the medication reconciliation. Spoke with pt and she states she is not taking any scheduled medications at home. Pt confirmed she was prescribed Amoxicillin and Doxycycline on 01/04 when pt was last admitted/discharged with us and states she started those 01/05 but wasn't consistent with taking them and has a couple left at home and last took a dose yesterday.
--- NOTE | 2025-01-12 14:13 | MHC.RECOVRN ---
Met with pt in room 387-1 to discuss resources and supports regarding OUD. Pt voiced interest in attending a CSS post-discharge. During interaction pt was flat and guarded. Pt stated she has previously attended [facility] in [place] and would like to try a different program this time. Pt currently denies withdrawal symptoms and is open to CSS referrals. Will consult with CM and MD to discuss D/C plan as pt is currently receiving IV antibiotics. Will follow-up with pt tomorrow to discuss.
--- NOTE | 2025-01-12 15:17 | MHC.SL.SWA ---
Risk of Aspiration Due to: exam WFL Dysphasia Diet Status: reg/thin Liquid Consistency and Strategies for Safe Swallow: Liquid Intake Recommendation: Thin Solid Food Consistency: Dietary Recommendations: Regular Oral Medication Intake: Whole with Liquid Please contact the pharmacy regarding appropriate crushable or liquid drug formulations that are available whenever modified delivery is recommended. Compensatory Strategies and Precautions to be Taken for Safe Swallow: sit upright Supervision While Eating and Drinking for Safe Swallow: None Needed Recommendation for Speech: NA:Typical Evaluation Comment: No further COLLAR SEPARATOR tx warranted at this time. Please re-refer if new concerns for swallowing arise. Pest Control Chemical Technician Clinican/Clinical Fellow: No Supervisory Statement: I have reviewed and agree with the student/clinical fellow's documentation: N/A Speech Language Pathologist: Letha Watson M.A., CCC-COLLAR SEPARATOR
[2025-01-12 15:34] VITALS: BP 101/67; PULSE 87; RESP 18; TEMP 36.6; O2SAT 98
--- NOTE | 2025-01-12 15:50 | MHC.CM.PN ---
pt is homeless has a hcp pt reports that she wants to get into a program addition medicine to see pt dc plan tbd
--- NOTE | 2025-01-12 15:58 | HO.ADDICT_ITS ---
History of Present Illness Date of Service: 01/12/2025 Chief Complaint: AMS Reason for Consult: OD Sources of Information: patient interviewed and chart reviewed HPI Narrative: Patient is a 34 year old female with history of CHYNA, who presented to [facility] ED following opiate overdose. While in ED it was noted, that patient was seen on 01/04 for cough, and since then cultures returned positive, so patient admitted. Seen in room 387. She is awake, but not entirely alert as she is noted to be falling asleep several times during interview. She reports that she normally uses cocaine, and yesterday, added a bad of fentanyl to her cocaine and this is what led to OD. She denies daily/frequent opiate use. Denies any withdrawal sx . Reports that she had previously been prescribed methadone, however did not care for it, and did not continue. Reports 3 lifetime overdoses. Reports one admission for treatment---required due to probation. Aside from that denies any admissions to [facility], [facility] etc. Medical Evaluation Reviewed: Yes Review of Systems Constitutional: Reports as per HPI and Reports no additional constitutional complaints Diagnostics Vital Signs (24Hr): Vital Signs - 24 hr 01/11/25 19:37 01/11/25 19:38 01/11/25 21:30 Temperature 97.9 F 97.9 F Pulse Rate 96 96 77 Respiratory Rate 12 12 13 Blood Pressure 109/61 109/61 Pulse Oximetry 90 L 95 100 Oxygen Delivery Method Room Air Room Air Room Air Oxygen Flow Rate 2 01/11/25 23:35 01/12/25 01:08 01/12/25 05:33 Temperature 97.8 F 96.9 F Pulse Rate 69 98 66 Respiratory Rate 12 17 17 Blood Pressure 98/67 126/81 104/63 Pulse Oximetry 97 97 95 Oxygen Delivery Method Room Air Room Air Room Air Oxygen Flow Rate 01/12/25 09:36 01/12/25 15:34 Temperature 97.0 F 97.9 F Pulse Rate 70 87 Respiratory Rate 18 18 Blood Pressure 99/63 101/67 Pulse Oximetry 93 98 Oxygen Delivery Method Room Air Room Air Oxygen Flow Rate BMI result Body Mass Index 27.8 Labs 01/12/25 04:57 01/12/25 04:57 Labs: Laboratory Results - last 48 hr 01/11/25 01/11/25 01/11/25 22:14 22:18 23:27 WBC 11.7 H RBC 4.03 L Hgb 12.2 Hct 35.5 L MCV 88.1 MCH 30.3 MCHC 34.4 RDW 13.0 Plt Count 336 D MPV 9.7 Immature Gran % (Auto) 1.9 H Neut % (Auto) 82.7 H Lymph % (Auto) 8.8 L [place] % (Auto) 6.3 Eos % (Auto) 0.0 Baso % (Auto) 0.3 Lymph # (Auto) 1.0 L [place] # (Auto) 0.7 Eos # (Auto) 0.0 Baso # (Auto) 0.0 Abs Immat Gran (auto) 0.22 H Absolute Neuts (auto) 9.6 H Absolute Nucleated RBC 0.000 Nucleated RBC % (auto) 0.0 ESR 72 H Sodium 137 Potassium 5.1 D Chloride 105 Carbon Dioxide 22 Anion Gap 15 BUN 15 Creatinine 1.02 0.94 Estim Creat Clear Calc 73.2 79.4 Estimated GFR > 60 > 60 Random Glucose 78 Lactic Acid 1.0 Calcium 9.2 Total Bilirubin 0.2 AST 57 H ALT 49 H Alkaline Phosphatase 87 C-Reactive Protein 2.20 H Total Protein 8.6 H Albumin 4.2 01/12/25 04:57 WBC 9.0 RBC 3.80 L Hgb 11.1 L Hct 34.2 L MCV 90.0 MCH 29.2 MCHC 32.5 RDW 13.1 Plt Count 372 MPV 8.7 L Immature Gran % (Auto) 1.0 H Neut % (Auto) 63.5 Lymph % (Auto) 26.6 [place] % (Auto) 8.6 Eos % (Auto) 0.0 Baso % (Auto) 0.3 Lymph # (Auto) 2.4 [place] # (Auto) 0.8 Eos # (Auto) 0.0 Baso # (Auto) 0.0 Abs Immat Gran (auto) 0.09 H Absolute Neuts (auto) 5.7 Absolute Nucleated RBC 0.000 Nucleated RBC % (auto) 0.0 ESR Sodium 138 Potassium 5.4 H Chloride 103 Carbon Dioxide 28 Anion Gap 12 BUN 12 Creatinine 0.86 Estim Creat Clear Calc 86.8 Estimated GFR > 60 Random Glucose 82 Lactic Acid Calcium 8.7 Total Bilirubin AST ALT Alkaline Phosphatase C-Reactive Protein Total Protein Albumin Mental Status Exam Mental Status Exam Level of Consciousness: Drowsy Patient Behavior: Cooperative Affect Description: Calm Speech Pattern: Clear Thought Process: Intact Thought Content: positive for Intact Judgement: Fair Medications Medications Current Medications Acetaminophen (Acetaminophen 325 Mg Tablet) 650 mg PO Q6H PRN PRN Reason: Pain, Mild 1-3,fever,headache Calcium Carbonate (Calcium Carbonate 750 Mg Tab.Chew) 750 mg PO Q4H PRN PRN Reason: Heartburn Enoxaparin Sodium (Enoxaparin Sodium 40 Mg/0.4 Ml Syringe) 40 mg SUBCUT Q24H [facility] Last Admin: 01/12/25 08:35 Dose: 40 mg Vancomycin HCl 1,000 mg/ (Sodium Chloride) 270 mls @ 270 mls/hr IV Q12H [facility] Last Infusion: 01/12/25 12:43 Dose: Infused Cefazolin Sodium/Dextrose (Ancef) 2 gm in 50 mls @ 100 mls/hr IV Q8H [facility] Last Infusion: 01/12/25 13:37 Dose: Infused Magnesium Hydroxide (Milk Of Magnesia 30 Ml Oral.Susp) 30 ml PO DAILY PRN PRN Reason: Constipation Melatonin (Melatonin 3 Mg Tablet) 6 mg PO BEDTIME PRN PRN Reason: Insomnia Ondansetron HCl (Ondansetron Hcl 4 Mg/2 Ml Vial) 4 mg IVPUSH Q8H PRN PRN Reason: Nausea and Vomiting Pharmacy Consult (Consult Rx Vancomycin Dosing) 1 each MISCELLANE DAILY PRN PRN Reason: Consult order Sodium Chloride (0.9 % Sodium Chloride Flush 3 Ml Syringe) 3 ml IVFLUSH QSHIFT [facility] Last Admin: 01/12/25 07:27 Dose: Not Given Allergies Allergies Allergy/AdvReac Type Severity Reaction Status Date / Time SEASONAL ALLERGIES Allergy Unknown ITCHY Uncoded 01/11/25 19:38 EYES/SNEEZING Assessment & Plan Assessment & Plan (1) Cocaine use disorder: Status: Acute Code(s): F14.10 - Cocaine abuse, uncomplicated Assessment and Plan: * risk reduction discussion * denies ongoing opiate use, or any withdrawal sx. does not want MOUD * director of sleep to follow up with additional resources and information * dispo pending * updated Hep C VL and HIV screen Total time managing care of this patient today _35___ minutes. PMFSH Past Medical History Medical History Fatty liver disease, nonalcoholic Hepatitis C IVDU (intravenous drug user) Surgical History Surgical History History of delivery H/O dilation and curettage Social History Social History Household Members: None Household Members Other:: Homeless Housing: Homeless Do you presently have visiting nurse or other home services: No Patient Tobacco Use Status: Current everyday Tobacco user Tobacco use type: Cigarette Cigarettes Per Day: 10 e-Cigarette/Vaping Use: Currently Using Second Hand Smoke Exposure: No (pt. refused) Substance Use Type: Crack/Cocaine Advance Directives Date on File: 09/16/23 service: No
[2025-01-12 19:53] VITALS: BP 109/53; PULSE 72; RESP 18; TEMP 36.6; O2SAT 98
[2025-01-13 03:53] VITALS: BP 104/59; PULSE 79; RESP 18; TEMP 36.9; O2SAT 97
[2025-01-13 06:15] LABS: Creatinine Clr Calc Pharmacy 90.3; Estimated Glomerular Filt Rate > 60
[2025-01-13] MEDS: 0.9 % Sodium Chloride Flush 3 ML SYRINGE IVFLUSH ×3 (07:10→19:34)
[2025-01-13 07:21] VITALS: BP 106/59; PULSE 78; RESP 16; TEMP 36; O2SAT 95
--- NOTE | 2025-01-13 09:53 | HO.PM.IMPN ---
Subjective Subjective Date of Service: 01/13/25 Interval History: No new complaints Physical Exam Vital Signs: Vital Signs: Last Vital Signs Temp 96.8 F 01/13/25 07:21 Pulse 78 01/13/25 07:21 Resp 16 01/13/25 07:21 BP 106/59 L 01/13/25 07:21 Pulse Ox 95 01/13/25 07:21 O2 Del Method Room Air 01/13/25 07:21 O2 Flow Rate 2 01/11/25 19:38 BMI result Body Mass Index 27.8 Const: Other: General: AO X 3, no acute distress Resp: CTA bilateral CVS: S1,S2,RRR GI: +BS, NT, no distention Skin: No rash Neuro: motor grossly intact Psych: appropriate affect Objective Data Active Medications Acetaminophen (Acetaminophen 325 Mg Tablet) 650 mg PO Q6H PRN PRN Reason: Pain, Mild 1-3,fever,headache Calcium Carbonate (Calcium Carbonate 750 Mg Tab.Chew) 750 mg PO Q4H PRN PRN Reason: Heartburn Enoxaparin Sodium (Enoxaparin Sodium 40 Mg/0.4 Ml Syringe) 40 mg SUBCUT Q24H [facility] Last Admin: 01/13/25 08:29 Dose: 40 mg Documented By: ILANA Vancomycin HCl 1,000 mg/ (Sodium Chloride) 270 mls @ 270 mls/hr IV Q12H [facility] Last Infusion: 01/13/25 00:22 Dose: Infused Documented By: SHAKIRA Cefazolin Sodium/Dextrose (Ancef) 2 gm in 50 mls @ 100 mls/hr IV Q8H [facility] Last Infusion: 01/13/25 03:55 Dose: Infused Documented By: SHAKIRA Magnesium Hydroxide (Milk Of Magnesia 30 Ml Oral.Susp) 30 ml PO DAILY PRN PRN Reason: Constipation Melatonin (Melatonin 3 Mg Tablet) 6 mg PO BEDTIME PRN PRN Reason: Insomnia Ondansetron HCl (Ondansetron Hcl 4 Mg/2 Ml Vial) 4 mg IVPUSH Q8H PRN PRN Reason: Nausea and Vomiting Pharmacy Consult (Consult Rx Vancomycin Dosing) 1 each MISCELLANE DAILY PRN PRN Reason: Consult order Sodium Chloride (0.9 % Sodium Chloride Flush 3 Ml Syringe) 3 ml IVFLUSH QSHIFT [facility] Last Admin: 01/13/25 07:10 Dose: 3 ml Documented By: ILANA Labs 01/12/25 04:57 01/13/25 05:47 Labs: Laboratory Results - last 24 hr 01/13/25 05:47 Estim Creat Clear Calc 90.3 Estimated GFR > 60 Microbiology Microbiology Results: Microbiology 01/11/25 23:26 Blood Culture - Preliminary Blood - Venous No growth after 24 hours. 01/11/25 22:14 Blood Culture - Preliminary Blood - Venous No growth after 24 hours. Assessment and Plan (1) Opioid use disorder: Status: Acute (2) MRSA bacteremia: Status: Acute (3) Sepsis: Status: Acute Plan 34-year-old female with pertinent history of polysubstance IVDU, iron-deficiency anemia, hepatitis-C who was brought to the emergency department after heroin overdose. MRSA Sepsis/bacteremia from 01/04 cultures repeat culture 01/11, negative at 24 hrs IV vancomycin, 01/11 Kefzol for synergy Repeat cultures pending Echo no vegetations ID consult Will need PICC for 4 weeks of IV Abx--Vanco or Dapto Left lung pneumonia aspiration vs possible septic embol Abx as above Acute toxic encephalopathy due to accidental heroin overdose, resolved after Narcan Polysubstance IVDU Consulted Addiction Team Hepatitis-C Outpatient follow-up DVT prophylaxis: Lovenox Full code Quality Stroke Does the patient have a stroke diagnosis?: No VTE Prior VTE?: No VTE Risk Level:: Medical - moderate - high VTE Device Contraindication: Treatment Not Indicated VTE Drug Contraindication: N/A - Med Ordered
--- NOTE | 2025-01-13 10:39 | PC.NURSE ---
Pt drowsy but arousable. Denies pain. Tolerating po well. Ambulates with standby assist to BR without difficulty
--- NOTE | 2025-01-13 12:21 | MHC.CM.PN ---
Per MD rounds patient is not medically cleared to discharge. Blood cultures are pending. Per MD, 4 weeks IV Vanco or Dapto planned. Patient will need to receive the ABX in a facility due to hx of substance abuse. T/W went to pts room to discuss discharge planning. Referrals for STR have been sent. Patient choice will be obtained once bed offers have been received. DP LT IV ABX in a SNF via BLS.
--- NOTE | 2025-01-13 14:33 | PC.NURSE ---
Pt states she is agreeable to STR for ABT x 4 Weeks.
[2025-01-13 15:48] VITALS: BP 119/56; PULSE 72; RESP 18; TEMP 36.3; O2SAT 97
[2025-01-13 20:00] VITALS: BP 124/65; PULSE 87; RESP 18; TEMP 36.5; O2SAT 99
[2025-01-14 03:34] VITALS: BP 120/73; PULSE 74; RESP 18; TEMP 36.6; O2SAT 98
[2025-01-14 07:00] LABS: Creatinine Clr Calc Pharmacy 107.5; Estimated Glomerular Filt Rate > 60
[2025-01-14 07:19] VITALS: BP 119/77; PULSE 69; RESP 16; TEMP 36.3; O2SAT 98
[2025-01-14] MEDS: 0.9 % Sodium Chloride Flush 3 ML SYRINGE IVFLUSH ×3 (09:12→21:53)
--- NOTE | 2025-01-14 11:07 | HE.PHANOTE ---
RE: VANCO DOSING Trough came back as 13.2 mg/L, renal function is stable. Dose is changed to 1000 mg q8h, next trough is scheduled for 01/15/25 @1000.
--- NOTE | 2025-01-14 11:07 | HO.PM.IMPN ---
Subjective Subjective Date of Service: 01/14/25 Interval History: No new complaints blood cultures negative x 48 hours Physical Exam Vital Signs: Vital Signs: Last Vital Signs Temp 97.4 F 01/14/25 07:19 Pulse 69 01/14/25 07:19 Resp 16 01/14/25 07:19 BP 119/77 01/14/25 07:19 Pulse Ox 98 01/14/25 07:19 O2 Del Method Room Air 01/14/25 07:19 O2 Flow Rate 2 01/11/25 19:38 BMI result Body Mass Index 27.8 Const: Other: General: AO X 3, no acute distress Resp: CTA bilateral CVS: S1,S2,RRR, no murmurs GI: +BS, NT, no distention Skin: No rash Neuro: motor grossly intact Psych: appropriate affect Objective Data Active Medications Acetaminophen (Acetaminophen 325 Mg Tablet) 650 mg PO Q6H PRN PRN Reason: Pain, Mild 1-3,fever,headache Calcium Carbonate (Calcium Carbonate 750 Mg Tab.Chew) 750 mg PO Q4H PRN PRN Reason: Heartburn Enoxaparin Sodium (Enoxaparin Sodium 40 Mg/0.4 Ml Syringe) 40 mg SUBCUT Q24H [facility] Last Admin: 01/14/25 09:11 Dose: 40 mg Documented By: SENG Cefazolin Sodium/Dextrose (Ancef) 2 gm in 50 mls @ 100 mls/hr IV Q8H [facility] Last Infusion: 01/14/25 03:52 Dose: Infused Documented By: SHAKIRA Magnesium Hydroxide (Milk Of Magnesia 30 Ml Oral.Susp) 30 ml PO DAILY PRN PRN Reason: Constipation Melatonin (Melatonin 3 Mg Tablet) 6 mg PO BEDTIME PRN PRN Reason: Insomnia Ondansetron HCl (Ondansetron Hcl 4 Mg/2 Ml Vial) 4 mg IVPUSH Q8H PRN PRN Reason: Nausea and Vomiting Pharmacy Consult (Consult Rx Vancomycin Dosing) 1 each MISCELLANE DAILY PRN PRN Reason: Consult order Sodium Chloride (0.9 % Sodium Chloride Flush 3 Ml Syringe) 3 ml IVFLUSH QSHIFT [facility] Last Admin: 01/14/25 09:12 Dose: 3 ml Documented By: SENG Labs 01/12/25 04:57 01/14/25 06:00 Labs: Laboratory Results - last 24 hr 01/14/25 01/14/25 06:00 09:47 Estim Creat Clear Calc 107.5 Estimated GFR > 60 Random Vancomycin 13.2 L Microbiology Microbiology Results: Microbiology 01/11/25 23:26 Blood Culture - Preliminary Blood - Venous No growth after 48 hours. 01/11/25 22:14 Blood Culture - Preliminary Blood - Venous No growth after 48 hours. Assessment and Plan (1) Opioid use disorder: Status: Acute (2) MRSA bacteremia: Status: Acute (3) Sepsis: Status: Acute Plan 34-year-old female with pertinent history of polysubstance IVDU, iron-deficiency anemia, hepatitis-C who was brought to the emergency department after heroin overdose. MRSA Sepsis/bacteremia from 01/04 cultures repeat culture 01/11, negative at 48 hrs IV vancomycin, 01/11 Kefzol for synergy Echo no vegetations ID consult pending Will need PICC for 4 weeks of IV Abx--Vanco or Dapto, she is agreable to go to a facility for continuous churn buttermaker Abx Left lung pneumonia aspiration vs possible septic embol Abx as above Acute toxic encephalopathy due to accidental heroin overdose, resolved after Narcan Polysubstance IVDU Consulted Addiction Team Hepatitis-C Outpatient follow-up DVT prophylaxis: Lovenox Full code Quality Stroke Does the patient have a stroke diagnosis?: No VTE Prior VTE?: No VTE Risk Level:: Medical - moderate - high VTE Device Contraindication: Treatment Not Indicated VTE Drug Contraindication: N/A - Med Ordered
[2025-01-14 15:30] VITALS: BP 113/65; PULSE 62; RESP 18; TEMP 36.2; O2SAT 98
--- NOTE | 2025-01-14 16:35 | MHC.RECOVRN ---
TW attempted to meet with pt 2x's however on both approaches pt was sleeping. No signs or symptoms of distress, respirations are even and unlabored. Attempted to discuss CSS options and follow-up on pt report of a missing cell phone. ACS team to continue following and available for further questions or concerns.
[2025-01-14 20:00] VITALS: BP 130/82; PULSE 82; RESP 16; TEMP 36.5; O2SAT 98
[2025-01-15 03:48] VITALS: BP 121/71; PULSE 72; RESP 16; TEMP 36.4; O2SAT 98
[2025-01-15] MEDS: 0.9 % Sodium Chloride Flush 3 ML SYRINGE IVFLUSH (07:24)
[2025-01-15 07:27] LABS: Creatinine Clr Calc Pharmacy 124.6; Estimated Glomerular Filt Rate > 60
[2025-01-15 07:41] VITALS: BP 118/69; PULSE 74; RESP 16; TEMP 36.3; O2SAT 98
--- NOTE | 2025-01-15 09:46 | P.PNIM_ITS ---
Subjective Subjective Date of Service: 01/15/25 Interval History: No new complaints blood cultures negative > 48 hrs Physical Exam 2 Vital Signs: Vital Signs: Last Vital Signs Temp 97.3 F 01/15/25 07:41 Pulse 74 01/15/25 07:41 Resp 16 01/15/25 07:41 BP 118/69 01/15/25 07:41 Pulse Ox 98 01/15/25 07:41 O2 Del Method Room Air 01/15/25 07:41 O2 Flow Rate 2 01/11/25 19:38 BMI result Body Mass Index 27.8 Const: Other: General: AO X 3, no acute distress Resp: CTA bilateral CVS: S1,S2,RRR, no murmurs GI: +BS, NT, no distention Skin: No rash Neuro: motor grossly intact Psych: appropriate affect Objective Data Active Medications Acetaminophen (Acetaminophen 325 Mg Tablet) 650 mg PO Q6H PRN PRN Reason: Pain, Mild 1-3,fever,headache Calcium Carbonate (Calcium Carbonate 750 Mg Tab.Chew) 750 mg PO Q4H PRN PRN Reason: Heartburn Enoxaparin Sodium (Enoxaparin Sodium 40 Mg/0.4 Ml Syringe) 40 mg SUBCUT Q24H [facility] Last Admin: 01/15/25 07:23 Dose: 40 mg Documented By: JENIFER Cefazolin Sodium/Dextrose (Ancef) 2 gm in 50 mls @ 100 mls/hr IV Q8H [facility] Last Infusion: 01/15/25 04:18 Dose: Infused Documented By: ALVIN Vancomycin HCl 1,000 mg/ (Sodium Chloride) 270 mls @ 270 mls/hr IV Q8H [facility] Last Infusion: 01/15/25 05:21 Dose: Infused Documented By: ALVIN Magnesium Hydroxide (Milk Of Magnesia 30 Ml Oral.Susp) 30 ml PO DAILY PRN PRN Reason: Constipation Melatonin (Melatonin 3 Mg Tablet) 6 mg PO BEDTIME PRN PRN Reason: Insomnia Ondansetron HCl (Ondansetron Hcl 4 Mg/2 Ml Vial) 4 mg IVPUSH Q8H PRN PRN Reason: Nausea and Vomiting Pharmacy Consult (Consult Rx Vancomycin Dosing) 1 each MISCELLANE DAILY PRN PRN Reason: Consult order Sodium Chloride (0.9 % Sodium Chloride Flush 3 Ml Syringe) 3 ml IVFLUSH QSHIFT [facility] Last Admin: 01/15/25 07:24 Dose: 3 ml Documented By: JENIFER Labs 01/12/25 04:57 01/15/25 06:34 Labs: Laboratory Results - last 24 hr 01/14/25 01/15/25 09:47 06:34 Estim Creat Clear Calc 124.6 Estimated GFR > 60 Random Vancomycin 13.2 L Microbiology Microbiology Results: Microbiology 01/11/25 23:26 Blood Culture - Preliminary Blood - Venous No growth after 48 hours. 01/11/25 22:14 Blood Culture - Preliminary Blood - Venous No growth after 48 hours. Assessment and Plan (1) Opioid use disorder: Status: Acute (2) MRSA bacteremia: Status: Acute (3) Sepsis: Status: Acute Plan 34-year-old female with pertinent history of polysubstance IVDU, iron-deficiency anemia, hepatitis-C who was brought to the emergency department after heroin overdose. MRSA Sepsis/bacteremia from 01/04 cultures repeat culture 01/11, negative at 48 hrs IV vancomycin, 01/11 Kefzol for synergy Echo no vegetations ID consult pending Will need PICC for 4 weeks of IV Abx--Vanco or Dapto--ID to decide, she is agreable to go to a facility for long-term Abx Left lung pneumonia aspiration vs possible septic embol Abx as above Acute toxic encephalopathy due to accidental heroin overdose, resolved after Narcan Polysubstance IVDU Consulted Addiction Team Hepatitis-C Outpatient follow-up DVT prophylaxis: Lovenox Full code Quality Stroke Does the patient have a stroke diagnosis?: No VTE Prior VTE?: No VTE Risk Level:: Medical - moderate - high VTE Device Contraindication: Treatment Not Indicated VTE Drug Contraindication: N/A - Med Ordered
--- NOTE | 2025-01-15 09:57 | PM.DS ---
DS: Providers Provider Date of Service: 01/15/25 Date of admission: 01/11/25 23:31 Date of discharge: 01/15/25 Primary care physician: Unknown Physician Consults: 01/11/25 23:32 Addiction Medicine Provider Routine Consulting Provider: Addiction Covering Reason for consultation: Polysubstance use disorder 01/13/25 09:55 Consult to Infectious Diseases Routine Consulting Provider: [facility] Reason for consultation: mRSA bactermia Has provider been notified: No 01/13/25 16:43 Inpt - Recovery Team Routine Comment: Reason for consultation: CHYNA eval DS: Diagnosis Discharge Diagnosis (1) Opioid use disorder: Status: Acute (2) MRSA bacteremia: Status: Acute (3) Sepsis: Status: Acute DS: Summary Hospital Course Hospital Course: admission Chief Complaint: Overdose This has a 34-year-old female with pertinent history of polysubstance IVDU, iron-deficiency anemia, hepatitis-C who was brought to the emergency department after heroin overdose. Patient was brought in [place] after drug overdose. She was given 4 mg nasal Narcan. Patient is drowsy and lethargic in the time of my evaluation but awakens to verbal stimulus and appropriately answers questions. She does endorse injecting IV heroin and she does not remember anything after. Also admits using cocaine. Denies history of infections in the past. Patient was diagnosed with pneumonia on 01/04 but did not complete antibiotic course. Her blood cultures from 01/04 are positive with MRSA bacteremia. She denies any complaints at this time. Unable to obtain complete review of systems. In the emergency department, patient was given IV vancomycin and imaging concerning for left-sided consolidation. Hospital course: 34-year-old female with pertinent history of polysubstance IVDU, iron-deficiency anemia, hepatitis-C who was brought to the emergency department after heroin overdose, she had previously been seen for pneumonia but did not complete antibiotics and a previously drawn blood culture sfrom 01/04 was positive for MRSA bacteremia and was started on IV Vancomycin and repeat blood cultures were drawn and so far have been negative onver 48 hours, echocardiogram show no vegetation. ID recommends MRSA Sepsis/bacteremia from 01/04 cultures repeat culture 01/11, negative at 48 hrs IV vancomycin, 01/11 Kefzol for synergy Echo no vegetations ID consult pending Will need PICC for 4 weeks of IV Abx--Vanco or Dapto, she is agreable to go to a facility for superintendent container terminal Abx Left lung pneumonia aspiration vs possible septic embol Abx as above Acute toxic encephalopathy due to accidental heroin overdose, resolved after Narcan Polysubstance IVDU Consulted Addiction Team Hepatitis-C Outpatient follow-up Physical Exam Vital Signs: Vital Signs: Last Vital Signs Temp 97.3 F 01/15/25 07:41 Pulse 74 01/15/25 07:41 Resp 16 01/15/25 07:41 BP 118/69 01/15/25 07:41 Pulse Ox 98 01/15/25 07:41 O2 Del Method Room Air 01/15/25 07:41 O2 Flow Rate 2 01/11/25 19:38 BMI result Body Mass Index 27.8 DS: Data Data Completed and Pending Labs on day of discharge: Laboratory Results - last 24 hr 01/14/25 01/15/25 09:47 06:34 Creatinine 0.63 Estim Creat Clear Calc 124.6 Estimated GFR > 60 Random Vancomycin 13.2 L Preliminary micro results at discharge 01/11/25 23:26 Blood Culture - Preliminary Blood - Venous No growth after 48 hours. 01/11/25 22:14 Blood Culture - Preliminary Blood - Venous No growth after 48 hours. Discharge Plan Discharge Referrals: [facility] [Outside] - 1 Week Referral Note: TRANSFER TO SHORT TERM REHAB FOR JAIL IN ANTIBIOTIC THERAPY Physician,Tona J [Primary Care Provider, Medical] - 1 Week Discharge Medications: No Action doxycycline hyclate 100 mg tablet 100 mg PO BID Qty: 14 0RF amoxicillin-pot clavulanate 875-125 mg tablet 1 tab PO BID Qty: 14 0RF Stand Alone Forms: Patient Portal Discharge page Print Language: Dutch
--- NOTE | 2025-01-15 10:28 | HE.PHANOTE ---
RE: VANCO DOSING Trough came back as 16.5 mg/L and renal function is stable. Continue with 1000 mg q8h, next trough is scheduled for 01/16/25 @1000.
--- NOTE | 2025-01-15 10:58 | PC.NURSE ---
Pt arrived to [facility] area for PICC placement at 10:25AM. Pt stated she is refusing PICC line unless she is going to a facility in [place] or close by then she said in [facility] . This automobile and property underwriter spoke with patient about her need for PICC in order to receive antibiotics that she really needs. Pt requested to go back to her room until she gets a definite answer of which facility she is going to. Combine Driver and order provider notified.
--- NOTE | 2025-01-15 11:32 | MHC.RECOVRN ---
Met with Chloe in follow-up. Pt resting calmly in bed in room 387. Upon approach and hearing her name called, pt opened her eyes and engaged briefly. She denied any current symptoms of withdrawal or discomfort and stated she is feeling well and just needs rest. No further questions or concerns reported at this time.
--- NOTE | 2025-01-15 11:55 | MHC.CM.PN ---
PT IS NOW DECLINING STR , DOES NOT WANT TO BE AWAY FROM FRIENDS IN THE AREA. MD/RN MADE AWARE AND PT WILL NOW LEAVE AMA. [facility] NOTIFIED.
--- NOTE | 2025-01-15 12:01 | PC.NURSE ---
patient left ama, midline removed, ama paperwork signed, patient spoken to about life threating possible events if she chooses to leave ama but still insisted
== END 2025-01-15 12:04 | disposition left against medical advice (07) | DRG 816 ==
LOC: HO.ED 20:46 → HO.EDOVER 23:38 → HO.S3 01-12 08:08
PROVIDERS: Admitting Provider Student in an Organized Health Care Education/Training Program; Emergency Provider Emergency Medicine; Visit Provider Internal Medicine
DX: T40.1X1A Poisoning by heroin, accidental (unintentional), initial encounter (principal); A41.02 Sepsis due to Methicillin resistant Staphylococcus aureus; J69.0 Pneumonitis due to inhalation of food and vomit; G92.8 Other toxic encephalopathy; B19.20 Unspecified viral hepatitis C without hepatic coma; F14.10 Cocaine abuse, uncomplicated; F17.210 Nicotine dependence, cigarettes, uncomplicated; Z71.6 Tobacco abuse counseling; F19.10 Other psychoactive substance abuse, uncomplicated; Z59.02 Unsheltered homelessness
CPT/HCPCS: 36415; 71045; 80048; 80053; 80202; 82565; 83605; 85025; 85652; 86140; 87040; 92610; 93306; 99285; J0295; J0690; J1650; J2543; J3374; J7120; Q9957; S9485

== ENCOUNTER → 2025-01-11 22:17 | Outpatient (BNV) | payer OTHER, SELFPAY | PROVIDERS: Admitting Provider Student in an Organized Health Care Education/Training Program; Emergency Provider Emergency Medicine; Visit Provider Radiology Diagnostic Radiology | DX: R78.81 Bacteremia (principal) | CPT/HCPCS: 71045 ==

== ENCOUNTER 2025-01-11 23:31 | Outpatient (BNV) | payer OTHER, SELFPAY | END 2025-01-12 07:00 | PROVIDERS: Admitting Provider Student in an Organized Health Care Education/Training Program; Emergency Provider Emergency Medicine; Visit Provider Internal Medicine | DX: I42.2 Other hypertrophic cardiomyopathy (principal) | CPT/HCPCS: 93306 ==

== ENCOUNTER → 2025-01-11 23:31 | Outpatient (BNV) | payer OTHER, SELFPAY | PROVIDERS: Admitting Provider Student in an Organized Health Care Education/Training Program; Emergency Provider Emergency Medicine; Visit Provider Student in an Organized Health Care Education/Training Program | DX: F11.90 Opioid use, unspecified, uncomplicated (principal); R78.81 Bacteremia; B95.62 Methicillin resistant Staphylococcus aureus infection as the cause of diseases classified elsewhere; A41.9 Sepsis, unspecified organism | CPT/HCPCS: 99223; 99232 ==

== ENCOUNTER → 2025-01-11 23:31 | Outpatient (BNV) | payer OTHER, SELFPAY | PROVIDERS: Admitting Provider Student in an Organized Health Care Education/Training Program; Emergency Provider Emergency Medicine; Visit Provider Nurse Practitioner Psychiatric/Mental Health | DX: F14.10 Cocaine abuse, uncomplicated (principal) | CPT/HCPCS: 99222 ==

== ENCOUNTER 2025-05-19 13:48 | Emergency (ER) | payer OTHER, SELFPAY ==
--- NOTE | ~2025-05-19 | CT_ITS ---
EXAMINATION: CT HEAD WITHOUT CONTRAST CLINICAL INFORMATION: posterior ear ecchymosis COMPARISON: None available. TECHNIQUE: Contiguous axial imaging was performed from the skull base to vertex without intravenous administration of contrast. This CT examination was performed using dose optimization techniques as appropriate, variously including the following: *Automated exposure control *Adjustment of mA and/or kV according to patient size (this includes techniques or standardized protocols for targeted exams where dose is matched to indication/reason for exam; i.e. extremities or head) *Use of iterative reconstruction technique DLP: 712.70 mGy-cm FINDINGS: No acute cortical disruption in the bony calvarium. No acute intracranial hemorrhage, mass effect, midline shift, hydrocephalus or herniation. Lynne-white matter differentiation is normal. Sellar/suprasellar region demonstrated no gross masses or hemorrhage. Craniocervical junction is intact with normal position of the cerebellar tonsils. Fluid density and mucosal thickening, left tympanic cavity, left mastoid antrum and left mastoid air cells without coalescence. Mucosal thickening in the osseous and cartilage segment of the left external auditory canal causing the obstruction of the airway. Right tympanic cavity and right mastoid cells are well pneumatized and aerated. Mucosal thickening, right frontal sinus and right frontal ethmoid recess right MR cells and both maxillary sinuses. Dextroconvex nasal septum deviation. CT/CT head/brain wo IV con IMPRESSION: No acute or structural brain abnormality by CT. Inflammatory versus infectious processes, left petrous bone. Cholesteatoma cannot be excluded. EXAMINATION: CT TEMPORAL BONES. CLINICAL INFORMATION: Left ureter pain and swelling. COMPARISON: Collated to CT head. TECHNIQUE: Contiguous axial images through the temporal bones with bone algorithm. Sagittal and coronal reformatted images acquired. This CT examination was performed using dose optimization techniques as appropriate, variously including the following: *Automated exposure control *Adjustment of mA and/or kV according to patient size (this includes techniques or standardized protocols for targeted exams where dose is matched to indication/reason for exam; i.e. extremities or head) *Use of iterative reconstruction technique DLP: 278.12 mGy-cm FINDINGS: RIGHT PETROUS BONE: External auditory canal: Patent without focal stenosis or soft tissue lesion. Tympanic cavity: Well pneumatized and aerated without soft tissue lesion. Tympanic membrane: Not thickened. Ossicles: Intact with normal alignment. Tegmen tympani: Intact. Sinus tympani: Aerated Oval window and round window: Aerated. Scutum: Intact. Fallopian canal/labyrinthine, geniculate, tympanic and mastoid segments: Intact without erosion or expansion. Aditus at antrum, mastoid antrum and mastoid cells: Well pneumatized and aerated. No air-fluid levels. Cochlear and vestibule: Intact with normal to one half turns of the cochlea. Semicircular canals are intact. Cochlear and vestibular aqueducts: Not enlarged. Internal auditory canal: Intact and symmetric. Internal jugular bulb and carotid canal: Intact and normal position. Temporal mandibular joint: Intact without gross degenerative changes. LEFT PETROUS BONE: External auditory canal: Irregular shaped mucosal thickening resulting in narrowing/obstruction of the cartilage and osseous segments. Tympanic cavity: Soft tissue attenuation extending from the hip both implant to the mesotympanum and Prussak's space. Tympanic membrane: Thickened. Ossicles: Intact with normal alignment. Tegmen tympani: Intact. Sinus tympani: Soft tissue attenuation. Oval window and round window: Soft tissue attenuation. Scutum: Grossly intact. Fallopian canal/labyrinthine, geniculate, tympanic and mastoid segments: Intact without erosion and or expansion. Aditus at antrum, mastoid antrum and mastoid cells: Mucosal thickening/secretions. No coalescent. Cochlear and vestibule: Intact with normal to and a half turns in the cochlea. Semicircular canals are intact. Cochlear and vestibular aqueducts: Not enlarged. Internal auditory canal: Intact and symmetric. Internal jugular bulb and carotid canal: Intact with normal position. Temporal mandibular joint: Intact without gross degenerative changes. Ancillary findings: Mild soft tissue fullness in the posterior nasopharynx. No discrete mass, Torus tubarius.. 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 Normal right temporal bone. Electronically signed by: Garrett Ruelas MD 05/19/2025 03:13 PM [facility]
[2025-05-19 13:56] VITALS: BP 148/79; PULSE 99; RESP 16; TEMP 37.2; O2SAT 97; BMI 26.6
--- NOTE | 2025-05-19 13:59 | ED.URI ---
HPI - URI/Sore Throat General Chief Complaint: Ear Problems Stated Complaint: Cough Congestion Running Nose Time Seen by Provider: 05/19/25 17:15 History of Present Illness ED Provider: suad MAR Narrative: Author / Clinician: Carter Lord MD (Emergency Medicine) Chief Complaint Left ear feels clogged with decreased hearing. History of Present Illness The patient presents with a 4-day history of a clogged sensation in the left ear associated with decreased hearing. The patient reports liquid drainage from the left ear occurring on a daily basis. No preceding trauma or injury to the ear. The patient felt feverish starting early this morning but has not measured an oral temperature. Denies sore throat or cough. Reports headache (location not specified). Denies neck pain or stiffness. Swallowing and drinking are tolerated without difficulty. No known chronic medical conditions reported. The patient denies daily prescription medications. Social history notable for tobacco use via vaping. No prior surgeries to the ears, throat, eyes, or head. Review of Systems Constitutional: Feels feverish since orthopaedic doctor. HEENT: Left ear clogged, ? hearing, daily liquid drainage. Denies sore throat, denies cough. Headache present (unspecified location). Neck: Denies neck pain or stiffness. GI/Resp/Other systems: Not discussed. Disposition Related Data Previous Rx's ?Medication ?Instructions ?Recorded amoxicillin 875 mg-potassium 1 tab PO BID #14 tabs 01/04/25 clavulanate 125 mg tablet doxycycline hyclate 100 mg tablet 100 mg PO BID #14 tabs 01/04/25 Allergies Allergy/AdvReac Type Severity Reaction Status Date / Time SEASONAL ALLERGIES Allergy Unknown ITCHY Uncoded 05/19/25 14:03 EYES/SNEEZING PMF Past Medical History Medical History Fatty liver disease, nonalcoholic Hepatitis C IVDU (intravenous drug user) Surgical History History of delivery H/O dilation and curettage Social History Social History Household Members: None Household Members Other:: Homeless Housing: Homeless Do you presently have visiting nurse or other home services: No Alcohol intake: current Alcohol intake frequency: a few times a month Patient Tobacco Use Status: Current everyday Tobacco user Tobacco use type: Cigarette Cigarettes Per Day: 10 Smoked in Last 30 Days: Yes e-Cigarette/Vaping Use: Currently Using Second Hand Smoke Exposure: No (pt. refused) Use of substances other than those prescribed or required for medical reasons: Yes Substance Use Type: Crack/Cocaine Advance Directives: Yes Advance Directives on File: Yes Advance Directives Date on File: 09/16/23 Do you have a plan to hurt others: No Plan service: No Physical Exam Exam: Exam: GENERAL: Well appearing. No apparent distress. Alert. HEAD/NECK: No visual trauma. EYES: Normal to inspection. No conjunctival erythema. No discharge. ENMT: Crusting ,swelling and tenderness of the external ear structures including the visible portions of the external auditory canal. Mild tenderness of the mastoid region. Evidence of crusted drainage. Unable to tolerate speculum exam due to pain swelling RESPIRATORY: Respiratory effort normal. CARDIOVASCULAR: Additional details (Grossly well perfused). SKIN: No jaundice. NEUROLOGICAL: Alert. Moving all extremities x4. Additional details (No gross motor deficits. Normal tone. ). PSYCHIATRIC: Alert. Appearance appropriate for situation. Vital Signs: Vital Signs: Last Vital Signs Temp 98.5 F 05/19/25 21:15 Pulse 83 05/19/25 21:15 Resp 18 05/19/25 21:15 BP 145/95 H 05/19/25 21:15 Pulse Ox 98 05/19/25 21:15 O2 Del Method Room Air 05/19/25 21:15 BMI result Body Mass Index 26.6 Course Course Course Narrative: This is a Rapid Medical Exam performed in triage by Valeri Pabon PA-C. Full HPI, ROS and PE to be performed by primary ED provider. 34 yo presenting to the ED c/o left ear pain, erythema/swelling and ecchymosis behind ear x4 days. Reports abnormal discharge and ear is clogged PE: + left posterior ear ecchymosis and tenderness to palpation. Ear mildly swollen and erythematous. Tender to palpation. External canal very swollen, unable to see TM Plan: Labs, CT Medications Administered Discontinued Medications Generic Name Dose Route Start Last Admin Trade Name Freq PRN Reason Stop Dose Admin Levofloxacin 500 mg in 100 mls @ 100 mls/hr 05/19/25 19:07 05/19/25 20:10 Levaquin IV 05/19/25 20:06 Infused ONCE ONE Infusion Medical Decision Making Medical Decision Making MDM Narrative: Medical Decision Making: [age] female poor historian ecchymosis behind the left ear and pain and drainage looks like she has got no severe otitis externa bony imaging which was initially done to possibly evaluate for trauma given the mccrary sign does not show traumatic injuries but suggests choleastatomaand possible inflammation or infectious process of the petrous bone which could indicate osteomyelitis. We will give IV antibiotics the patient is hemodynamically stable get blood cultures and plan on transfer. Preliminary Favored Differential Diagnosis: Otitis externa, skull base osteomyelitis, head or neck trauma, skull fracture, among additional considered etiologies Testing Interpreted Independently: ?See below for details Radiology or Lab testing Results Reviewed: ?See below for details Consults: ?Discuss the case with ENT at [facility] in [place] Dr. Galvan has accepted the case ED to ED transfer recommended Independent Historians/External Chart Reviews: ?See below for details Social Determinants of Health Impacting MDM/Planning: ?See below for details Lab Data MDM Lab Attestation statement: I reviewed the patient's lab results. 05/19/25 15:28 05/19/25 15:28 Labs: Lab Results 05/19/25 05/19/25 Range/Units 15:28 18:45 WBC 8.0 (4.8-10.8) X10*3/uL RBC 4.37 (4.20-5.50) X10*6/uL Hgb 13.0 (12.0-16.0) g/dl Hct 39.0 (37.0-47.0) % MCV 89.2 (80.0-98.0) fL MCH 29.7 (27.0-33.0) pg MCHC 33.3 (31.0-35.0) g/dl RDW 12.9 (11.0-16.0) % Plt Count 262 D (160-400) X10*3/uL MPV 9.4 (9.4-12.3) fL Immature Gran % (Auto) 0.3 (0.0-0.4) % Neut % (Auto) 56.8 (45-73) % Lymph % (Auto) 35.8 (20-40) % [place] % (Auto) 6.7 (2-11) % Eos % (Auto) 0.1 (0-4) % Baso % (Auto) 0.3 (0-2) % Lymph # (Auto) 2.9 (1.2-4.9) X10*3/uL [place] # (Auto) 0.5 (0.1-1.2) X10*3/uL Eos # (Auto) 0.0 (0.0-0.4) X10*3/uL Baso # (Auto) 0.0 (0.0-0.2) X10*3/uL Abs Immat Gran (auto) 0.02 (0.00-0.03) X10*3/uL Absolute Neuts (auto) 4.5 (2.0-8.3) x10*3/uL Absolute Nucleated RBC 0.000 (0.0-0.012) X10*3/uL Nucleated RBC % (auto) 0.0 (0.0-0.2) /100WBC ESR 31 H (0-20) MM/HR Sodium 139 (135-145) mmol/L Potassium 4.1 D (3.3-5.1) mmol/L Chloride 105 (96-108) mmol/L Carbon Dioxide 28 (22-29) mmol/L Anion Gap 10 L (12-20) BUN 18 H (9-16) mg/dL Creatinine 0.78 (0.5-1.4) mg/dL Estim Creat Clear Calc 106.1 Estimated GFR > 60 Random Glucose 104 (60-115) mg/dL Lactic Acid 1.4 (0.5-2.0) mmol/L Calcium 9.3 D (8.4-10.2) mg/dL C-Reactive Protein 0.75 H (< or = 0.50) mg/dL Procedures Procedure Narrative Procedure Narrative: Ultrasound Guided Peripheral Intravenous Catheter Placement Indication: Intravenous Access Location: Right ??Vascular Location of Catheter Tip: Brachial Provider: Self I was approached by nursing staff and informed that multiple unsuccessful attempts had been made to establish IV access in the patient. The patients arm was surveyed with the ultrasound for verification of vessel collapsibility, patency, depth and caliber, as well as identification of nearby structures. The target area was prepped with chlorhexidine. A tourniquet was placed proximally on the extremity. Under real-time ultrasound guidance, an ?20 G 10cm BARD Powerglide Midline Non Tunnelled Catheter was advanced into the target vein. Dark blood was visualized in the flash chamber. The catheter was easily advanced into the vein. The catheter was evacuated of air and flushed with sterile saline. The catheter was secured in place with a tegaderm. The patient tolerated the procedure well and there were no complications. Estimated Blood Loss: 1mL Total Time for Procedure: 5min Images Stored CPT: 74477; 36630 Discharge Plan Discharge Clinical Impression: Otitis externa, Acute osteomyelitis of cranium Patient Disposition: [facility] Transfer Details: Dr. Triana ENT accepts, Req Send to ED , [facility] for CT temporal bone. PT stable Instructions: Swimmer's Ear (ED), Osteomyelitis (ED) Prescriptions: No Action doxycycline hyclate 100 mg tablet 100 mg PO BID Qty: 14 0RF amoxicillin-pot clavulanate 875-125 mg tablet 1 tab PO BID Qty: 14 0RF Interventions: Acute Care Transfer Worksheet (ED) Last Done: 05/19/25 21:15 Discharge Date/Time: 05/19/25 21:16 Print Language: Lithuanian
[2025-05-19 15:46] LABS: MANUAL DIFF FLAG NO
[2025-05-19 15:48] LABS: Hematocrit 39.0 % (37.0-47.0); Hemoglobin 13.0 g/dl (12.0-16.0); Imm Gran Abs Auto 0.02 X10*3/uL (0.00-0.03); Imm Gran Pct Auto 0.3 % (0.0-0.4); Lymphocytes Absolute Auto 2.9 X10*3/uL (1.2-4.9); Mean Corpuscular HGB Conc 33.3 g/dl (31.0-35.0); Mean Corpuscular Hemoglobin 29.7 pg (27.0-33.0); Mean Corpuscular Volume 89.2 fL (80.0-98.0); NRBC Abs Auto 0.000 X10*3/uL (0.0-0.012); NRBC Pct Auto 0.0 /100WBC (0.0-0.2); Platelet Count 262 X10*3/uL (160-400); Red Blood Count 4.37 X10*6/uL (4.20-5.50); White Blood Count 8.0 X10*3/uL (4.8-10.8)
[2025-05-19 16:08] LABS: Anion Gap 10 (12-20); Blood Urea Nitrogen 18 mg/dL (9-16); Calcium 9.3 mg/dL (8.4-10.2); Carbon Dioxide 28 mmol/L (22-29); Chloride 105 mmol/L (96-108); Creatinine Clr Calc Pharmacy 106.1; Estimated Glomerular Filt Rate > 60; Potassium 4.1 mmol/L (3.3-5.1); Sodium 139 mmol/L (135-145)
[2025-05-19 16:31] LABS: Erythrocyte Sedimentation Rate 31 MM/HR (0-20)
--- NOTE | 2025-05-19 18:01 | PC.NURSE ---
Difficult IV stick, Dr Marquez to place U/S IV after tech attempts blood cultures.
[2025-05-19 18:51] VITALS: BP 133/80; PULSE 99; RESP 17; TEMP 37.7; O2SAT 97
--- NOTE | 2025-05-19 18:59 | PC.NURSE ---
Nurse to nurse to Sirisha spoke to Celia
--- NOTE | 2025-05-19 19:11 | PC.NURSE ---
new order for levo due to order being placed as pre op. Pt medicated per MAR
[2025-05-19 20:23] VITALS: BP 145/95; PULSE 83; RESP 18; O2SAT 98
[2025-05-19 21:15] VITALS: BP 145/95; PULSE 83; RESP 18; TEMP 36.9; O2SAT 98
== END 2025-05-19 21:16 | disposition short-term general hospital (02) ==
PROVIDERS: Physician Assistant; Emergency Provider Emergency Medicine; PCP Nurse Practitioner Family
DX: H60.92 Unspecified otitis externa, left ear (principal); M86.8X8 Other osteomyelitis, other site; R05.9 Cough, unspecified; R09.89 Other specified symptoms and signs involving the circulatory and respiratory systems; H92.02 Otalgia, left ear
CPT/HCPCS: 36410; 36415; 70450; 70481; 76937; 80048; 83605; 85025; 85652; 86140; 87040; 99284; 99285; J1956

== ENCOUNTER → 2025-05-19 14:03 | Outpatient (BNV) | payer OTHER, SELFPAY | PROVIDERS: PCP Nurse Practitioner Family; Visit Provider Radiology Diagnostic Radiology | DX: H92.02 Otalgia, left ear (principal); R23.3 Spontaneous ecchymoses | CPT/HCPCS: 70450; 70481 ==